=== PATIENT | female | born 1995 | race Caucasian/White ===

== ENCOUNTER → 2018-03-22 09:50 | Outpatient (CLI) | payer OTHER, SELFPAY ==
[2018-03-22 10:53] LABS: Add Manual Diff / Slide Review NO; Basophils Percent Auto 0.5 % (0-2); Eosinophils Percent Auto 0.6 % (2-4); Hematocrit 40.3 % (36-46); Hemoglobin 13.6 g/dL (12.0-16.0); Mean Corpuscular HGB Conc 33.8 % (30-36); Mean Corpuscular Hemoglobin 27.7 PG (26-34); Mean Corpuscular Volume 81.8 fL (80-100); Neutrophils Absolute Auto 8000 /uL (3000-5900); Neutrophils Percent Auto 76.9 % (50-75); Platelet Count 285 X10^3/uL (150-400); Red Blood Cell Count 4.93 X10^6/uL (4.0-5.2); Red Cell Distribution Width 12.6 % (11.6-14.8); White Blood Cell Count 10.4 X10^3/uL (4.5-11.0)
[2018-03-22 11:15] LABS: Appearance Urine UA CLEAR; Bilirubin Urine UA NEGATIVE (NEGATIVE); Color Urine UA YELLOW; Glucose Urine UA NEGATIVE (Normal); Ketones Urine UA TRACE (NEGATIVE); Leukocyte Esterase Urine UA TRACE (NEGATIVE); Nitrite Urine UA NEGATIVE (Negative); Occult Blood Urine UA NEGATIVE (Negative); Protein Urine UA TRACE (Negative); Urobilinogen Urine UA 0.2 E.U./dL (0.2); pH Urine UA 6.5 (4.5-8.0)
[2018-03-22 11:22] LABS: RBC Urine None Seen (0-5/HPF)
[2018-03-22 11:31] LABS: WBC Urine 1-5/HPF (0-5/HPF)
[2018-03-22 11:32] LABS: Bacteria Urine Moderate (10-30); Mucus Urine 2+ (Negative); Squamous Epithelial Cell Urine 5-10 /HPF
[2018-03-22 11:52] LABS: Hepatitis B Surface Antigen NEGATIVE s/c (NEGATIVE); Rubella Antibody IgG 15.4 IU/mL (>15)
[2018-03-22 12:09] LABS: HIV 1 and 2 Antibody NEGATIVE (NEGATIVE); Hep C Virus Ab w/Reflex Quant NEGATIVE s/c (NEGATIVE)
[2018-03-23 14:23] LABS: HSV 2 IGG AB < 0.90 index (< 0.90); HSV1IGG < 0.90 index (< 0.90)
[2018-03-23 15:51] LABS: RPR Screen Nonreactive (Nonreactive)
== END ==
PROVIDERS: PCP Specialist; Visit Provider Family Medicine
DX: Z34.01 Encounter for supervision of normal first pregnancy, first trimester (principal); Z3A.01 Less than 8 weeks gestation of pregnancy
CPT/HCPCS: 36415; 80055; 81003; 81015; 86695; 86696; 86703; 86787; 86803; 86850; 86900; 86901; 87086

== ENCOUNTER → 2018-05-26 13:55 | Outpatient (CLI) | payer OTHER, SELFPAY ==
[2018-06-02 10:40] LABS: AFP, Serum 52.3 ng/mL; Calc Gestational Age 16.4; Cigarette Smoker N; Donated Egg N; Donor Egg Age NOT GIVEN; Estriol, Free 2.03 ng/mL; Inhibin A, Dimeric 161 pg/mL; Maternal Ethnicity OTHER; Maternal Weight 127 lbs; Number of Fetuses 1; Previous Pregnancy Down Syndro N; hCG, MoM 0.61; hCG, Serum 22.8 IU/mL
== END ==
PROVIDERS: Visit Provider Family Medicine
DX: Z34.81 Encounter for supervision of other normal pregnancy, first trimester (principal); Z86.19 Personal history of other infectious and parasitic diseases
CPT/HCPCS: 36415; 82105; 82677; 84702; 86336; 87070

== ENCOUNTER → 2018-06-21 12:46 | Outpatient (CLI) | payer OTHER, SELFPAY ==
--- NOTE | 2018-06-21 12:48 | DI.US.S_ITS ---
PROCEDURE: US OB >= 14 WEEKS FETUS INDICATIONS: anatomy scan OUTSIDE/PRIOR DATING DATA: Last menstrual period (LMP): Unknown. LMP-based estimated date of delivery (CHAD): N./A.. First dating scan (date and location): 03/31/18. Estimated date of delivery (CHAD) from first dating scan: 11/05/18. TECHNIQUE: Real-time scanning was performed of the fetus, with image documentation and biometric measurements. Endovaginal scanning: No COMPARISON: [facility], , OB <= 14 WEEKS FETUS, 03/31/2018, 14:56. FINDINGS: General: A single living intrauterine gestation is present. Presentation: Vertex Placenta: Placental position is anterior, without previa. Amniotic fluid index: 17.5 cm, normal range is 5-24 cm. heart rate: 139 beats per minute. Maternal cervical canal: 3.9 cm long. Normal lower limit is 2.5 cm. biometrics: Biparietal diameter: 22 weeks Head circumference: 21 weeks 6 days Abdominal circumference: 21 weeks Femur length: 20 weeks 5 days Estimated gestational age from initial scan: 20 weeks 3 days Composite gestational age from present scan: 21 weeks 3 days Estimated weight and percentile: 393 g; 77 percentile Measurement variability for biometric dating: +/- 7 days from 14 weeks to 15 weeks 6 days gestation, +/- 10 days from 16 weeks to 21 weeks 6 days gestation, +/- 2 weeks from 22 weeks to 27 weeks 6 days gestation, +/- 3 weeks for 28 weeks gestation or later. weight reference: 4500 g or EFW >90/95% is considered macrosomia or large for gestational age. EFW <10% is small for gestational age. EFW 5% or less is considered intra-uterine growth restriction. Anatomic survey: Neuro: Ventricles are non-dilated at less than 10 mm. Cisterna magna is normal at 3-11 mm. Cerebellum is normal in size and morphology. Nuchal skin fold: Normal at less than 6 mm between 14-21 weeks gestational age. Face: Nose and lips, facial profile are normal. Spine: No evidence for spina bifida. Heart: 4-chambered heart is present, with normal ventricular outflow tracts. Diaphragm: Diaphragm is intact. Stomach: Left-sided stomach is present. Kidneys: No hydronephrosis. Normal is less than 5 mm in 2nd trimester, less than 7 mm in 3rd trimester. Cord: 3-vessel cord has orthotopic insertion. Bladder: Normal in size. Extremities: All 4 extremities identified. IMPRESSION: 1. Single living IUP redemonstrated and interval growth is normal. 2. Normal anatomic survey. Dictated by: Ismael Cameron [facility] Interpreted: Roxana Santoro MD on 06/21/2018 at 14:54 Approved by: Roxana Santoro M.D. on 06/21/2018 at 16:59
== END ==
PROVIDERS: PCP Specialist; Visit Provider Family Medicine
DX: Z34.92 Encounter for supervision of normal pregnancy, unspecified, second trimester (principal); Z3A.21 21 weeks gestation of pregnancy
CPT/HCPCS: 76811

== ENCOUNTER → 2018-08-30 12:13 | Outpatient (CLI) | payer OTHER, SELFPAY ==
[2018-08-30 14:15] LABS: Add Manual Diff / Slide Review NO; Basophils Absolute Auto 100 /uL (0-100); Basophils Percent Auto 0.4 % (0-2); Eosinophils Absolute Auto 200 /uL (0-450); Eosinophils Percent Auto 1.2 % (2-4); Hemoglobin 11.4 g/dL (12.0-16.0); Lymphocytes Absolute Auto 1800 /uL (1100-4500); Lymphocytes Percent Auto 12.2 % (25-40); Mean Corpuscular HGB Conc 33.6 % (30-36); Mean Corpuscular Hemoglobin 27.3 PG (26-34); Mean Corpuscular Volume 81.2 fL (80-100); Monocytes Absolute Auto 500 /uL (0-900); Monocytes Percent Auto 3.2 % (3-14); Neutrophils Absolute Auto 12100 /uL (1500-7000); Platelet Count 287 X10^3/uL (150-400); Red Blood Cell Count 4.19 X10^6/uL (4.0-5.2); Red Cell Distribution Width 12.9 % (11.6-14.8); White Blood Cell Count 14.5 X10^3/uL (4.5-11.0)
[2018-08-30 15:40] LABS: GTT (PREG) 1 Hour PP 50gm Dose 144 mg/dL (76-139)
== END ==
PROVIDERS: PCP Family Medicine; Visit Provider Family Medicine
DX: Z34.92 Encounter for supervision of normal pregnancy, unspecified, second trimester (principal); Z3A.24 24 weeks gestation of pregnancy
CPT/HCPCS: 36415; 82105; 82677; 82950; 84702; 85025; 86336

== ENCOUNTER → 2018-09-13 12:21 | Outpatient (CLI) | payer OTHER, SELFPAY ==
[2018-09-13 14:29] LABS: Glucose Fasting Gestational 75 mg/dL (76-95)
[2018-09-13 15:37] LABS: Glucose 1 Hour Gest 162 mg/dL (76-180)
[2018-09-13 15:38] LABS: Glucose 2 Hour Gest 121 mg/dL (76-155)
[2018-09-13 15:52] LABS: Glucose Tol Interp,Gestational INTERPRETATION
[2018-09-13 18:12] LABS: Glucose 3 Hour Gest 109 mg/dL (76-140)
== END ==
PROVIDERS: PCP Family Medicine; Visit Provider Family Medicine
DX: R73.09 Other abnormal glucose (principal)
CPT/HCPCS: 36415; 82951; 82952

== ENCOUNTER → 2018-10-11 08:34 | Outpatient (CLI) | payer OTHER, SELFPAY ==
[2018-10-13 12:48] LABS: Strep Grp B PCR NEG for Grp B Strep
== END ==
PROVIDERS: PCP Family Medicine; Visit Provider Family Medicine
DX: Z34.03 Encounter for supervision of normal first pregnancy, third trimester (principal); Z3A.36 36 weeks gestation of pregnancy
CPT/HCPCS: 87653

== ENCOUNTER 2018-10-12 20:58 | Observation (INO) | payer OTHER, SELFPAY | END 2018-10-12 23:15 | disposition home or self-care (01) | LOC: LABOR 21:02 | PROVIDERS: Admitting Provider Family Medicine; PCP Family Medicine; Visit Provider Family Medicine | DX: O26.893 Other specified pregnancy related conditions, third trimester (principal); M25.551 Pain in right hip; M25.521 Pain in right elbow; W19.XXXA Unspecified fall, initial encounter; Z3A.36 36 weeks gestation of pregnancy | CPT/HCPCS: 59025; 59050; G0378; G0379 ==

== ENCOUNTER 2018-11-03 11:52 | Observation (INO) | payer OTHER, SELFPAY ==
--- NOTE | 2018-11-03 12:51 | PM.OBTRLD ---
Visit Information Visit Information Date of evaluation: 11/03/18 Primary OB Provider: Evie Collazo Reason for Evaluation: Yes other Comments/Additional reasons for admission: Pt with 2x brief potential decels to the 80s heard on doppler in the clinic. PFSH Social History Smoking Status: Never smoker Social History Smoking Status: Never smoker Evaluation Evaluation Baseline heart rate: 120 Variability: Moderate (11-25) monitor accelerations: Present monitor decelerations: Absent Category of Tracing: I Diagnosis, Plan/Disposition Final Diagnosis (1) Non-reassuring heart tones complicating , antepartum: Current Visit: Yes Status: Acute Plan/Disposition Plan: Pt with reactive NST without decelerations on prolonged monitoring. Safe for discharge home. Discussed monitoring for ongoing movement. F/U appt next week scheduled. OB Disposition: home
== END 2018-11-03 13:30 | disposition home or self-care (01) ==
PROVIDERS: Admitting Provider Family Medicine; PCP Family Medicine; Visit Provider Family Medicine
DX: O36.8390 Maternal care for abnormalities of the fetal heart rate or rhythm, unspecified trimester, not applicable or unspecified (principal)
CPT/HCPCS: 59025; G0378; G0379

== ENCOUNTER 2018-11-03 21:49 | Inpatient (IN) | payer OTHER, SELFPAY ==
[2018-11-03 22:57] VITALS: BP 130/80
--- NOTE | 2018-11-04 | PATH_ITS ---
[facility] Accession Number: [id number] . 01 Material submitted: . placenta - PLACENTA . 01 Clinical history: . CULTURE FOR MATERNAL FEVER . 02 Diagnosis: Placenta, Delivery: Placenta parenchyma. Weight 512 grams. Chorionic villous maturation is consistent with a mature placenta. Moderate inter- and intravillous fibrin is present. No definite villitis identified. . . Membranes: Ruptured 5.5 cm from the placental disc margin. Very rare, small foci of chorioamnionitis present. Meconium staining present. . Umbilical Cord: Length 30.5 cm. Inserted 5.7 cm from the placental disc margin. Three vessels present. Focal, mild funisitis present. 11/08/2018 . 02 Electronically signed: . Amie Clark MD, Pathologist NPI- [id number] . 01 Gross description: . Received unfixed is an intact placenta which includes the placental disc (512 grams, 19.8 x 17.3 x 2.7 cm), membranes and umbilical cord (length-30.5 cm, diameter-up to 1.5 and 1.0 cm). The membranes are ruptured 5.5 cm from the edge of the placenta and are shiny and semi-translucent. The umbilical cord is attached 5.7 cm from the edge of the placenta and contains three vessels. The surface is smooth and shiny with no evidence of meconium identified. The maternal surface is dark maroon with normal cotyledon formation. The placental body is spongy with no nodules, masses or lesions identified. Section code: (A1) edge of placenta with membranes; (A2) umbilical cord, billing representative serial sections; (A3, A4, A5-A6) placenta, three full-thickness sections. Note: This is a split sample with a sample sent to microbiology for analysis. ([id number]) /MRV . 02 Pathologist provided ICD-10: O41.1031 . 02 CPT . 535615 Performed at: 01 [facility] [address] [id number] MD Ignacio Herrera MD Phone: [phone] Performed at: [id number] [place], [place] [id number] MD Charlene Ruby MD Phone: [phone]
[2018-11-04] MEDS: MORPHINE 10 MG/ML INJ 5 MG IM (04:46)
[2018-11-04] MEDS: hydrOXYzine 50 MG/ML INJ 25 MG IM (04:47)
[2018-11-04] MEDS: LACTATED RINGERS 1,000 ML 100 ML IV ×4 (06:30→15:00)
[2018-11-04 06:45] LABS: Add Manual Diff / Slide Review NO; Basophils Absolute Auto 100 /uL (0-100); Basophils Percent Auto 0.4 % (0-2); Eosinophils Absolute Auto 200 /uL (0-450); Hematocrit 31.5 % (36-46); Hemoglobin 10.1 g/dL (12.0-16.0); Lymphocytes Absolute Auto 2500 /uL (1100-4500); Lymphocytes Percent Auto 14.8 % (25-40); Mean Corpuscular HGB Conc 32.1 % (30-36); Mean Corpuscular Hemoglobin 24.3 PG (26-34); Mean Corpuscular Volume 75.8 fL (80-100); Monocytes Absolute Auto 900 /uL (0-900); Monocytes Percent Auto 5.5 % (3-14); Neutrophils Absolute Auto 13100 /uL (1500-7000); Neutrophils Percent Auto 78.3 % (50-75); Platelet Count 239 X10^3/uL (150-400); Red Blood Cell Count 4.16 X10^6/uL (4.0-5.2); Red Cell Distribution Width 13.6 % (11.6-14.8); White Blood Cell Count 16.7 X10^3/uL (4.5-11.0)
--- NOTE | 2018-11-04 08:01 | PM.OBHP.1 ---
OB HPI Date/Time Date of admission: 11/03/18 Date Patient Seen: 11/04/18 Time Patient Seen: 08:00 History of Present Condition Chief complaint: REJI LATHAM : 1 Para: 0 Estimated Date of Delivery: 11/07/18 Estimated Gestational Age (weeks): 39w4d Narrative: Kyleigh Medina is a 23 year old at 39w4d who presented with PROM. The pt reports that at approximately 9:15pm last night she felt a small gush of fluid, and then continued to leak after that time. She denies any vaginal bleeding. She was not feeling contractions or cramping at the time of rupture. Her contractions started early this morning. History of Present care: good care and initiated at week # (8) Dating criteria: LMP confirmed by 1st trimester US Ultrasounds: normal mid trimester US Obstetrical complications: none Medical complications: other (hx of asthma) Preadmission Labs Blood type: AB (+) positive -: Antibody screen: negative, GBS status: negative, HBsAG: negative, HIV: negative, HSV 1: negative, HSV 2: negative and RPR/VDLR: negative -: Rubella: immune and Varicella: immune HCT: 34.0 HCAB: negative 1 hr GTT: 144 3 hr GTT: 1 hr (162), 2 hr (121) and 3 hr (109) Fasting blood glucose: 75 Evaluation Evaluation Baseline heart rate: 120 Variability: Moderate (11-25) monitor accelerations: Present monitor decelerations: Absent Contraction Frequency (minutes): 3 Uterine Contraction Intensity: Strong/Firm Category of Tracing: I Cervical dilation (cm): 9 Cervical effacement (%): 100 station: 0 Laboratory results: Laboratory Tests 11/04/18 11/04/18 06:25 06:25 WBC 16.7 H RBC 4.16 Hgb 10.1 L Hct 31.5 L MCV 75.8 L MCH 24.3 L MCHC 32.1 RDW 13.6 Plt Count 239 Neut % (Auto) 78.3 H Lymph % (Auto) 14.8 L Saunders % (Auto) 5.5 Eos % (Auto) 1.0 L Baso % (Auto) 0.4 Neut # (Auto) 21913 H Lymph # (Auto) 2500 Saunders # (Auto) 900 Eos # (Auto) 200 Baso # (Auto) 100 Blood Type AB Positive Antibody Screen Negative [facility] Social History Smoking Status: Never smoker Social History Smoking Status: Never smoker Meds Home Medications Medication Instructions Recorded Confirmed Type fluticasone propionate 50 1 spray NASAL DAILY PRN 03/22/18 03/22/18 History mcg/actuation nasal spray,suspension 1 tab PO DAILY 03/22/18 03/22/18 History vitamin,calcium,zrbtdtcn-mame-nepvp acid tablet Allergies Allergy/AdvReac Type Severity Reaction Status Date / Time No Known Allergies Allergy Uncoded 03/22/18 09:49 Exam Narrative Exam Narrative: Gen: NAD, laying comfortably in bed, appears well CV: RRR, no murmurs Resp: clear to auscultation bilaterally Abd: soft, nondistended, gravid Ext: no edema Objective Labs Result Diagrams: 11/04/18 06:25 Labs: Laboratory Results - last 24 hr 11/04/18 11/04/18 06:25 06:25 WBC 16.7 H RBC 4.16 Hgb 10.1 L Hct 31.5 L MCV 75.8 L MCH 24.3 L MCHC 32.1 RDW 13.6 Plt Count 239 Neut % (Auto) 78.3 H Lymph % (Auto) 14.8 L Saunders % (Auto) 5.5 Eos % (Auto) 1.0 L Baso % (Auto) 0.4 Neut # (Auto) 38967 H Lymph # (Auto) 2500 Saunders # (Auto) 900 Eos # (Auto) 200 Baso # (Auto) 100 Blood Type AB Positive Antibody Screen Negative Assessment and Plan Assessment and Plan Assessment and Plan narrative: 23yo at 39w4d who presented with PROM. Now in active labor. GBS negative, Rh positive. - Expectant management, anticipate - GBS negative, no prophylaxis indicated - FHT reassuring - Epidural in place for pain control
--- NOTE | 2018-11-04 08:05 | P.HPOB_ITS ---
OB HPI Date/Time Date of admission: 11/03/18 Date Patient Seen: 11/04/18 Time Patient Seen: 08:00 History of Present Condition Chief complaint: REJI LATHAM : 1 Para: 0 Estimated Date of Delivery: 11/07/18 Estimated Gestational Age (weeks): 39w4d Narrative: Kyleigh Medina is a 23 year old at 39w4d who presented with PROM. The pt reports that at approximately 9:15pm last night she felt a small gush of fluid, and then continued to leak after that time. She denies any vaginal bleeding. She was not feeling contractions or cramping at the time of rupture. Her contractions started early this morning. History of Present care: good care and initiated at week # (8) Dating criteria: LMP confirmed by 1st trimester US Ultrasounds: normal mid trimester US Obstetrical complications: none Medical complications: other (hx of asthma) Preadmission Labs Blood type: AB (+) positive -: Antibody screen: negative, GBS status: negative, HBsAG: negative, HIV: negative, HSV 1: negative, HSV 2: negative and RPR/VDLR: negative -: Rubella: immune and Varicella: immune HCT: 34.0 HCAB: negative 1 hr GTT: 144 3 hr GTT: 1 hr (162), 2 hr (121) and 3 hr (109) Fasting blood glucose: 75 Evaluation Evaluation Baseline heart rate: 120 Variability: Moderate (11-25) monitor accelerations: Present monitor decelerations: Absent Contraction Frequency (minutes): 3 Uterine Contraction Intensity: Strong/Firm Category of Tracing: I Cervical dilation (cm): 9 Cervical effacement (%): 100 station: 0 Laboratory results: Laboratory Tests 11/04/18 11/04/18 06:25 06:25 WBC 16.7 H RBC 4.16 Hgb 10.1 L Hct 31.5 L MCV 75.8 L MCH 24.3 L MCHC 32.1 RDW 13.6 Plt Count 239 Neut % (Auto) 78.3 H Lymph % (Auto) 14.8 L Hand % (Auto) 5.5 Eos % (Auto) 1.0 L Baso % (Auto) 0.4 Neut # (Auto) 18920 H Lymph # (Auto) 2500 Hand # (Auto) 900 Eos # (Auto) 200 Baso # (Auto) 100 Blood Type AB Positive Antibody Screen Negative [facility] Social History Smoking Status: Never smoker Social History Smoking Status: Never smoker Meds Home Medications Medication Instructions Recorded Confirmed Type fluticasone propionate 50 1 spray NASAL DAILY PRN 03/22/18 03/22/18 History mcg/actuation nasal spray,suspension 1 tab PO DAILY 03/22/18 03/22/18 History vitamin,calcium,vmzypvfk-fnvf-spkdk acid tablet Allergies Allergy/AdvReac Type Severity Reaction Status Date / Time No Known Allergies Allergy Uncoded 03/22/18 09:49 Exam Narrative Exam Narrative: Gen: NAD, laying comfortably in bed, appears well CV: RRR, no murmurs Resp: clear to auscultation bilaterally Abd: soft, nondistended, gravid Ext: no edema Objective Labs Result Diagrams: 11/04/18 06:25 Labs: Laboratory Results - last 24 hr 11/04/18 11/04/18 06:25 06:25 WBC 16.7 H RBC 4.16 Hgb 10.1 L Hct 31.5 L MCV 75.8 L MCH 24.3 L MCHC 32.1 RDW 13.6 Plt Count 239 Neut % (Auto) 78.3 H Lymph % (Auto) 14.8 L Hand % (Auto) 5.5 Eos % (Auto) 1.0 L Baso % (Auto) 0.4 Neut # (Auto) 85172 H Lymph # (Auto) 2500 Hand # (Auto) 900 Eos # (Auto) 200 Baso # (Auto) 100 Blood Type AB Positive Antibody Screen Negative Assessment and Plan Assessment and Plan Assessment and Plan narrative: 23yo at 39w4d who presented with PROM. Now in active labor. GBS negative, Rh positive. - Expectant management, anticipate - GBS negative, no prophylaxis indicated - FHT reassuring - Epidural in place for pain control
--- NOTE | 2018-11-04 11:42 | PM.OBPNLAB ---
Date/Time Date Patient Seen: 11/04/18 Time Patient Seen: 11:30 Pain Control Pain control: epidural Pelvic Exam Dilation (cm): 10 Effacement (%): 100 station: +1 Amniotic membrane status: Ruptured Contractions Contraction frequency (min): 4 Contraction duration (min): 1 Contraction pattern: Regular Contraction intensity: Strong/Firm Status status: Category l Heart Rate Baseline: 130 Monitor Accelerations: Present Monitor Decelerations: Absent Monitor Variability: Moderate Assessment and Plan Comments: 23yo at 39w4d who presented with PROM. Transitioned to active labor without inductive agents. Now pushing for 2 hours with minimal descent. Pts pelvis is narrow at the outlet. Maternal exhaustion is setting in, with pushing becoming weaker. Will have Dr Tan come evaluate for possible forceps-assisted delivery. GBS negative, Rh positive. - GBS negative, no prophylaxis indicated - FHT reassuring - Epidural in place for pain control, working well - Will have Dr Tan evaluate for possible forceps delivery
--- NOTE | 2018-11-04 11:45 | P.PNOB_ITS ---
Date/Time Date Patient Seen: 11/04/18 Time Patient Seen: 11:30 Pain Control Pain control: epidural Pelvic Exam Dilation (cm): 10 Effacement (%): 100 station: +1 Amniotic membrane status: Ruptured Contractions Contraction frequency (min): 4 Contraction duration (min): 1 Contraction pattern: Regular Contraction intensity: Strong/Firm Status status: Category l Heart Rate Baseline: 130 Monitor Accelerations: Present Monitor Decelerations: Absent Monitor Variability: Moderate Assessment and Plan Comments: 23yo at 39w4d who presented with PROM. Transitioned to active labor without inductive agents. Now pushing for 2 hours with minimal descent. Pts pelvis is narrow at the outlet. Maternal exhaustion is setting in, with pushing becoming weaker. Will have Dr Tan come evaluate for possible forceps- assisted delivery. GBS negative, Rh positive. - GBS negative, no prophylaxis indicated - FHT reassuring - Epidural in place for pain control, working well - Will have Dr Tan evaluate for possible forceps delivery
--- NOTE | 2018-11-04 12:18 | PM.PREOP ---
Pre-operative Note Interval Note History & Physical reviewed/Exam performed by Physician: Yes Changes to H&P: No
--- NOTE | 2018-11-04 12:18 | PM.OBPNLAB ---
Date/Time Date Patient Seen: 11/04/18 Time Patient Seen: 12:00 Pain Control Pain control: epidural Pelvic Exam Dilation (cm): 10 Effacement (%): 100 station: +1 Amniotic membrane status: Ruptured Contractions Contraction frequency (min): 4 Contraction pattern: Regular Contraction intensity: Strong/Firm Status status: Category l Heart Rate Baseline: 140 Monitor Accelerations: Present Monitor Decelerations: Absent Monitor Variability: Moderate Assessment and Plan Comments: 23yo at 39w4d who presented with PROM, transitioned to active labor without induction agents. Pt with minimal descent after 2 hours and significant maternal exhaustion. Dr Tan consulted for forceps delivery. Laufe forceps were applied, and with traction applied for a total of 2 contractions and 4 pushes. Due to no descent, the forceps were terminated. The decision was made to proceed with primary due to failure to descend. The pt and her were consented for surgery. Discussed risks of infection, bleeding/hemorrhage, injury to other organs such as the bowel and bladder, injury to the fetus. The pt is agreeable to blood transfusion if medically necessary. The pts signed consent, and the form was placed in her chart. Pt to receive 2g Ancef prior to surgery.
--- NOTE | 2018-11-04 12:21 | P.PNOB_ITS ---
Date/Time Date Patient Seen: 11/04/18 Time Patient Seen: 12:00 Pain Control Pain control: epidural Pelvic Exam Dilation (cm): 10 Effacement (%): 100 station: +1 Amniotic membrane status: Ruptured Contractions Contraction frequency (min): 4 Contraction pattern: Regular Contraction intensity: Strong/Firm Status status: Category l Heart Rate Baseline: 140 Monitor Accelerations: Present Monitor Decelerations: Absent Monitor Variability: Moderate Assessment and Plan Comments: 23yo at 39w4d who presented with PROM, transitioned to active labor without induction agents. Pt with minimal descent after 2 hours and significant maternal exhaustion. Dr Tan consulted for forceps delivery. Laufe forceps were applied, and with traction applied for a total of 2 contractions and 4 pushes. Due to no descent, the forceps were terminated. The decision was made to proceed with primary due to failure to descend. The pt and her were consented for surgery. Discussed risks of infection , bleeding/hemorrhage, injury to other organs such as the bowel and bladder, injury to the fetus. The pt is agreeable to blood transfusion if medically necessary. The pts signed consent, and the form was placed in her chart. Pt to receive 2g Ancef prior to surgery.
[2018-11-04] MEDS: CEFAZOLIN 2 GM/100 ML FROZ.PIGGY IV (12:45)
--- NOTE | 2018-11-04 13:15 | SUR.OPER ---
Viable male born at 13:05. Cord blood x2 and placenta sent with L&D RN.
[2018-11-04] MEDS: miSOPROStol 200 MCG TABLET 400 MCG VAG (13:42)
[2018-11-04 13:48] VITALS: BP 112/44; PULSE 99; RESP 16; TEMP 36.6; O2SAT 98
[2018-11-04 13:53] VITALS: BP 117/50; PULSE 90; RESP 16; O2SAT 100
[2018-11-04] MEDS: MEPERIDINE 50 MG/ML INJ 25 MG IV (13:55)
[2018-11-04 13:58] VITALS: BP 111/59; PULSE 91; RESP 18; O2SAT 100
--- NOTE | 2018-11-04 13:59 | PM.OP.1 ---
Operative Date/Time/Diagnoses Date of procedure: 11/04/18 Time of procedure: 12:30 Pre-op diagnosis: 39w4d gestation GBS negative Rh positive Failure to descend Post-op diagnosis: same Procedure & Clinicians Procedure: Primary Same procedure as scheduled: Yes Indications: Failure to descend Surgeon: Evie Collazo Machine Bobbin Winder: Fernando Tan Click Yes if Unassisted: No Anesthesia Type: Epidural Operative Notes Findings: Normal uterus, ovaries, and tubes Closure Type: primary Specimen(s): none sent Applied: catheter Estimated Blood Loss (mL): 700 Blood products transfused: none Procedure in detail: OPERATIVE COURSE: The patient was taken to the operating room where epidural anesthesia was found to be adequate. She was then prepared and draped in the normal sterile fashion in the dorsal supine position with a leftward tilt. Anesthesia was tested and found to be adequate. A Pfannensteil skin incision was then made with the scalpel and carried through to the underlying layer of fascia with the scalpel. The fascia was incised in the midline and the incision extended laterally with the Montero scissors. The superior aspect of the fascial incision was then grasped with Vineet clamps, elevated, and the underlying rectus muscles dissected off bluntly and sharply where needed. Attention was then turned to the inferior aspect of the incision which, in a similar fashion, was grasped, tented up with Vineet clamps, and the rectus muscle dissected off bluntly and sharply with Montero scissors. The rectus muscles were then in the midline, and the peritoneum was identified and entered bluntly. The peritoneal incision was then extended with good visualization of the bladder. The bladder blade was then inserted and the vesicouterine peritoneum identified, grasped with pick-ups and entered sharply with the Metzenbaum scissors. The incision was then extended laterally and the bladder flap created digitally. The bladder blade was then reinserted and the lower uterine segment incised in a transverse fashion with the scalpel. The uterine incision was then extended superolaterally by pulling superolaterally on both sides. The bladder blade was removed the infant's head was flexed out of OP position and delivered atraumatically. The nose and mouth were suctioned with bulb suction and the cord was clamped and cut. The infant was handed off to the waiting nursing staff, crying. Cord blood was collected for Rh status. The placenta was then delivered with gentle cord traction. The uterus was then exteriorized and cleared of all clots and debris. The uterine incision was repaired with O-Vicryl in a running, locked fashion. A second layer of the same suture was used for imbrication. Bleeding was noted at the left side of the hysterotomy, which was controlled with a figure of eight and short running locked suture with O-Vicryl for excellent hemostasis. The gutters were cleared of all clots. Hysterotomy was investigated and found to be hemostatic. The bladder flap was reapproximated with 2-O Vicryl. The peritoneum was closed with 3-O Vicryl. The fascia was reapproximated with O-Vicryl in a running fashion. The subcutaneous tissue was reapproximated with 3-O Vicryl. The skin was closed with 4-O Vicryl. After surgery, with fundal massage the pt was noted to have a constant small flow of blood. She received 1000mcg rectal cytotec in addition to an additional 20 units of pitocin, and her bleeding stopped. ROM APPEARANCE: Clear BABY A DELIVERY TIME: 13:05 BABY A OUTCOME: Viable BABY A SEX: Male BABY A WEIGHT: 8lb1.4oz BABY A NUCHAL CORD: None BABY A # CORD VESSELS: 3 BABY A 1 MINUTE: 8 BABY A 5 MINUTES: 9 PLACENTA DELIVERY TIME: 13:07 PLACENTAL DELIVERY TYPE: Spontaneous PLACENTA APPEARANCE: Intact SPONGE AND NEEDLE COUNTS: Correct x3. DRESSING: Aquacel ANTICOAGULATION: SCDs applied prior to Surgery: Yes Preop antibiotics given (see MAR). The patient was taken to recovery room having tolerated procedure well. cytotec, 40 u pitocin Complications: none Condition: stable Plan for aftercare: Normal post care
[2018-11-04 14:03] VITALS: BP 115/69; PULSE 87; RESP 15; O2SAT 98
[2018-11-04 14:14] VITALS: BP 114/48; PULSE 103; RESP 19; TEMP 36.8; O2SAT 99
--- NOTE | 2018-11-04 17:54 | SUR.PHASEI ---
Late entry: stable pacu stay. Demerol given for shakes not resolved with bare hugger, resolved with med given, reported off to [facility], pt brought to [facility] by transporters and left in stable condition.
[2018-11-04 20:03] VITALS: TEMP 38.2
[2018-11-04] MEDS: ACETAMINOPHEN 325 MG TABLET 650 MG PO (20:03)
[2018-11-04] MEDS: KETOROLAC 30 MG/ML VIAL IV (20:04)
[2018-11-04] MEDS: GENTAMICIN 350 MG in SODIUM CHLORIDE 0.9% 100 ML 108.75 ML IV (20:05)
[2018-11-04] MEDS: CLINDAMYCIN 900 MG/50 ML PIGGYBACK 50 MG IV (21:10)
[2018-11-05] VITALS (15 sets, daily range): BP systolic 98–124; BP diastolic 59–79; PULSE 81–96; RESP 14–18; TEMP 36.6–36.8; O2SAT 95–98
[2018-11-05] MEDS: LACTATED RINGERS 1,000 ML 100 ML IV ×2 (02:40→12:14)
[2018-11-05] MEDS: CLINDAMYCIN 900 MG/50 ML PIGGYBACK 50 MG IV ×3 (04:39→20:37)
[2018-11-05] MEDS: KETOROLAC 30 MG/ML VIAL IV ×2 (04:40→12:05)
[2018-11-05 06:59] LABS: Hematocrit 21.4 % (36-46); Hemoglobin 6.9 g/dL (12.0-16.0)
[2018-11-05 07:26] LABS: Add Manual Diff / Slide Review NO; Basophils Absolute Auto 100 /uL (0-100); Basophils Percent Auto 0.5 % (0-2); Eosinophils Absolute Auto 100 /uL (0-450); Lymphocytes Absolute Auto 1900 /uL (1100-4500); Lymphocytes Percent Auto 14.2 % (25-40); Mean Corpuscular HGB Conc 32.5 % (30-36); Mean Corpuscular Hemoglobin 24.5 PG (26-34); Mean Corpuscular Volume 75.4 fL (80-100); Monocytes Absolute Auto 1000 /uL (0-900); Monocytes Percent Auto 7.5 % (3-14); Neutrophils Absolute Auto 10200 /uL (1500-7000); Neutrophils Percent Auto 76.8 % (50-75); Platelet Count 171 X10^3/uL (150-400); Red Blood Cell Count 2.78 X10^6/uL (4.0-5.2); Red Cell Distribution Width 13.3 % (11.6-14.8); White Blood Cell Count 13.3 X10^3/uL (4.5-11.0)
[2018-11-05 07:27] LABS: Hematocrit 20.9 % (36-46); Hemoglobin 6.8 g/dL (12.0-16.0)
[2018-11-05] MEDS: LANOLIN OINT 7 GM 1 APPLIC TOP (08:18)
[2018-11-05] MEDS: FERROUS GLUCONATE 324 MG TABLET PO (08:18)
[2018-11-05] MEDS: DOCUSATE 250 MG CAPSULE PO (08:18)
[2018-11-05] MEDS: PRENATAL VIT,CALC/IRON/FOLIC 1 TABLET 1 TAB PO (08:18)
[2018-11-05] MEDS: OXYCODONE/ACETAMINOPHEN 5/325 TABLET 2 TAB PO ×3 (11:44→20:37)
--- NOTE | 2018-11-05 12:44 | P.PNOB_ITS ---
Subjective - OB Narrative: The pt has no specific concerns this morning. Her feliciano remains in place and she has not yet ambulated. Her pain has been adequately controlled and minimal. Her lochia is appropriate. She has passed flatus. She denies feeling lightheaded or having palpitations, but has not moved in bed very much. Date Patient Seen: 11/05/18 Time Patient Seen: 08:00 Exam Vital Signs (past 8 hours): - 11/05/18 09:39 11/05/18 09:46 11/05/18 10:03 Temperature 98.1 F 98.1 F 97.9 F Pulse Rate 87 96 H 93 H Respiratory Rate 16 16 16 Blood Pressure 100/59 L 105/68 98/63 Pulse Oximetry 96 11/05/18 10:30 11/05/18 11:10 11/05/18 11:40 Temperature 98.2 F 98.0 F 98.1 F Pulse Rate 87 81 85 Respiratory Rate 16 18 16 Blood Pressure 105/67 108/65 112/68 Pulse Oximetry 96 98 97 11/05/18 11:44 11/05/18 12:05 Temperature 98.1 F 98.1 F Pulse Rate Respiratory Rate Blood Pressure Pulse Oximetry Oxygen Delivery Method Room Air Narrative Exam Narrative: Gen: NAD, sitting comfortably in bed, speaking easily, appears pale CV: RRR, no murmurs Resp: clear to auscultation bilaterally Abd: soft, tender to palpation over fundus without rebound/guarding/rigidity, nondistended, normoactive bowel sounds, dressing c/d/i Ext: no edema Objective Labs Result Diagrams: 11/05/18 06:30 Labs: Laboratory Results - last 24 hr 11/04/18 11/05/18 11/05/18 06:25 06:30 06:30 WBC 13.3 H RBC 2.78 L Hgb 6.9 L* 6.8 L* Hct 21.4 L 20.9 L* MCV 75.4 L MCH 24.5 L MCHC 32.5 RDW 13.3 Plt Count 171 Neut % (Auto) 76.8 H Lymph % (Auto) 14.2 L [place] % (Auto) 7.5 Eos % (Auto) 1.0 L Baso % (Auto) 0.5 Neut # (Auto) 78143 H Lymph # (Auto) 1900 [place] # (Auto) 1000 H Eos # (Auto) 100 Baso # (Auto) 100 Blood Type AB Positive Antibody Screen Negative Crossmatch See Detail Assessment & Plan (1) S/P : Status: Resolved Current Visit: Yes (2) Failure of descent in labor, delivered, current hospitalization: Status: Acute Current Visit: Yes (3) Failed forceps: Status: Acute Current Visit: Yes (4) fever: Status: Acute Current Visit: Yes (5) Acute blood loss anemia: Status: Acute Current Visit: Yes Plan Comments: 23yo POD #1 s/p primary for failure to descend and failed forceps. Pt developed a fever at approximately 6hrs , with Tmax 101.9F, with associated tachycardia. She was started on Gentamicin and Clindamycin, and has been afebrile since 8:45pm last night. Pt does have some fundal tenderness today, no evidence of significant atelectasis or DVT on exam today. The pt also has significant anemia from acute blood loss during surgery. - Will continue to treat for endometritis; continue Gentamicin and Clindamycin until afebrile for 24hrs - Tylenol PRN for fever - F/U blood cultures - Transfuse 2 units PRBCs today - Repeat CBC 1hr after transfusion completed - Remove feliciano to have ambulate after transfusions complete - Normal /postoperative care - support Time Spent With Patient Total time spent is greater than 50% in coordination of care (as documented) at patient's floor/unit and/or counseling patient: 15-24 minutes
[2018-11-05 17:30] LABS: Add Manual Diff / Slide Review NO; Basophils Absolute Auto 100 /uL (0-100); Basophils Percent Auto 0.3 % (0-2); Eosinophils Absolute Auto 100 /uL (0-450); Eosinophils Percent Auto 0.8 % (2-4); Hematocrit 29.4 % (36-46); Hemoglobin 10.1 g/dL (12.0-16.0); Lymphocytes Absolute Auto 1100 /uL (1100-4500); Lymphocytes Percent Auto 6.1 % (25-40); Mean Corpuscular HGB Conc 34.2 % (30-36); Mean Corpuscular Hemoglobin 25.8 PG (26-34); Mean Corpuscular Volume 75.4 fL (80-100); Monocytes Absolute Auto 1200 /uL (0-900); Monocytes Percent Auto 6.9 % (3-14); Neutrophils Absolute Auto 15500 /uL (1500-7000); Neutrophils Percent Auto 85.9 % (50-75); Platelet Count 193 X10^3/uL (150-400); Red Cell Distribution Width 14.1 % (11.6-14.8)
[2018-11-05] MEDS: IBUPROFEN 600 MG TABLET PO (18:34)
[2018-11-05] MEDS: GENTAMICIN 120 MG in SODIUM CHLORIDE 0.9% 100 ML 103 ML IV (22:39)
[2018-11-06] MEDS: OXYCODONE/ACETAMINOPHEN 5/325 TABLET 2 TAB PO ×5 (00:38→23:37)
[2018-11-06] MEDS: IBUPROFEN 600 MG TABLET PO ×4 (00:39→19:34)
[2018-11-06 05:18] LABS: Add Manual Diff / Slide Review NO; Basophils Absolute Auto 100 /uL (0-100); Basophils Percent Auto 0.3 % (0-2); Eosinophils Absolute Auto 300 /uL (0-450); Eosinophils Percent Auto 1.8 % (2-4); Hemoglobin 9.4 g/dL (12.0-16.0); Lymphocytes Absolute Auto 1900 /uL (1100-4500); Lymphocytes Percent Auto 10.1 % (25-40); Mean Corpuscular HGB Conc 33.4 % (30-36); Mean Corpuscular Hemoglobin 25.5 PG (26-34); Mean Corpuscular Volume 76.5 fL (80-100); Monocytes Absolute Auto 1200 /uL (0-900); Monocytes Percent Auto 6.7 % (3-14); Neutrophils Absolute Auto 15100 /uL (1500-7000); Neutrophils Percent Auto 81.1 % (50-75); Platelet Count 210 X10^3/uL (150-400); Red Blood Cell Count 3.67 X10^6/uL (4.0-5.2); White Blood Cell Count 18.6 X10^3/uL (4.5-11.0)
[2018-11-06 05:22] LABS: Estimated Glomerular Filt Rate > 60.0 mL/min (>60)
[2018-11-06] MEDS: PRENATAL VIT,CALC/IRON/FOLIC 1 TABLET 1 TAB PO (08:07)
[2018-11-06] MEDS: DOCUSATE 250 MG CAPSULE PO (08:07)
[2018-11-06] MEDS: FERROUS GLUCONATE 324 MG TABLET PO (08:07)
--- NOTE | 2018-11-06 10:26 | P.DS_ITS ---
Discharge Providers Date of admission: 11/03/18 21:49 Discharge Date: 11/07/18 Primary care physician: Evie Collazo MD Consults: 11/04/18 14:41 Consult to Ro[facility] [place] Routine Comment: Discharge provider: Evie Collazo MD Summary Date Patient Seen: 11/07/18 Time Patient Seen: 09:00 Procedures: Primary Hospital Course: The patient presented with PROM. She transition into active labor without inductive agents. She received an epidural for pain control. She progressed to complete. Due to maternal exhaustion and slow descent, forceps were attempted by Dr Tan. There was no descent with the forceps, and the decision was made to proceed with primary for failure to descend. The surgery was without complications, and she delivered a viable baby boy with APGARs 8/9, weight 8lb1.4oz. , the pt developed a fever up to 101.9F. She was started on Gentamicin and Clindamycin for endometritis, with resolution of the fever after 24hrs on antibiotics. The antibiotics were then discontinued. The pt also had significant anemia. She received 2 units of PRBCs with appropriate response in her H/H. At the time of discharge, the pt was feeling well and ready to go home. Her lochia was decreasing appropriately. She was voiding, ambulating, and passing flatus without difficulty. Her pain was adequately controlled. She was with good latch. She will f/u in clinic on 11/10 for incision check. She is undecided regarding contraception, and will likely use the rhythm method. Peripartum Data Infant Delivery Method: Section Procedures: Primary 1: Gender: Male Disposition of : home Discharge Diagnosis (1) S/P : Status: Resolved (2) Failure of descent in labor, delivered, current hospitalization: Status: Acute (3) Failed forceps: Status: Acute (4) fever: Status: Acute (5) Acute blood loss anemia: Status: Acute Status at Discharge Cognitive/behavioral status at discharge: oriented Functional status at discharge: independent ambulation Overall status at discharge: patient is progressing back to baseline Time Spent with Patient Total time spent providing and/or coordinating discharge services: Greater than 30 minutes Objective Labs Result Diagrams: 11/06/18 04:42 11/06/18 04:42 Labs: Laboratory Results - last 24 hr 11/04/18 11/05/18 11/06/18 06:25 16:30 04:42 WBC 18.0 H RBC 3.90 L Hgb 10.1 L Hct 29.4 L MCV 75.4 L MCH 25.8 L MCHC 34.2 RDW 14.1 Plt Count 193 Neut % (Auto) 85.9 H Lymph % (Auto) 6.1 L [place] % (Auto) 6.9 Eos % (Auto) 0.8 L Baso % (Auto) 0.3 Neut # (Auto) 24329 H Lymph # (Auto) 1100 [place] # (Auto) 1200 H Eos # (Auto) 100 Baso # (Auto) 100 Creatinine 0.60 Estimated GFR > 60.0 Blood Type AB Positive Antibody Screen Negative Crossmatch See Detail 11/06/18 04:42 WBC 18.6 H RBC 3.67 L Hgb 9.4 L Hct 28.0 L MCV 76.5 L MCH 25.5 L MCHC 33.4 RDW 14.0 Plt Count 210 Neut % (Auto) 81.1 H Lymph % (Auto) 10.1 L [place] % (Auto) 6.7 Eos % (Auto) 1.8 L Baso % (Auto) 0.3 Neut # (Auto) 52674 H Lymph # (Auto) 1900 [place] # (Auto) 1200 H Eos # (Auto) 300 Baso # (Auto) 100 Creatinine Estimated GFR Blood Type Antibody Screen Crossmatch Exam Vital Signs (past 8 hours): Oxygen Delivery Method Room Air Narrative Exam Narrative: Gen: NAD, sitting comfortably in chair, appears well CV: RRR, no murmurs Resp: clear to auscultation bilaterally Abd: soft, nondistended, appropriately tender, normoactive bowel sounds, dressing c/d/i Ext: trace edema Discharge Plan Discharge Plan Patient Disposition: Home Discharge Med Rec/Prescriptions Prescriptions: New acetaminophen 325 mg Tablet 650 mg PO Q6HR PRN (Reason: As Needed For Fever/Mild Pain) Qty: 30 RF: 0 oxycodone-acetaminophen 5-325 mg Tablet 2 tab PO Q4HR PRN (Reason: Pain, Severe (7-10)) Qty: 40 RF: 0 ibuprofen 600 mg Tablet 600 mg PO Q6HR PRN (Reason: As Needed For Fever/Mild Pain) Qty: 30 RF: 0 docusate sodium 250 mg Capsule 250 mg PO DAILY Qty: 30 RF: 0 Zaf-C-Wpvjup Cream 1 applic topical PRN PRN (Reason: Tenderness) Qty: 15 RF: 0 ferrous gluconate 324 mg (38 mg iron) Tablet 324 mg PO DAILY Qty: 30 RF: 0 Continued prenat.vits,zack,bhh-okhr-rxtny [ Vitamin] tablet 1 tab PO DAILY RF: 0 fluticasone propionate 50 mcg/actuation spray,suspension 1 spray NASAL DAILY PRN (Reason: allergy symptoms) RF: 0 No Action ondansetron 4 mg tablet,disintegrating 4 mg PO TID-QID PRN (Reason: nausea and vomiting) Qty: 10 RF: 0 Follow up/Referrals: Evie Collazo MD [Primary Care Provider] - 11/10/18 2:00 pm (Thursday,November at 2:00pm with for dressing removal) Provider Discharge Instructions Diet: Diet as Tolerated and Regular Skin/Wound/Dressing Care Report to your healthcare provider any signs of infection, such as:: chills, fever, increased pain, unusual drainage and unusual redness Visit Report/Discharge Packet Instructions: DI for Discharge Data Primary Care Provider: Evie Collazo Attending Provider: Evie Collazo Admit Date/Time: 11/03/18 21:49 Discharges patient from system. Discharge Date/Time: 11/07/18 13:20
[2018-11-06 15:00] VITALS: BP 103/65; PULSE 98; RESP 16; TEMP 36.7
--- NOTE | 2018-11-06 21:51 | P.PNOB_ITS ---
Subjective - OB Date Patient Seen: 11/06/18 Time Patient Seen: 09:30 Interval history: The pt reports that she is overall feeling well. She has been up multiple times, and feels good with ambulation. Her pain is adequately controlled. Her lochia is decreasing appropriately. She continues to pass flatus. She had some gas pain yesterday, but states this is resolved. She continues to nurse with good latch. Exam Vital Signs (past 8 hours): Oxygen Delivery Method Room Air Narrative Exam Narrative: Gen: NAD, sitting comfortably in chair, appears well CV: RRR, no murmurs Resp: clear to auscultation bilaterally Abd: soft, appropriately tender, nondistended, normoactive bowel sounds Ext: trace edema Objective Labs Result Diagrams: 11/06/18 04:42 11/06/18 04:42 Labs: Laboratory Results - last 24 hr 11/06/18 11/06/18 04:42 04:42 WBC 18.6 H RBC 3.67 L Hgb 9.4 L Hct 28.0 L MCV 76.5 L MCH 25.5 L MCHC 33.4 RDW 14.0 Plt Count 210 Neut % (Auto) 81.1 H Lymph % (Auto) 10.1 L [place] % (Auto) 6.7 Eos % (Auto) 1.8 L Baso % (Auto) 0.3 Neut # (Auto) 42718 H Lymph # (Auto) 1900 [place] # (Auto) 1200 H Eos # (Auto) 300 Baso # (Auto) 100 Creatinine 0.60 Estimated GFR > 60.0 Assessment & Plan (1) S/P : Status: Resolved Current Visit: Yes (2) Failure of descent in labor, delivered, current hospitalization: Status: Acute Current Visit: Yes (3) Failed forceps: Status: Acute Current Visit: Yes (4) fever: Status: Acute Current Visit: Yes (5) Acute blood loss anemia: Status: Acute Current Visit: Yes Plan Comments: 23yo POD #1 s/p primary for failure to descend and failed forceps. Pt developed a fever at approximately 6hrs , with Tmax 101.9F, with associated tachycardia. She was started on Gentamicin and Clindamycin, and has now been afebrile for > 24hrs. Most likely due to endometritis. The pt also has significant anemia from acute blood loss during surgery, s/p transfusion 2 units PRBCs with good response in H/H. - Monitor closely for fever - Normal /postoperative care - support Time Spent With Patient Total time spent is greater than 50% in coordination of care (as documented) at patient's floor/unit and/or counseling patient: 15-24 minutes
[2018-11-07] MEDS: OXYCODONE/ACETAMINOPHEN 5/325 TABLET 2 TAB PO ×3 (03:50→12:06)
[2018-11-07] MEDS: IBUPROFEN 600 MG TABLET PO ×2 (03:51→12:06)
[2018-11-07] MEDS: PRENATAL VIT,CALC/IRON/FOLIC 1 TABLET 1 TAB PO (07:57)
[2018-11-07] MEDS: FERROUS GLUCONATE 324 MG TABLET PO (07:57)
[2018-11-07] MEDS: DOCUSATE 250 MG CAPSULE PO (07:58)
== END 2018-11-07 13:20 | disposition home or self-care (01) | DRG 786 ==
PROVIDERS: Admitting Provider Family Medicine; PCP Family Medicine; Visit Provider Family Medicine
PROC: 10D00Z1 Extraction of Products of Conception, Low, Open Approach (ICD-10-PCS; CPT 59514; principal; 2018-11-04 12:00)
DX: O64.8XX0 Obstructed labor due to other malposition and malpresentation, not applicable or unspecified (principal); O41.10 Infection of amniotic sac and membranes, unspecified; D62 Acute posthemorrhagic anemia; O86.4 Pyrexia of unknown origin following delivery; O66.5 Attempted application of vacuum extractor and forceps; Z3A.39 39 weeks gestation of pregnancy; Z37.0 Single live birth; O90.81 Anemia of the puerperium
CPT/HCPCS: 01967; 01968; 36415; 36430; 59025; 59050; 59510; 59514; 82565; 84112; 85014; 85018; 85025; 86850; 86900; 86901; 87040; G0378; P9016; G0379; J0690; J1885; J2175; J2270; J2274; J2405; J2590; J3010; J3410; S0191

== ENCOUNTER 2018-11-07 20:02 | Emergency (ER) | payer OTHER, SELFPAY ==
[2018-11-07 20:07] VITALS: BP 99/65; PULSE 92; RESP 14; TEMP 36.7; O2SAT 99; BMI 25.7
--- NOTE | 2018-11-07 20:28 | ED_ITS ---
HPI - Nausea/Vomiting/Diarrhea General Chief complaint: Nausea/Vomiting/Diarrhea Stated complaint: disoriented Time Seen by Provider: 11/07/18 20:05 Source: patient and family Mode of arrival: ambulatory Limitations: no limitations History of Present Illness HPI Narrative: 23F nonsmoker and otherwise healthy presents with a chief complaint nausea, weakness and extreme fatigue. She just delivered her 1st child by 3 days ago, all went well. She had a failure to progress and failure to use for sepsis and resultant . She has had persistent nausea but no vomiting. She denies any fever or chills. She is profoundly tired and nauseated. She historically gets motion sickness and states it has been much worse since her discharge from the hospital. She is here with her who is being evaluated for jaundice. She denies any significant lower abdominal pain and states there has been no drainage from the C section incision. She denies any significant vaginal bleeding or discharge. She denies dysuria, frequency or urgency MD complaint: nausea Onset (ago): day(s) Description of Diarrhea: none Associated Abdominal Pain: No Severity: mild Context: recent surgery/procedure Associated symptoms: fatigue Related Data Home Medications Medication Instructions Recorded Confirmed fluticasone propionate 50 1 spray NASAL DAILY PRN 03/22/18 03/22/18 mcg/actuation nasal spray,suspension 1 tab PO DAILY 03/22/18 03/22/18 vitamin,calcium,lyznavfa-ucvr-dkwxn acid tablet Previous Rx's Medication Instructions Recorded acetaminophen 650 mg PO Q6HR PRN #30 tab 11/06/18 docusate sodium 250 mg PO DAILY #30 cap 11/06/18 ferrous gluconate 324 mg PO DAILY #30 tab 11/06/18 ibuprofen 600 mg PO Q6HR PRN #30 tab 11/06/18 lanolin [Crw-O-Okixdz] 1 applic TOPICAL PRN PRN #15 g 11/06/18 oxycodone-acetaminophen 2 tab PO Q4HR PRN #40 tab 11/06/18 ondansetron 4 mg PO TID-QID PRN #10 tab 11/07/18 Allergies Allergy/AdvReac Type Severity Reaction Status Date / Time No Known Drug Allergies Allergy Verified 11/04/18 19:08 Review of Systems Constitutional Denies chills, Denies fever(s), Denies lethargy and Reports weakness Eyes Denies change in vision, Denies eye discharge, Denies irritation and Denies loss of vision ENT Ears, Nose, Mouth, and Throat: Denies change in voice, Denies neck pain and Denies sore throat Cardiovascular Denies chest pain, Denies irregular heart rhythm, Denies lightheadedness, Denies palpitations, Denies dyspnea, Denies dyspnea on exertion and Denies orthopnea Respiratory Denies cough, Denies dyspnea, Denies dyspnea on exertion and Denies wheezing Gastrointestinal Gastrointestinal: Denies abdominal pain, Denies change in bowel habits, Denies diarrhea, Reports nausea and Denies vomiting Genitourinary Denies hematuria, Denies flank pain, Denies urinary incontinence and Denies urinary urgency Musculoskeletal Denies neck pain Integumentary/Breasts Denies pruritus, Denies erythema, Denies rash and Denies wounds Neurologic Denies confusion, Denies loss of vision and Reports weakness Psychiatric Denies anxiety, Denies confusion, Denies depression, Denies homicidal ideation and Denies suicidal ideation Endocrine Denies palpitations Hematologic/Lymphatic Denies easy bruising Allergic/Immunologic Denies wheezing [facility] Surgical History S/P (Resolved) Social History Smoking Status: Never smoker Social History Smoking Status: Never smoker Exam Narrative Exam Narrative: GENERAL: 23F is clearly weak, and fatigued. HEAD: Atraumatic. Normocephalic. No temporal or scalp tenderness. EYES: Pupils equal round and reactive. Extraocular motions intact. No scleral icterus. No injection or drainage. ENT: Dry membranes. Nose without bleeding, purulent drainage or septal hematoma. Throat without erythema, tonsillar hypertrophy or exudate. Uvula midline. Airway patent. NECK: Trachea midline. No JVD or lymphadenopathy. Supple, nontender, no meningeal signs. CARDIOVASCULAR: Regular rate and rhythm without murmurs, gallops, or rubs. RESPIRATORY: Clear to auscultation. Breath sounds equal bilaterally. No wheezes, rales, or rhonchi. GASTROINTESTINAL: Abdomen soft, non-tender, mild distension. C section incision bandage is clean, dry and intact. No hepato-splenomegaly, or palpable masses. No guarding. EXTREMITIES: No clubbing, cyanosis, or edema. No joint tenderness, effusion, or edema noted. BACK: Nontender without deformity or crepitance. No flank tenderness. NEURO: AOx3. SKIN: No rash or erythema. Initial Vital Signs Initial Vital Signs: Vital Signs Temperature 98.1 F 11/07/18 20:07 Pulse Rate 92 H 11/07/18 20:07 Respiratory Rate 14 11/07/18 20:07 Blood Pressure 99/65 11/07/18 20:07 Pulse Oximetry 99 11/07/18 20:07 Course Orders Ordered: ED Orders 11/07/18 20:25 Basic Metabolic Panel Stat Complete Blood Count AUTO DIFF Stat Discontinued Medications Sodium Chloride (Normal Saline 0.9%) 1,000 mls @ 1,000 mls/hr IV BOLUS ONE Stop: 11/07/18 21:12 Last Admin: 11/07/18 20:32 Dose: 1,000 mls/hr Ondansetron HCl (Zofran) 4 mg IV Q4HR PRN PRN Reason: Nausea And Vomiting Last Admin: 11/07/18 20:32 Dose: 4 mg Ondansetron HCl (Zofran Odt Prepack) 1 bottle MISC SEEINSTR ONE Stop: 11/07/18 20:42 Last Admin: 11/07/18 21:33 Dose: 1 bottle Reevaluation(s) Reevaluation #1: patient feels much better after the above stated therapies Vital Signs - 8 hr 11/07/18 20:07 11/07/18 21:13 Temperature 98.1 F 97.3 F L Pulse Rate 92 H 84 Respiratory Rate 14 16 Blood Pressure 99/65 Blood Pressure [Left Arm] 107/73 Pulse Oximetry 99 96 MDM - Nausea/Vomiting/Diarrhea Lab Data Result diagrams: 11/07/18 20:25 11/07/18 20:25 Lab Results 11/07/18 11/07/18 Range/Units 20:25 20:25 WBC 21.9 H (4.5-11.0) X10^3/uL RBC 3.52 L (4.0-5.2) X10^6/uL Hgb 9.0 L (12.0-16.0) g/dL Hct 26.9 L (36-46) % MCV 76.5 L (80-100) fL MCH 25.5 L (26-34) PG MCHC 33.3 (30-36) % RDW 14.5 (11.6-14.8) % Plt Count 261 (150-400) X10^3/uL Neut % (Auto) 83.1 H (50-75) % Lymph % (Auto) 7.3 L (25-40) % [place] % (Auto) 6.8 (3-14) % Eos % (Auto) 2.5 (2-4) % Baso % (Auto) 0.3 (0-2) % Neut # (Auto) 96528 H (5471-6964) /uL Lymph # (Auto) 1600 (6953-8082) /uL [place] # (Auto) 1500 H (0-900) /uL Eos # (Auto) 600 H (0-450) /uL Baso # (Auto) 100 (0-100) /uL Sodium 135 L (137-145) mmol/L Potassium 4.0 (3.4-5.1) mmol/L Chloride 101 (98-107) mmol/L Carbon Dioxide 24 (22-32) mmol/L BUN 8 (7-17) mg/dL Creatinine 0.70 (0.52-1.04) mg/dL Estimated GFR > 60.0 (>60) mL/min BUN/Creatinine Ratio 11.4 (6-22) Glucose 95 (70-100) mg/dL Calcium 8.9 (8.4-10.2) mg/dL Discharge Plan Departure Patient Disposition: Home Clinical Impression: Acute dehydration, Nausea Discharge Date/Time: 11/07/18 21:34 Interventions: ED Discharge Assessment Last Done: 11/07/18 21:34 Instructions: DI for Dehydration -- Adult Activity Restrictions/Additional Instructions: 1. Drink plenty of fluids with frequent small sips. 2. For the next 24 hours a clear liquid diet is advised. After that please employ a brat diet which would include bananas, rice, apples, toast. 3. Please take medications as directed. A prescription for Zofran (antinausea) was electronically transmitted to [facility] in [place]. 4. Please follow-up with your doctor in the next 1-2 days. Call the office for an appointment. 5. Please return to the emergency Department for any worsening or persistent symptoms, such as increasing pain or fever. Prescriptions: New ondansetron 4 mg tablet,disintegrating 4 mg PO TID-QID PRN (Reason: nausea and vomiting) Qty: 10 RF: 0 No Action prenat.vits,zack,bsb-elev-vsbsz [ Vitamin] tablet 1 tab PO DAILY RF: 0 fluticasone propionate 50 mcg/actuation spray,suspension 1 spray NASAL DAILY PRN (Reason: allergy symptoms) RF: 0 acetaminophen 325 mg Tablet 650 mg PO Q6HR PRN (Reason: As Needed For Fever/Mild Pain) Qty: 30 RF: 0 oxycodone-acetaminophen 5-325 mg Tablet 2 tab PO Q4HR PRN (Reason: Pain, Severe (7-10)) Qty: 40 RF: 0 ibuprofen 600 mg Tablet 600 mg PO Q6HR PRN (Reason: As Needed For Fever/Mild Pain) Qty: 30 RF: 0 docusate sodium 250 mg Capsule 250 mg PO DAILY Qty: 30 RF: 0 Ysl-Y-Vjjcie Cream 1 applic topical PRN PRN (Reason: Tenderness) Qty: 15 RF: 0 ferrous gluconate 324 mg (38 mg iron) Tablet 324 mg PO DAILY Qty: 30 RF: 0 Referrals: Evie Collazo MD [Primary Care Provider] -
[2018-11-07] MEDS: SODIUM CHLORIDE 0.9% 1,000 ML 1000 ML IV (20:32)
[2018-11-07] MEDS: ONDANSETRON 4 MG/2 ML INJ IV (20:32)
[2018-11-07 20:41] LABS: Add Manual Diff / Slide Review NO; Basophils Absolute Auto 100 /uL (0-100); Basophils Percent Auto 0.3 % (0-2); Eosinophils Absolute Auto 600 /uL (0-450); Eosinophils Percent Auto 2.5 % (2-4); Hematocrit 26.9 % (36-46); Lymphocytes Absolute Auto 1600 /uL (1100-4500); Lymphocytes Percent Auto 7.3 % (25-40); Mean Corpuscular HGB Conc 33.3 % (30-36); Mean Corpuscular Hemoglobin 25.5 PG (26-34); Mean Corpuscular Volume 76.5 fL (80-100); Monocytes Absolute Auto 1500 /uL (0-900); Monocytes Percent Auto 6.8 % (3-14); Neutrophils Absolute Auto 18200 /uL (1500-7000); Neutrophils Percent Auto 83.1 % (50-75); Platelet Count 261 X10^3/uL (150-400); Red Blood Cell Count 3.52 X10^6/uL (4.0-5.2); Red Cell Distribution Width 14.5 % (11.6-14.8); White Blood Cell Count 21.9 X10^3/uL (4.5-11.0)
[2018-11-07 20:45] LABS: BUN Creatinine Ratio 11.4 (6-22); Blood Urea Nitrogen 8 mg/dL (7-17); Calcium 8.9 mg/dL (8.4-10.2); Carbon Dioxide 24 mmol/L (22-32); Chloride 101 mmol/L (98-107); Estimated Glomerular Filt Rate > 60.0 mL/min (>60); Glucose 95 mg/dL (70-100); HEMOLYSIS < 15 (0-50); Sodium 135 mmol/L (137-145)
[2018-11-07 21:13] VITALS: BP 107/73; PULSE 84; RESP 16; TEMP 36.3; O2SAT 96
[2018-11-07] MEDS: ONDANSETRON 4 MG ODT PREPACK 1 BOTTLE MISC (21:33)
== END 2018-11-07 21:34 | disposition home or self-care (01) ==
PROVIDERS: Emergency Provider Emergency Medicine; PCP Family Medicine
DX: E86.0 Dehydration (principal); R11.0 Nausea
CPT/HCPCS: 36591; 80048; 85025; 96361; 96374; 99282; 99283; 99284; J2405

== ENCOUNTER → 2018-11-09 16:38 | Outpatient (CLI) | payer OTHER, SELFPAY ==
[2018-11-09 17:41] LABS: Bilirubin Urine UA NEGATIVE (NEGATIVE); Color Urine UA RED; Glucose Urine UA NEGATIVE (Negative); Ketones Urine UA TRACE (NEGATIVE); Leukocyte Esterase Urine UA 2+ (NEGATIVE); Nitrite Urine UA NEGATIVE (Negative); Occult Blood Urine UA 3+ (Negative); Protein Urine UA 2+ (Negative)
[2018-11-09 17:51] LABS: Appearance Urine UA OTHER
[2018-11-09 17:58] LABS: Amorphous Sediment Urine 1+; Bacteria Urine Moderate (10-30); Culture Indicated Urine Specimen Cultured; Mucus Urine 1+ (Negative); RBC Urine >100/HPF (0-5/HPF); Renal Epithelial Cells Urine 1-5/HPF (0-1/HPF); Squamous Epithelial Cell Urine 0-1 /HPF (0-5/HPF); WBC Urine 30-100/HPF (0-5/HPF)
== END ==
PROVIDERS: PCP Family Medicine; Visit Provider Family Medicine
DX: R30.0 Dysuria (principal)
CPT/HCPCS: 81001; 87086

== ENCOUNTER 2019-10-24 19:45 | Emergency (ER) | payer OTHER, SELFPAY ==
[2019-10-24 19:57] VITALS: BP 116/73; PULSE 85; RESP 18; TEMP 37; O2SAT 98; BMI 21.2
[2019-10-24 20:20] LABS: UR Morphine/Opiate cutoff 300 Negative (Negative); Ur Creatinine Normal (Normal); Ur Specific Gravity Normal (Normal); Urine Amphetamines Negative (Negative); Urine Barbiturates Negative (Negative); Urine Benzodiazepines Negative (Negative); Urine Cocaine Negative (Negative); Urine MDMA Negative (Negative); Urine Methadone Negative (Negative); Urine Methamphetamines Negative (Negative); Urine Oxycodone Negative (Negative); Urine Phencyclidine Negative (Negative); Urine Tetrahydrocannabinol Negative (Negative); Urine Tricyclic Antidepressant Negative (Negative); Urine pH Normal (Normal)
[2019-10-24 20:34] VITALS: BP 106/61; PULSE 67; RESP 12; O2SAT 98
[2019-10-24 20:45] LABS: Add Manual Diff / Slide Review NO; Basophils Absolute Auto 100 /uL (0-100); Basophils Percent Auto 0.9 % (0-2); Eosinophils Absolute Auto 100 /uL (0-450); Eosinophils Percent Auto 1.4 % (2-4); Hematocrit 37.7 % (36-46); Hemoglobin 12.7 g/dL (12.0-16.0); Lymphocytes Absolute Auto 1700 /uL (1100-4500); Lymphocytes Percent Auto 17.3 % (25-40); Mean Corpuscular HGB Conc 33.6 % (30-36); Mean Corpuscular Hemoglobin 25.8 PG (26-34); Mean Corpuscular Volume 76.8 fL (80-100); Monocytes Absolute Auto 500 /uL (0-900); Monocytes Percent Auto 4.8 % (3-14); Neutrophils Absolute Auto 7400 /uL (1500-7000); Neutrophils Percent Auto 75.6 % (50-75); Platelet Count 282 X10^3/uL (150-400); Red Blood Cell Count 4.91 X10^6/uL (4.0-5.2); Red Cell Distribution Width 14.4 % (11.6-14.8); White Blood Cell Count 9.7 X10^3/uL (4.5-11.0)
[2019-10-24 20:49] LABS: Alanine Aminotransferase 18 IU/L (<35); Albumin 4.8 g/dL (3.5-5.0); Albumin Globulin Ratio 1.5 (1.0-2.8); Alkaline Phosphatase 60 U/L (38-126); Aspartate Aminotransferase 27 IU/L (14-36); BUN Creatinine Ratio 12.6 (6-22); Bilirubin Total 0.9 mg/dL (0.2-1.3); Blood Urea Nitrogen 11 mg/dL (7-17); Calcium 9.6 mg/dL (8.4-10.2); Carbon Dioxide 20 mmol/L (22-32); Chloride 106 mmol/L (98-107); Estimated Glomerular Filt Rate > 60.0 mL/min (>60); Globulin 3.1 g/dL (1.7-4.1); Glucose 101 mg/dL (70-100); HEMOLYSIS 15 (0-50); Sodium 137 mmol/L (137-145); Total Protein 7.9 g/dL (6.3-8.2)
[2019-10-24] MEDS: ONDANSETRON 4 MG/2 ML INJ IV (21:08)
[2019-10-24] MEDS: SODIUM CHLORIDE 0.9% 1,000 ML 1000 ML IV (21:08)
[2019-10-24 21:26] VITALS: BP 99/65; PULSE 62; RESP 12; O2SAT 99
[2019-10-24 22:12] VITALS: BP 99/63; PULSE 73; RESP 18; O2SAT 98
--- NOTE | 2019-10-24 22:30 | ED.DIZZY ---
HPI - Dizziness General Chief Complaint: Dizziness Stated Complaint: New med/ phys reff/ 11:30 throwing up/ dizzy Time Seen by Provider: 10/24/19 19:45 Source: patient Mode of arrival: Ambulatory Limitations: no limitations History of Present Illness HPI Narrative: 24-year-old female nonsmoker with noncontributory medical history presents with family and a chief complaint of sudden onset of nausea and vomiting when going home for lunch today. Her dizziness seems to be associated with the nausea and vomiting and came on at the same time. She becomes more dizzy upon standing and has improvement with rest. She denies any head injury. She denies any runny nose, sore throat or cough. She denies any ear pain. She denies any abdominal pain, or exposure to bad food. She denies exposure to ill persons. 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 She denies any pain in her mouth or throat, denies any rash or trouble breathing MD complaint: lightheadedness Onset (ago): hour(s) Timing: gradual onset Description: lightheadedness History of similar episodes: No History of trauma: No Severity: mild Relieving factors: rest Exacerbating factors: position Associated symptoms: nausea and vomiting Related Data Home Medications Medication Instructions Recorded Confirmed fluticasone propionate 50 1 spray NASAL DAILY PRN 03/22/18 11/10/18 mcg/actuation nasal spray,suspension prenat.vits,zack,uka-neyg-npclm 1 tab PO DAILY 03/22/18 11/10/18 Previous Rx's Medication Instructions Recorded acetaminophen 650 mg PO Q6HR PRN #30 tab 11/06/18 docusate sodium 250 mg PO DAILY #30 cap 11/06/18 ferrous gluconate 324 mg PO DAILY #30 tab 11/06/18 ibuprofen 600 mg PO Q6HR PRN #30 tab 11/06/18 lanolin [[id number]] 1 applic TOPICAL PRN PRN #15 g 11/06/18 ondansetron 4 mg disintegrating 4 mg PO TID-QID PRN #30 tab 11/08/18 tablet ondansetron 4 mg PO TID-QID PRN #10 tab 10/24/19 Allergies Allergy/AdvReac Type Severity Reaction Status Date / Time sulfamethoxazole AdvReac Intermediate nausea, Verified 10/24/19 15:14 [From Bactrim] vomiting, dizziness trimethoprim [From Bactrim] AdvReac Intermediate nausea, Verified 10/24/19 15:14 vomiting, dizziness Review of Systems Constitutional Constitutional: Denies chills, Denies fatigue, Denies fever(s), Denies frequent falls, Denies lethargy and Denies weakness Eyes Eyes: Denies change in vision, Denies eye discharge, Denies irritation and Denies loss of vision ENT Ears, Nose, Mouth, and Throat: Denies change in voice, Denies dizziness, Denies neck pain, Denies sore throat and Denies throat swelling Cardiovascular Cardiovascular: Denies chest pain, Denies irregular heart rhythm, Denies lightheadedness, Denies palpitations, Denies dyspnea, Denies dyspnea on exertion and Denies orthopnea Respiratory Respiratory: Denies cough, Denies dyspnea, Denies dyspnea on exertion and Denies wheezing Gastrointestinal Gastrointestinal: Denies abdominal pain, Denies change in bowel habits, Denies diarrhea, Reports nausea and Reports vomiting Genitourinary Genitourinary: Denies hematuria, Denies flank pain, Denies urinary incontinence and Denies urinary urgency Musculoskeletal Musculoskeletal: Denies back pain, Denies muscle weakness, Denies neck pain, Denies numbness and Denies tingling Integumentary/Breasts Skin/Breast: Denies pruritus, Denies erythema, Denies rash and Denies wounds Neurologic Neurologic: Denies behavioral changes, Denies confusion, Denies dizziness, Denies frequent falls, Denies loss of vision, Denies numbness, Denies tingling and Denies weakness Psychiatric Psychiatric: Denies anxiety, Denies behavioral changes, Denies confusion, Denies depression, Denies homicidal ideation and Denies suicidal ideation Endocrine Endocrine: Denies fatigue, Denies flushing and Denies palpitations Hematologic/Lymphatic Hematologic/Lymphatic: Denies easy bruising Allergic/Immunologic Allergic/Immunologic: Denies urticaria, Denies throat swelling and Denies wheezing Patient History Surgical History S/P (Resolved) Social History Smoking Status: Never smoker Smoking Status: Never smoker alcohol intake frequency: 0-2 drinks per day Substance Use Type: does not use Exam Narrative Exam Narrative: GENERAL: [] year old patient appears stated age. Well-nourished, well-developed patient, in mild distress. HEAD: Atraumatic. Normocephalic. EYES: Pupils equal round and reactive. Extraocular motions intact. No scleral icterus. No injection or drainage. ENT: Nose without bleeding, purulent drainage. Throat without erythema, tonsillar hypertrophy or exudate. Airway patent. NECK: Trachea midline. Non tender CARDIOVASCULAR: Regular rate and rhythm without murmurs, gallops, or rubs. RESPIRATORY: Clear to auscultation. Breath sounds equal bilaterally. No wheezes, rales, or rhonchi. GASTROINTESTINAL: Abdomen soft, non-tender, nondistended. EXTREMITIES: No edema or joint tenderness. BACK: Nontender without deformity or crepitance. No flank tenderness. NEURO: AOx3. SKIN: No rash or erythema of visible areas Initial Vital Signs Initial Vital Signs: Vital Signs Temperature 98.6 F 10/24/19 19:57 Pulse Rate 85 10/24/19 19:57 Respiratory Rate 18 10/24/19 19:57 Blood Pressure 116/73 10/24/19 19:57 Pulse Oximetry 98 10/24/19 19:57 Course Course Course Narrative: Patient feeling much better after above-stated therapies Multiple etiologies considered including the possibility of medication reaction to her antibiotics. Patient is a very reassuring exam, feels better after fluids and nausea meds. Return precautions given and questions answered to her apparent satisfaction Orders Ordered: Discontinued Medications Sodium Chloride (Normal Saline 0.9%) 1,000 mls @ 1,000 mls/hr IV BOLUS ONE Stop: 10/24/19 20:57 Last Infusion: 10/24/19 22:14 Dose: 0 mls/hr Documented by: Admin: 10/24/19 21:08 Dose: 1,000 mls/hr Documented by: THOMAS Ondansetron HCl (Zofran) 4 mg IV NOW ONE Stop: 10/24/19 19:59 Last Admin: 10/24/19 21:08 Dose: 4 mg Documented by: THOMAS Ondansetron HCl (Zofran Odt Prepack) 1 bottle MISC SEEINSTR ONE Stop: 10/24/19 22:34 Vital Signs Vital signs: Vital Signs - 8 hr 10/24/19 22:12 Pulse Rate 73 Respiratory Rate 18 Blood Pressure [Left Arm] 99/63 Pulse Oximetry 98 MDM - Dizziness Lab Data Result diagrams: 10/24/19 20:28 10/24/19 20:28 Labs: Lab Results 10/24/19 10/24/19 10/24/19 Range/Units 20:04 20:28 20:28 WBC 9.7 (4.5-11.0) X10^3/uL RBC 4.91 (4.0-5.2) X10^6/uL Hgb 12.7 (12.0-16.0) g/dL Hct 37.7 (36-46) % MCV 76.8 L (80-100) fL MCH 25.8 L (26-34) PG MCHC 33.6 (30-36) % RDW 14.4 (11.6-14.8) % Plt Count 282 (150-400) X10^3/uL Neut % (Auto) 75.6 H (50-75) % Lymph % (Auto) 17.3 L (25-40) % [place] % (Auto) 4.8 (3-14) % Eos % (Auto) 1.4 L (2-4) % Baso % (Auto) 0.9 (0-2) % Neut # (Auto) 7400 H (1502-4162) /uL Lymph # (Auto) 1700 (6368-3616) /uL [place] # (Auto) 500 (0-900) /uL Eos # (Auto) 100 (0-450) /uL Baso # (Auto) 100 (0-100) /uL Sodium 137 (137-145) mmol/L Potassium 4.0 (3.4-5.1) mmol/L Chloride 106 (98-107) mmol/L Carbon Dioxide 20 L (22-32) mmol/L BUN 11 (7-17) mg/dL Creatinine 0.87 (0.52-1.04) mg/dL Estimated GFR > 60.0 (>60) mL/min BUN/Creatinine Ratio 12.6 (6-22) Glucose 101 H (70-100) mg/dL Calcium 9.6 (8.4-10.2) mg/dL Total Bilirubin 0.9 (0.2-1.3) mg/dL AST 27 (14-36) IU/L ALT 18 (<35) IU/L Alkaline Phosphatase 60 (38-126) U/L Total Protein 7.9 (6.3-8.2) g/dL Albumin 4.8 (3.5-5.0) g/dL Globulin 3.1 (1.7-4.1) g/dL Albumin/Globulin Ratio 1.5 (1.0-2.8) U Opiates 300ng/mL cut Negative (Negative) Ur Oxycodone Screen Negative (Negative) Urine Methadone Screen Negative (Negative) Ur Barbiturates Screen Negative (Negative) U Tricyclic Antidepress Negative (Negative) Ur Phencyclidine Scrn Negative (Negative) Ur Amphetamines Screen Negative (Negative) U Methamphetamines Scrn Negative (Negative) Ur MDMA Scrn (Ecstasy) Negative (Negative) U Benzodiazepines Scrn Negative (Negative) Urine Cocaine Screen Negative (Negative) U Marijuana (THC) Screen Negative (Negative) Point of Care Testing Test Results Negative Urine Dip Bedside Urine Glucose Negative Bedside Urine Bilirubin - Negative Bedside Urine Ketone +/- 5 Urine Specific [place] 1.015 Bedside Urine Occult Blood - Negative Bedside Urine pH 6.5 Bedside Urine Protein - Negative Bedside Urine Urobilinogen - Negative Bedside Urine Nitrite - Negative Bedside Urine Leukocytes - Negative Esterase Discharge Plan Departure Patient Disposition: Home Clinical Impression: Dizziness Vomiting Qualifiers: Vomiting type: unspecified Vomiting Intractability: non-intractable Nausea presence: with nausea Qualified Code(s): R11.2 - Nausea with vomiting, unspecified Medication reaction Qualifiers: Encounter type: initial encounter Qualified Code(s): T50.905A - Adverse effect of unspecified drugs, medicaments and biological substances, initial encounter Discharge Date/Time: 10/24/19 22:00 Instructions: DI for Vomiting -- Adult, DI for Dizziness-Nonvertigo Activity Restrictions/Additional Instructions: 1. Drink plenty of fluids with frequent small sips. 2. For the next 24 hours a clear liquid diet is advised. After that please employ a brat diet which would include bananas, rice, apples, toast. 3. It seems reasonable to stop taking the new antibiotics given to by her dragline operator helper, otherwise please take other medications as directed. 4. Please follow-up with your doctor in the next 1-2 days. Call the office for an appointment. 5. Please return to the emergency Department for any worsening or persistent symptoms, such as increasing pain or fever. 6. Prescription sent to [facility] in [place] Prescriptions: New ondansetron 4 mg tablet,disintegrating 4 mg PO TID-QID PRN (Reason: nausea and vomiting) Qty: 10 RF: 0 No Action ondansetron 4 mg tablet,disintegrating 4 mg PO TID-QID PRN (Reason: nausea and vomiting) Qty: 30 RF: 0 prenat.vits,zack,wps-tqqi-uvjkv [ Vitamin] tablet 1 tab PO DAILY RF: 0 fluticasone propionate 50 mcg/actuation spray,suspension 1 spray NASAL DAILY PRN (Reason: allergy symptoms) RF: 0 acetaminophen 325 mg Tablet 650 mg PO Q6HR PRN (Reason: As Needed For Fever/Mild Pain) Qty: 30 RF: 0 ibuprofen 600 mg Tablet 600 mg PO Q6HR PRN (Reason: As Needed For Fever/Mild Pain) Qty: 30 RF: 0 docusate sodium 250 mg Capsule 250 mg PO DAILY Qty: 30 RF: 0 Pdm-S-Qtmsbc Cream 1 applic topical PRN PRN (Reason: Tenderness) Qty: 15 RF: 0 ferrous gluconate 324 mg (38 mg iron) Tablet 324 mg PO DAILY Qty: 30 RF: 0 Referrals: Evie Collazo MD [Primary Care Provider] -
== END 2019-10-24 22:00 | disposition home or self-care (01) ==
PROVIDERS: Emergency Provider Emergency Medicine; PCP Family Medicine
DX: R11.2 Nausea with vomiting, unspecified (principal); T36.95XA Adverse effect of unspecified systemic antibiotic, initial encounter; R42 Dizziness and giddiness
CPT/HCPCS: 36415; 80053; 80305; 81003; 81025; 85025; 93005; 96361; 96374; 99284; J2405

== ENCOUNTER → 2020-01-25 10:15 | Outpatient (CLI) | payer OTHER, SELFPAY ==
[2020-01-25 11:22] LABS: Hemoglobin A1C% w Est Avg Glu 5.6 % (4.0-6.0)
[2020-01-25 11:24] LABS: Add Manual Diff / Slide Review NO; Basophils Absolute Auto 100 /uL (0-100); Basophils Percent Auto 1.3 % (0-2); Eosinophils Absolute Auto 100 /uL (0-450); Eosinophils Percent Auto 2.4 % (2-4); Hematocrit 37.7 % (36-46); Hemoglobin 12.3 g/dL (12.0-16.0); Lymphocytes Absolute Auto 2200 /uL (1100-4500); Lymphocytes Percent Auto 37.1 % (25-40); Mean Corpuscular HGB Conc 32.7 % (30-36); Mean Corpuscular Hemoglobin 25.8 PG (26-34); Mean Corpuscular Volume 78.7 fL (80-100); Monocytes Absolute Auto 300 /uL (0-900); Monocytes Percent Auto 5.5 % (3-14); Neutrophils Absolute Auto 3200 /uL (1500-7000); Neutrophils Percent Auto 53.7 % (50-75); Platelet Count 232 X10^3/uL (150-400); Red Blood Cell Count 4.79 X10^6/uL (4.0-5.2); Red Cell Distribution Width 14.5 % (11.6-14.8); White Blood Cell Count 5.9 X10^3/uL (4.5-11.0)
[2020-01-25 12:10] LABS: Free T3, Triiodothyronine Free 3.61 pg/mL (2.77-5.27)
[2020-01-25 12:24] LABS: Thyroid Stimulating Hormone 1.28 uIU/mL (0.47-4.68)
[2020-01-25 12:49] LABS: Free T4, Direct Thyroxine 1.08 ng/dL (0.78-2.19)
== END ==
PROVIDERS: PCP Family Medicine; Referring Provider Family Medicine; Visit Provider Family Medicine
DX: R53.83 Other fatigue (principal); Z83.3 Family history of diabetes mellitus
CPT/HCPCS: 36415; 83036; 84439; 84443; 84481; 85025

== ENCOUNTER → 2020-02-17 10:17 | Outpatient (CLI) | payer OTHER, SELFPAY | PROVIDERS: PCP Family Medicine; Visit Provider Physician Assistant | DX: R30.0 Dysuria (principal) | CPT/HCPCS: 87077; 87086; 87186 ==

== ENCOUNTER → 2020-02-17 15:14 | Outpatient (CLI) | payer OTHER, SELFPAY ==
[2020-02-17 15:37] LABS: Add Manual Diff / Slide Review NO; Basophils Absolute Auto 100 /uL (0-100); Basophils Percent Auto 1.1 % (0-2); Eosinophils Absolute Auto 100 /uL (0-450); Eosinophils Percent Auto 1.1 % (2-4); Hematocrit 36.1 % (36-46); Hemoglobin 12.1 g/dL (12.0-16.0); Lymphocytes Absolute Auto 2400 /uL (1100-4500); Lymphocytes Percent Auto 26.6 % (25-40); Mean Corpuscular HGB Conc 33.5 % (30-36); Mean Corpuscular Hemoglobin 26.5 PG (26-34); Mean Corpuscular Volume 79.2 fL (80-100); Monocytes Absolute Auto 600 /uL (0-900); Monocytes Percent Auto 6.2 % (3-14); Neutrophils Absolute Auto 5800 /uL (1500-7000); Platelet Count 242 X10^3/uL (150-400); Red Blood Cell Count 4.56 X10^6/uL (4.0-5.2); Red Cell Distribution Width 14.2 % (11.6-14.8); White Blood Cell Count 8.9 X10^3/uL (4.5-11.0)
--- NOTE | 2020-02-17 15:43 | DI.US.S_ITS ---
PROCEDURE: US RENAL COMPLETE INDICATIONS: hematuria TECHNIQUE: Real-time scanning was performed of the kidneys and bladder, with image documentation. COMPARISON: None. FINDINGS: Kidneys: Kidneys are normal in size. Right kidney measures 10.6 cm long; left kidney measures 11.0 cm long. Right renal cortical thickness is 1.3 cm; left renal cortical thickness is 1.8 cm. Renal cortical echotexture is normal. No hydronephrosis or nephrolithiasis. No suspicious solid mass lesions. Bladder: Pre-void bladder volume is 313 mL. Post-void residual is seven mL. Pre-void images demonstrate no intraluminal masses or stones. There is a moderate amount of mobile debris within the urine. On pre-void images, bilateral ureteral jets are noted with color Doppler interrogation. (Of note, ureteral jets may not be detectable in up to 25% of cases due to insufficient differences in specific gravity between ureteral and bladder urine). Miscellaneous: No free pelvic fluid. IMPRESSION: 1. Normal kidneys. 2. Debris containing urine. No discrete bladder lesion. Consider cystitis.. Dictated by: Andressa Navarro M.D. on 02/17/2020 at 17:56 Approved by: Andressa Navarro M.D. on 02/17/2020 at 18:03
--- NOTE | 2020-02-17 15:43 | DI.US.S_ITS ---
PROCEDURE: US PELVIC COMPLETE INDICATIONS: Hematuria TECHNIQUE: Real-time scanning was performed of the pelvic organs, with image documentation. Additional endovaginal scanning was necessary due to incomplete visualization of the adnexal and endometrial structures by transabdominal scanning. COMPARISON: None. FINDINGS: Transabdominal scanning: Limited scanning through the kidneys shows no hydronephrosis. No pathologic free abdominal or pelvic fluid. Endovaginal scanning: Uterus: Uterus is anteverted and normal in size at 7.2 x 3.7 x 5.3 cm. scar is visible. The endometrium measures six mm in combined thickness. Ovaries: The right ovary measures 3.3 x 2.2 x 2.2 cm and demonstrates a normal follicular echotexture and vascularity. The left ovary measures 3.3 x 2.6 x 2.5 cm and also contains a normal echotexture and vascular flow. Trace amount of fluid in the cul-de-sac. IMPRESSION: 1. Normal pelvic ultrasound. Dictated by: Andressa Navarro M.D. on 02/17/2020 at 18:03 Approved by: Andressa Navarro M.D. on 02/17/2020 at 18:05
[2020-02-17 15:51] LABS: Alanine Aminotransferase 30 IU/L (<35); Albumin 4.6 g/dL (3.5-5.0); Albumin Globulin Ratio 1.4 (1.0-2.8); Alkaline Phosphatase 56 U/L (38-126); Aspartate Aminotransferase 29 IU/L (14-36); BUN Creatinine Ratio 12.8 (6-22); Bilirubin Total 0.5 mg/dL (0.2-1.3); Blood Urea Nitrogen 10 mg/dL (7-17); Calcium 9.4 mg/dL (8.4-10.2); Carbon Dioxide 28 mmol/L (22-32); Chloride 105 mmol/L (98-107); Estimated Glomerular Filt Rate > 60.0 mL/min (>60); Globulin 3.3 g/dL (1.7-4.1); Glucose 95 mg/dL (70-100); HEMOLYSIS < 15 (0-50); Potassium 4.3 mmol/L (3.4-5.1); Sodium 140 mmol/L (137-145); Total Protein 7.9 g/dL (6.3-8.2)
[2020-02-17 16:08] LABS: HCG Quantitative /Beta subunit < 2.4 mIU/mL
== END ==
PROVIDERS: PCP Family Medicine; Referring Provider Physician Assistant; Visit Provider Physician Assistant
DX: R31.9 Hematuria, unspecified (principal); R30.0 Dysuria
CPT/HCPCS: 36415; 76770; 76856; 80053; 84702; 85025; 87077; 87086; 87186

== ENCOUNTER → 2020-06-14 10:10 | Outpatient (CLI) | payer OTHER, SELFPAY ==
[2020-06-14 13:39] LABS: HCG Quantitative /Beta subunit < 2.4 mIU/mL
== END ==
PROVIDERS: PCP Family Medicine; Referring Provider Family Medicine; Visit Provider Family Medicine
DX: N91.2 Amenorrhea, unspecified (principal)
CPT/HCPCS: 36415; 84702

== ENCOUNTER → 2020-06-19 09:25 | Outpatient (CLI) | payer OTHER, SELFPAY ==
[2020-06-19 11:18] LABS: HCG Quantitative /Beta subunit 4.1 mIU/mL
== END ==
PROVIDERS: PCP Family Medicine; Referring Provider Family Medicine; Visit Provider Family Medicine
DX: N91.2 Amenorrhea, unspecified (principal)
CPT/HCPCS: 36415; 84702

== ENCOUNTER → 2020-06-26 09:02 | Outpatient (CLI) | payer OTHER, SELFPAY ==
[2020-06-26 11:07] LABS: HCG Quantitative /Beta subunit < 2.4 mIU/mL
== END ==
PROVIDERS: PCP Family Medicine; Referring Provider Family Medicine; Visit Provider Family Medicine
DX: N91.2 Amenorrhea, unspecified (principal)
CPT/HCPCS: 36415; 84702

== ENCOUNTER → 2020-08-14 17:52 | Outpatient (CLI) | payer OTHER, SELFPAY ==
[2020-08-14 19:56] LABS: HCG Quantitative /Beta subunit 6.5 mIU/mL
== END ==
PROVIDERS: PCP Family Medicine; Referring Provider Family Medicine; Visit Provider Family Medicine
DX: N91.2 Amenorrhea, unspecified (principal)
CPT/HCPCS: 36415; 84702

== ENCOUNTER → 2020-08-17 08:03 | Outpatient (CLI) | payer OTHER, SELFPAY ==
[2020-08-17 09:55] LABS: HCG Quantitative /Beta subunit < 2.4 mIU/mL
== END ==
PROVIDERS: PCP Family Medicine; Referring Provider Family Medicine; Visit Provider Family Medicine
DX: Z34.90 Encounter for supervision of normal pregnancy, unspecified, unspecified trimester (principal)
CPT/HCPCS: 36415; 84702

== ENCOUNTER → 2020-09-18 10:02 | Outpatient (CLI) | payer OTHER, SELFPAY ==
[2020-09-18 11:31] LABS: HCG Quantitative /Beta subunit 4528.4 mIU/mL
== END ==
PROVIDERS: PCP Family Medicine; Referring Provider Family Medicine; Visit Provider Family Medicine
DX: Z32.01 Encounter for pregnancy test, result positive (principal)
CPT/HCPCS: 36415; 84702

== ENCOUNTER → 2020-09-21 06:56 | Outpatient (CLI) | payer OTHER, SELFPAY ==
[2020-09-21 08:03] LABS: HCG Quantitative /Beta subunit 12019 mIU/mL
== END ==
PROVIDERS: PCP Family Medicine; Referring Provider Family Medicine; Visit Provider Family Medicine
DX: Z34.90 Encounter for supervision of normal pregnancy, unspecified, unspecified trimester (principal)
CPT/HCPCS: 36415; 84702

== ENCOUNTER → 2020-10-15 09:16 | Outpatient (CLI) | payer OTHER, SELFPAY ==
[2020-10-15 10:36] LABS: Add Manual Diff / Slide Review NO; Basophils Absolute Auto 100 /uL (0-100); Basophils Percent Auto 0.8 % (0-2); Eosinophils Absolute Auto 100 /uL (0-450); Eosinophils Percent Auto 0.7 % (2-4); Hematocrit 36.8 % (36-46); Hemoglobin 12.5 g/dL (12.0-16.0); Lymphocytes Absolute Auto 1800 /uL (1100-4500); Lymphocytes Percent Auto 16.4 % (25-40); Mean Corpuscular Hemoglobin 27.3 PG (26-34); Mean Corpuscular Volume 80.2 fL (80-100); Monocytes Absolute Auto 500 /uL (0-900); Monocytes Percent Auto 4.8 % (3-14); Neutrophils Absolute Auto 8300 /uL (1500-7000); Neutrophils Percent Auto 77.3 % (50-75); Platelet Count 257 X10^3/uL (150-400); Red Blood Cell Count 4.59 X10^6/uL (4.0-5.2); Red Cell Distribution Width 12.8 % (11.6-14.8); White Blood Cell Count 10.8 X10^3/uL (4.5-11.0)
[2020-10-15 16:22] LABS: HIV 1 & 2 Ab/Ag 4th Gen Combo NEGATIVE (NEGATIVE); Hep C Virus Ab w/Reflex Quant NEGATIVE s/c (NEGATIVE); Hepatitis B Surface Antigen NEGATIVE s/c (NEGATIVE); Rubella Antibody IgG 12.4 IU/mL (>15)
[2020-10-16 12:53] LABS: RPR Screen Non Reactive (Non Reactive); Varicella IgG Antibody 2371 index (Immune >165)
== END ==
PROVIDERS: PCP Family Medicine; Referring Provider Family Medicine; Visit Provider Family Medicine
DX: Z34.81 Encounter for supervision of other normal pregnancy, first trimester (principal)
CPT/HCPCS: 36415; 80055; 86787; 86803; 86850; 86900; 86901; 87389

== ENCOUNTER → 2020-10-25 09:36 | Outpatient (CLI) | payer OTHER, SELFPAY ==
[2020-10-25 11:51] LABS: Appearance Urine UA CLEAR; Bilirubin Urine UA NEGATIVE (NEGATIVE); Color Urine UA YELLOW; Glucose Urine UA NEGATIVE (Negative); Ketones Urine UA NEGATIVE (NEGATIVE); Leukocyte Esterase Urine UA NEGATIVE (NEGATIVE); Nitrite Urine UA NEGATIVE (Negative); Occult Blood Urine UA NEGATIVE (Negative); Protein Urine UA NEGATIVE (Negative); Urobilinogen Urine UA 0.2 E.U./dL (0.2)
[2020-10-25 11:52] LABS: pH Urine UA 7.5 (4.5-8.0)
== END ==
PROVIDERS: PCP Family Medicine; Referring Provider Family Medicine; Visit Provider Family Medicine
DX: Z34.81 Encounter for supervision of other normal pregnancy, first trimester (principal); Z3A.00 Weeks of gestation of pregnancy not specified
CPT/HCPCS: 36415; 81003; 81420; 87086

== ENCOUNTER → 2020-12-25 10:23 | Outpatient (CLI) | payer OTHER, SELFPAY ==
--- NOTE | 2020-12-25 10:23 | DI.US.S_ITS ---
PROCEDURE: US OB >= 14 WEEKS FETUS INDICATIONS: ANATOMY SCREENING OUTSIDE/PRIOR DATING DATA: Last menstrual period (LMP): 08/15/20. LMP-based estimated date of delivery (CHAD): 05/22/21 . First dating scan (date and location): 12/25/20 . Estimated date of delivery (CHAD) from first dating scan: 05/19/21 . TECHNIQUE: Real-time scanning was performed of the fetus, with image documentation and biometric measurements. Endovaginal scanning: Not needed COMPARISON: [facility], OB >= 14 WEEKS FETUS, 06/21/2018, 13:11. FINDINGS: General: A single living intrauterine gestation is present. Presentation: Vertex. Placenta: Placental position is posterior , without previa. Amniotic fluid index: 15.9 cm, normal range is 5-24 cm. heart rate: 132 beats per minute. Maternal cervical canal: 3.2 cm long. Normal lower limit is 2.5 cm. biometrics: Biparietal diameter: 4.5 cm, 19 weeks 4 days Head circumference: 16.2 cm, 19 weeks 0 days Abdominal circumference: 13.8 cm, 19 weeks 2 days Femur length: 3.0 cm, 19 weeks 2 days Estimated gestational age from initial scan: 18 weeks 6 days Composite gestational age from present scan: 19 weeks 2 days Estimated weight and percentile: 281 g, 68th percentile Measurement variability for biometric dating: +/- 7 days from 14 weeks to 15 weeks 6 days gestation, +/- 10 days from 16 weeks to 21 weeks 6 days gestation, +/- 2 weeks from 22 weeks to 27 weeks 6 days gestation, +/- 3 weeks for 28 weeks gestation or later. weight reference: 4500 g or EFW >90/95% is considered macrosomia or large for gestational age. EFW <10% is small for gestational age. EFW 5% or less is considered intra-uterine growth restriction. Anatomic survey: Neuro: Ventricles are non-dilated at less than 10 mm. Cisterna magna is normal at 3-11 mm. Cerebellum is normal in size and morphology. Nuchal skin fold: Normal at less than 6 mm between 14-21 weeks gestational age. Face: Nose and lips, facial profile are normal. Spine: No evidence for spina bifida. Heart: 4-chambered heart is present, with normal ventricular outflow tracts. Diaphragm: Diaphragm is intact. Stomach: Left-sided stomach is present. Kidneys: No hydronephrosis. Normal is less than 5 mm in 2nd trimester, less than 7 mm in 3rd trimester. Cord: 3-vessel cord has orthotopic insertion. Bladder: Normal in size. Extremities: All 4 extremities identified. IMPRESSION: Appropriate interval growth, no anomaly seen. The delivery date is projected to be centered on 05/19/21. Dictated by: Mu Joyner M.D. on 12/25/2020 at 12:51 Approved by: Mu Joyner M.D. on 12/25/2020 at 12:54
== END ==
PROVIDERS: PCP Family Medicine; Referring Provider Family Medicine; Visit Provider Family Medicine
DX: Z34.92 Encounter for supervision of normal pregnancy, unspecified, second trimester (principal); Z3A.19 19 weeks gestation of pregnancy
CPT/HCPCS: 76811

== ENCOUNTER → 2021-03-04 07:44 | Outpatient (CLI) | payer OTHER, SELFPAY ==
[2021-03-04 09:43] LABS: Add Manual Diff / Slide Review NO; Basophils Absolute Auto 100 /uL (0-100); Basophils Percent Auto 0.8 % (0-2); Eosinophils Absolute Auto 200 /uL (0-450); Eosinophils Percent Auto 1.5 % (2-4); Hematocrit 30.2 % (36-46); Hemoglobin 9.9 g/dL (12.0-16.0); Lymphocytes Absolute Auto 2000 /uL (1100-4500); Lymphocytes Percent Auto 16.8 % (25-40); Mean Corpuscular HGB Conc 32.9 % (30-36); Mean Corpuscular Hemoglobin 26.1 PG (26-34); Mean Corpuscular Volume 79.3 fL (80-100); Monocytes Absolute Auto 500 /uL (0-900); Monocytes Percent Auto 4.5 % (3-14); Neutrophils Absolute Auto 9000 /uL (1500-7000); Neutrophils Percent Auto 76.4 % (50-75); Platelet Count 219 X10^3/uL (150-400); Red Blood Cell Count 3.81 X10^6/uL (4.0-5.2); Red Cell Distribution Width 12.6 % (11.6-14.8); White Blood Cell Count 11.8 X10^3/uL (4.5-11.0)
[2021-03-04 10:27] LABS: GTT (PREG) 1 Hour PP 50gm Dose 111 mg/dL (76-139)
== END ==
PROVIDERS: PCP Family Medicine; Referring Provider Family Medicine; Visit Provider Family Medicine
DX: Z34.90 Encounter for supervision of normal pregnancy, unspecified, unspecified trimester (principal)
CPT/HCPCS: 36415; 82950; 85025

== ENCOUNTER → 2021-03-15 12:59 | Outpatient (CLI) | payer OTHER, SELFPAY ==
--- NOTE | 2021-03-15 12:59 | DI.US.S_ITS ---
PROCEDURE: US OB LIMITED INDICATIONS: LARGE FOR DATES OUTSIDE/PRIOR DATING DATA: Last menstrual period (LMP): August 15, 2020 LMP-based estimated date of delivery (CHAD): May 12, 2021 . First dating scan (date and location): [facility], December 25, 2020 . Estimated date of delivery (CHAD) from first dating scan: May 19, 2021 . TECHNIQUE: Real-time scanning was performed of the fetus, with image documentation and biometric measurements. COMPARISON: None. FINDINGS: General: A single living intrauterine gestation is present. Presentation: Cephalic. Placenta: Placental position is posterior , without previa. Amniotic fluid index: 15.9 cm. heart rate: 144 beats per minute. Maternal cervical canal: Not well visualized. biometrics: Biparietal diameter: 8.2 Head circumference: 29.5 Abdominal circumference: 28.5 Femur length: 5.6 Estimated gestational age from initial scan: not applicable. Composite gestational age from present scan: 31 weeks, 6 days Estimated weight and percentile: 1816 g +/-269 g . Other: Not applicable. IMPRESSION: Single live intrauterine gestation as detailed above. Dictated by: Karl Zurita M.D. on 03/15/2021 at 15:04 Approved by: Karl Zurita M.D. on 03/15/2021 at 15:10
== END ==
PROVIDERS: PCP Family Medicine; Referring Provider Family Medicine; Visit Provider Family Medicine
DX: Z36.88 Encounter for antenatal screening for fetal macrosomia (principal); Z3A.31 31 weeks gestation of pregnancy
CPT/HCPCS: 76815

== ENCOUNTER → 2021-04-02 12:06 | Outpatient (CLI) | payer OTHER, SELFPAY ==
--- NOTE | 2021-04-02 12:07 | DI.US.S_ITS ---
PROCEDURE: US ABDOMEN LIMITED INDICATIONS: RUQ PAIN TECHNIQUE: Real-time focused scanning was performed of the abdomen, with image documentation. COMPARISON: None. FINDINGS: The liver is normal in size and demonstrates no focal lesions. No findings of gallstones or sludge are seen. The gallbladder wall is not thickened, measuring 3 mm or less. No specific pericholecystic fluid is seen. The sonographic [place] sign is negative. There is no biliary dilatation, the common bile duct measures 4 mm. No significant pancreatic abnormality is seen on these images. IMPRESSION: The gallbladder demonstrates a normal sonographic appearance. No biliary dilatation is seen. Dictated by: Cuate Reagan M.D. on 04/02/2021 at 11:57 Approved by: Cuate Reagan M.D. on 04/02/2021 at 11:58
== END ==
PROVIDERS: PCP Family Medicine; Referring Provider Family Medicine; Visit Provider Family Medicine
DX: R10.11 Right upper quadrant pain (principal)
CPT/HCPCS: 76705

== ENCOUNTER → 2021-04-30 08:57 | Outpatient (CLI) | payer OTHER, SELFPAY ==
[2021-05-01 18:43] LABS: Strep Grp B PCR NEG for Grp B Strep
== END ==
PROVIDERS: PCP Family Medicine; Referring Provider Family Medicine; Visit Provider Family Medicine
DX: Z3A.36 36 weeks gestation of pregnancy (principal)
CPT/HCPCS: 87653

== ENCOUNTER 2021-05-17 05:49 | Inpatient (IN) | payer OTHER, SELFPAY ==
[2021-05-17] MEDS: LACTATED RINGERS 1,000 ML 100 ML IV ×5 (06:30→18:47)
[2021-05-17 07:09] LABS: Add Manual Diff / Slide Review NO; Basophils Absolute Auto 100 /uL (0-100); Basophils Percent Auto 0.8 % (0-2); Eosinophils Absolute Auto 100 /uL (0-450); Eosinophils Percent Auto 1.4 % (2-4); Hematocrit 31.3 % (36-46); Hemoglobin 10.3 g/dL (12.0-16.0); Lymphocytes Absolute Auto 2400 /uL (1100-4500); Lymphocytes Percent Auto 25.6 % (25-40); Mean Corpuscular HGB Conc 33.1 % (30-36); Mean Corpuscular Hemoglobin 23.8 PG (26-34); Mean Corpuscular Volume 71.9 fL (80-100); Monocytes Absolute Auto 500 /uL (0-900); Monocytes Percent Auto 5.4 % (3-14); Neutrophils Absolute Auto 6400 /uL (1500-7000); Neutrophils Percent Auto 66.8 % (50-75); Platelet Count 236 X10^3/uL (150-400); Red Blood Cell Count 4.35 X10^6/uL (4.0-5.2); White Blood Cell Count 9.5 X10^3/uL (4.5-11.0)
--- NOTE | 2021-05-17 07:25 | SUR.OPER ---
Supine on Padded OR bed, head on pillow, safety belt at thigh, arms secured on padded arm boards at <90 degrees abduction. Bump under right buttock. Legs uncrossed with pillow under knees, gel pad to heels, tape over blanket to lower legs.
[2021-05-17 07:38] LABS: COVID19 -Nasal RAPID Negative (Negative)
--- NOTE | 2021-05-17 07:38 | PM.PREOP ---
Pre-operative Note COVID-19 COVID-19 status: Negative Result date/Date tested (Pos, Neg/Pending): 05/17/21 Interval Note History & Physical reviewed/Exam performed by Physician: Yes Changes to H&P: No
--- NOTE | 2021-05-17 07:39 | P.HPOB_ITS ---
OB HPI Date/Time Date of admission: 05/17/21 Date Patient Seen: 05/17/21 Time Patient Seen: 07:39 History of Present Condition Chief complaint: Repeat CHAD Calculator Estimated Delivery Date Method Current WG Current Estimate 05/23/21 Manual 39w 1d Final CHAD - WILVER Other Estimates 05/22/21 LMP (Certain) 39w 2d 05/23/21 Ultrasound #1 39w 1d Estimated Gestational Age (weeks): 39w1d : 2 Para: 1 Narrative: 25yo at 39w1d here for scheduled repeat . She is feeling her baby move regularly. No LOF or vaginal bleeding. She is feeling intermittent cramping. The pts has been complicated by bipolar disorder and anxiety, stable on Lamotrigine. There have otherwise been no complications in her . care: good care, initiated at week # (8) and pounds weight gain (46) Dating criteria OB: LMP confirmed by 1st trimester US Ultrasounds: normal 1st trimester US and normal mid trimester US Obstetrical complications: none Medical complications OB: psychiatric (bipolar and anxiety on lamotrigine) Indications Operative indications ( section): previous uterine surgery Preadmission Labs Last OB Lab Results: Blood Type AB Positive 10/15/20 09:32 10/15/20 Antibody Screen Negative 10/15/20 09:32 10/15/20 Hematocrit 31.3 % (36-46) L 05/17/21 06:25 05/17/21 Hemoglobin 10.3 g/dL (12.0-16.0) L 05/17/21 06:25 05/17/21 Hepatitis B Surface Antigen Negative s/c (NEGATIVE) 10/15/20 09:32 10/15/20 Hepatitis C Antibody Negative s/c (NEGATIVE) 10/15/20 09:32 10/15/20 Rubella Antibody 12.4 IU/mL (>15) L 10/15/20 09:32 10/15/20 Varicella-Zoster IgG Antibody 2371 index (Immune >165) 10/15/20 09:32 10/15/20 Glucose 1 Hour 111 mg/dL (76-139) 03/04/21 08:02 03/04/21 Group B Streptococcus (PCR) Neg for grp b strep 04/30/21 08:57 04/30/21 -: Urine: negative Genetic Screens: Quad screen: Normal External Labs -: Urine: negative Prior (ies) Past Pregnancies Del. Date GA/Weeks Labor Lgth Wt Sex Route Outcome Anesthesia Place Delv Breastfeed Preg Comp Name 11/04/18 39.3 16 8 lb 1.8 oz Male live - full term epidural IH Dr Collazo 6 months : went back to work none Samir Delivery Date: 11/04/18 Last Updated by: Rhiannon Grimm, RReyes. *Primary C/S for FTD (after forceps applied by Dr Tan). *Post- issues : Counselling X 7 months then on Rx Lamotrigine. Evaluation Evaluation Baseline heart rate: 120 Variability: Moderate (11-25) monitor accelerations: Present Monitor Decelerations: Absent Category of Tracing: Reactive PFSH Medical History (Updated 10/08/20 @ 13:52 by Rhiannon Grimm RN) Asthma Bipolar disorder Dermatitis H/O transfusion of whole blood (~10/2018) Pneumonia (~2014) Right hip pain (~2018) Seasonal allergic rhinitis Surgical History (Updated 12/11/20 @ 08:47 by Evie Collazo MD) S/P (~11/04/18) [place] teeth extracted (~06/2019) Family History (Updated 10/08/20 @ 13:00 by Rhiannon Grimm, [place]) Mother Asthma Father Diabetes mellitus Type 1 diabetes Cardiac anomaly Neuropathy Grandmother No problems noted. Grandfather History of being hospitalized Grandmother Unknown whether patient has any health problems Grandfather Unknown whether patient has any health problems Family estrangement Family/Other Hypertension CVA (cerebral vascular accident) Family/Other CVA (cerebral vascular accident) Brother No problems noted. Sister Eczema Social History marital status: number of children: 1 household members: spouse and children lives independently: Yes pets and animals: Yes (X 2 dogs) education level: college (some College) occupational status: employed current occupational exposures/hazards: Yes (Follows close guidlines re Covid) Previous occupational history: Vocational Rehab special melissa needs: No Smoking Status: Never smoker second hand exposure: No alcohol intake: never substance use type: does not use Meds Home Medications and Allergies Home Medications Medication Instructions Recorded Confirmed Type fluticasone propionate 50 1 spray NASAL DAILY PRN 03/22/18 09/18/20 History mcg/actuation nasal spray,suspension prenat.vits,zack,eqy-twtj-hrohz 1 tab PO DAILY 10/08/20 10/08/20 History lamotrigine 100 mg tablet See Rx Instructions .ROUTE 05/13/21 Rx .COMPLEX #60 tab Allergies Allergy/AdvReac Type Severity Reaction Status Date / Time minocycline Allergy Intermediate Vomiting Verified 10/08/20 12:12 sulfamethoxazole AdvReac Intermediate nausea, Verified 10/08/20 12:12 [From Bactrim] vomiting, dizziness trimethoprim [From Bactrim] AdvReac Intermediate nausea, Verified 10/08/20 12:12 vomiting, dizziness OB Exam Narrative Exam Narrative: Gen: NAD, sitting comfortably in bed, appears well CV: RRR, no murmurs Resp: clear to auscultation bilaterally Abd: soft, nontender, gravid Ext: trace edema Objective Labs Result Diagrams: 05/17/21 06:25 Labs: Laboratory Results - last 24 hr 05/17/21 05/17/21 06:25 06:25 WBC 9.5 RBC 4.35 Hgb 10.3 L Hct 31.3 L MCV 71.9 L MCH 23.8 L MCHC 33.1 RDW 17.0 H Plt Count 236 Neut % (Auto) 66.8 Lymph % (Auto) 25.6 [place] % (Auto) 5.4 Eos % (Auto) 1.4 L Baso % (Auto) 0.8 Neut # (Auto) 6400 Lymph # (Auto) 2400 [place] # (Auto) 500 Eos # (Auto) 100 Baso # (Auto) 100 SARS-CoV-2 (PCR) Negative Assessment and Plan Assessment and Plan Assessment and Plan narrative: 25yo at 39w1d here for scheduled repeat . Rh positive, GBS negative. Pt consented for surgery. Discussed risks not limited to blee ding/hemorrhage, infection, injury to other organs such as the bowel/bladder, injury to fetus. The pt expressed understanding and consent was signed and placed in chart. She is agreeable with blood transfusion if medically necessary. 2g Ancef to be given prior to surgery. SCDs will be applied, and feliciano inserted.
[2021-05-17 07:40] VITALS: BP 117/80
[2021-05-17] MEDS: CEFAZOLIN 2 GM/20 ML SYRINGE IV (07:50)
--- NOTE | 2021-05-17 08:24 | SUR.OPER ---
Viable male delivered via section at 08:19. Cord blood vials x2 and placenta sent with L&D RN.
[2021-05-17 09:02] VITALS: BP 112/59; PULSE 77; RESP 14; TEMP 36.4; O2SAT 96
[2021-05-17] MEDS: ONDANSETRON 4 MG/2 ML INJ IV ×3 (09:06→18:47)
[2021-05-17 09:07] VITALS: BP 108/59; PULSE 72; RESP 16; O2SAT 95
[2021-05-17 09:12] VITALS: BP 105/61; PULSE 74; RESP 14; O2SAT 97
[2021-05-17 09:17] VITALS: BP 107/64; PULSE 82; RESP 15; TEMP 36.7; O2SAT 97
--- NOTE | 2021-05-17 09:18 | P.OP_ITS ---
Operative Date/Time/Diagnoses Date of procedure: 05/17/21 Time of procedure: 07:45 Pre-op diagnosis: 39w1d gestation Bipolar disorder Anxiety GBS negative Rh positive Hx of prior Post-op diagnosis: same Procedure & Clinicians Procedure: Repeat Same procedure as scheduled: Yes Indications: Hx of prior 39w1d gestation Surgeon: Evie Collazo Click Yes if Unassisted: No Manager Web: Eufemia Heath Anesthesia Type: Spinal Operative Notes Findings: Normal uterus, ovaries, and tubes Closure Type: primary Intraoperative meds administered: Duramorph and Pitocin Applied: Catheter Estimated Blood Loss (mL): 450 Blood products transfused: none Procedure in detail: OPERATIVE COURSE: The patient was taken to the operating room where spinal anesthesia was placed. She was then prepared and draped in the normal sterile fashion in the dorsal supine position with a leftward tilt. Anesthesia was tested and found to be adequate. A Pfannensteil skin incision was then made with the scalpel and carried through to the underlying layer of fascia with the scalpel. The fascia was incised in the midline and the incision extended laterally with the Montero scissors. The superior aspect of the fascial incision was then grasped with Vineet clamps, elevated with the help of the surgical services assistant, and the underlying rectus muscles dissected off bluntly and sharply where needed. Attention was then turned to the inferior aspect of the incision which, in a similar fashion, was grasped, tented up with Vineet clamps, and the rectus muscle dissected off bluntly and sharply with Montero scissors. The rectus muscles were then in the midline, and the peritoneum was identified and entered bluntly. The peritoneal incision was then extended with good visualization of the bladder. Retraction was provided by the surgical services assistant. The bladder blade was then inserted and the vesicouterine peritoneum identified, grasped with pick-ups and entered sharply with the Metzenbaum scissors. The incision was then extended laterally and the bladder flap created digitally. The bladder blade was then reinserted and the lower uterine segment incised in a transverse fashion with the scalpel, with the surgical services assistant providing suction. The uterine incision was then extended superolaterally by pulling superolaterally on both sides. Membranes were ruptured and fluid was clear. The bladder blade was removed the infant's head was flexed out of OA position and delivered atraumatically, with fundal pressure by the surgical services assistant. The nose and mouth were suctioned with bulb suction and the cord was clamped and cut. The was handed off to the waiting nursing staff. Cord blood was collected for Rh status. The placenta was then delivered with gentle cord traction. The uterus was then cleared of all clots and debris. The uterine incision was repaired with O Vicryl in a running, locked fashion. A second layer of the same suture was used to obtain excellent hemostasis. The gutters were cleared of all clots. Hysterotomy was investigated and found to be hemostatic. The peritoneum was closed with 3-O Vicryl. The fascia was reapproximated with O-Vicryl in a running fashion. The subcutaneous tissue was reapproximated with 3-O Vicryl. The skin was closed with 4-O Vicryl. The surgical services assistant helped with retraction during closures. ROM APPEARANCE: Clear BABY A DELIVERY TIME: 8:19 SPONGE AND NEEDLE COUNTS: Correct x3. DRESSING: Aquacel ANTICOAGULATION: SCDs applied prior to Surgery Preop antibiotics given (see MAR). The patient was taken to recovery room having tolerated procedure well. Complications: none Baby 1: Infant Gender: Male Presentation: vertex Position: Left Occiput Anterior Placental Delivery Description: Spontaneous Cord Vessel Description: 3 Vessels score (1 min): 9 score (5 min): 9 weight: 9 lb 8.525 oz Post-operative Condition: stable Disposition: PACU Aftercare: routine postop
--- NOTE | 2021-05-17 09:26 | SUR.PHASEI ---
Pt to PACU at 0902 after duramorph spinal alert and oriented. Medicated with zofran after fundal massage which made her feel slightly queasy. No nausea, no omitting, denied pain. Transferred to Center in bed by this Rn. SBAR report to Swathi MCCORMACK with fundal eval and dressing check at bedside. and baby at bedside.
[2021-05-17] MEDS: KETOROLAC 30 MG/ML VIAL IV ×3 (09:59→23:13)
[2021-05-17] MEDS: OXYCODONE IR 5 MG TABLET PO ×2 (11:57→15:58)
[2021-05-17] MEDS: ACETAMINOPHEN 325 MG TABLET 650 MG PO ×2 (12:29→21:31)
[2021-05-17] MEDS: METOCLOPRAMIDE 10 MG/2 ML INJ IV (17:19)
[2021-05-17] MEDS: lamoTRIgine 100 MG TABLET 200 MG PO (21:30)
[2021-05-18] MEDS: ACETAMINOPHEN 325 MG TABLET 650 MG PO ×2 (05:50→12:41)
[2021-05-18] MEDS: ONDANSETRON 4 MG/2 ML INJ IV (05:50)
[2021-05-18] MEDS: OXYCODONE IR 5 MG TABLET PO ×2 (05:50→10:33)
[2021-05-18 06:24] LABS: Add Manual Diff / Slide Review NO; Basophils Absolute Auto 100 /uL (0-100); Basophils Percent Auto 0.6 % (0-2); Eosinophils Absolute Auto 100 /uL (0-450); Eosinophils Percent Auto 1.3 % (2-4); Hematocrit 24.4 % (36-46); Hemoglobin 8.2 g/dL (12.0-16.0); Lymphocytes Absolute Auto 2000 /uL (1100-4500); Mean Corpuscular HGB Conc 33.5 % (30-36); Mean Corpuscular Hemoglobin 24.2 PG (26-34); Mean Corpuscular Volume 72.3 fL (80-100); Monocytes Absolute Auto 600 /uL (0-900); Neutrophils Absolute Auto 7200 /uL (1500-7000); Neutrophils Percent Auto 72.1 % (50-75); Platelet Count 178 X10^3/uL (150-400); Red Blood Cell Count 3.38 X10^6/uL (4.0-5.2); Red Cell Distribution Width 17.3 % (11.6-14.8)
[2021-05-18] MEDS: DOCUSATE 100 MG CAPSULE 200 MG PO (08:25)
[2021-05-18] MEDS: IBUPROFEN 600 MG TABLET PO ×2 (08:25→14:11)
[2021-05-18 11:12] VITALS: BP 107/64; PULSE 82; RESP 15; TEMP 36.7
[2021-05-18] MEDS: MEASLES,MUMPS,RUBELLA VACC/PF 0.5 ML VIAL SUBCUT (16:58)
--- NOTE | 2021-05-18 16:58 | P.DS_ITS ---
Discharge Providers Provider Date of admission: 05/17/21 05:49 Discharge Date: 05/20/21 Primary care physician: Evie Collazo MD Consults: 05/17/21 09:48 Consult to [employer]ue And [employer] Stitcher Routine Comment: Discharge provider: Evie Collazo MD Summary Hospital Course Date Patient Seen: 05/18/21 Diagnoses: 39w1d gestation Bipolar disorder Anxiety GBS negative Rh positive Repeat Hospital Course: The pt presented for scheduled repeat . This surgery was without complications. She delivered a viable baby boy with Apgars 9/9. , there were no complications. At the time of discharge she was voiding, ambulating, and passing flatus without difficulty. Her lochia was decreasing appropriately. Her pain was adequately controlled. She was breast-feeding with good latch. She will follow-up in 1 week for incision check. She is undecided regarding contraception. Peripartum Data Delivery Method: Section Procedures: Repeat complications: none 1: Gender: Male Disposition of : home Discharge Diagnosis (1) S/P : Status: Acute Problem Details: Primary C/S for FTD (2) Bipolar disorder: Status: Acute (3) Anxiety: Status: Acute Status at Discharge Cognitive/behavioral status at discharge: oriented Functional status at discharge: independent ambulation Overall status at discharge: patient is progressing back to baseline Time Spent with Patient Time attestation: Total time spent providing and/or coordinating discharge services: Objective Labs Result Diagrams: 05/18/21 06:05 Labs: Laboratory Results - last 24 hr 05/18/21 06:05 WBC 10.0 RBC 3.38 L Hgb 8.2 L Hct 24.4 L MCV 72.3 L MCH 24.2 L MCHC 33.5 RDW 17.3 H Plt Count 178 Neut % (Auto) 72.1 Lymph % (Auto) 20.0 L [place] % (Auto) 6.0 Eos % (Auto) 1.3 L Baso % (Auto) 0.6 Neut # (Auto) 7200 H Lymph # (Auto) 2000 [place] # (Auto) 600 Eos # (Auto) 100 Baso # (Auto) 100 Exam Vital Signs (past 8 hours): - 05/18/21 11:12 Temperature 98.0 F Pulse Rate 82 Respiratory Rate 15 Blood Pressure 107/64 Oxygen Delivery Method Room Air Narrative Exam Narrative: Gen: NAD, sitting comfortably in bed, appears well CV: RRR, no murmurs Resp: clear to auscultation bilaterally Abd: soft, appropriately tender, fundus firm and below the umbilicus, nondistended, dressing c/d/i Ext: no edema Discharge Plan Discharge Plan Patient Disposition: Home Discharge orders & Medications Prescriptions: New acetaminophen 325 mg Tablet 650 mg PO Q6H PRN (Reason: Fever/Mild Pain (1-3)) Qty: 30 0RF docusate sodium 100 mg Capsule 200 mg PO DAILY Qty: 30 0RF ibuprofen 600 mg Tablet 600 mg PO Q6H PRN (Reason: Fever/Mild Pain (1-3)) Qty: 30 0RF ondansetron 4 mg Tablet,Disintegrating 4 mg PO Q4HR PRN (Reason: Nausea And Vomiting) Qty: 30 0RF oxycodone 5 mg Tablet 5 mg PO Q4H PRN (Reason: Pain, Moderate (4-6)) Qty: 30 0RF Continued lamotrigine 100 mg tablet See Rx Instructions .ROUTE .COMPLEX Qty: 60 1RF Dose Instruction: TAKE 1 TABLET(100 MG) BY MOUTH EVERY NIGHT FOR 1 WEEK THEN TAKE 2 TABLETS BY MOUTH EVERY NIGHT Rx Instructions: TAKE 1 TABLET(100 MG) BY MOUTH EVERY NIGHT FOR 1 WEEK THEN TAKE 2 TABLETS BY MOUTH EVERY NIGHT prenat.vits,zack,adm-[id number] Tablet 1 tab PO DAILY 0RF fluticasone propionate 50 mcg/actuation spray,suspension 1 spray NASAL DAILY PRN (Reason: allergy symptoms) 0RF Follow up/Referrals: Evie Collazo MD [Primary Care Provider] - 05/24/21 Diet/Activity/Treatments Diet: Diet as Tolerated and Regular Skin/Wound/Dressing Care Report to your healthcare provider any signs of infection, such as:: chills, fever, increased pain and unusual drainage Visit Report/Discharge Packet Instructions: DI for Stand Alone Forms: Discharge: Care Visit Report Forms: Patient Portal/API, Stroke Signs & Symptoms Discharge Data Primary Care Provider: Evie Collazo Discharges patient from system. Discharge Date/Time: 05/18/21 17:24
== END 2021-05-18 17:24 | disposition home or self-care (01) | DRG 788 ==
PROVIDERS: Admitting Provider Family Medicine; PCP Family Medicine; Referring Provider Family Medicine; Visit Provider Family Medicine
PROC: 10D00Z1 Extraction of Products of Conception, Low, Open Approach (ICD-10-PCS; CPT 59514; principal; 2021-05-17 07:45)
DX: O34.211 Maternal care for low transverse scar from previous cesarean delivery (principal); Z3A.39 39 weeks gestation of pregnancy; Z37.0 Single live birth; Z20.822 Contact with and (suspected) exposure to COVID-19; O99.344 Other mental disorders complicating childbirth; F41.9 Anxiety disorder, unspecified; F31.9 Bipolar disorder, unspecified
CPT/HCPCS: 36415; 59050; 59510; 59514; 85025; 86850; 86900; 86901; 87635; C9803; J0690; J1885; J2274; J2405; J2590; J2765

== ENCOUNTER → 2021-05-23 12:30 | Outpatient (CLI) | payer OTHER, SELFPAY ==
[2021-05-23 13:16] LABS: Bilirubin Urine UA NEGATIVE (NEGATIVE); Color Urine UA YELLOW; Glucose Urine UA NEGATIVE (Negative); Ketones Urine UA NEGATIVE (NEGATIVE); Leukocyte Esterase Urine UA 2+ (NEGATIVE); Nitrite Urine UA NEGATIVE (Negative); Occult Blood Urine UA 3+ (Negative); Protein Urine UA NEGATIVE (Negative); Urobilinogen Urine UA 0.2 E.U./dL (0.2)
[2021-05-23 13:18] LABS: Appearance Urine UA Slightly Cloudy; pH Urine UA 6.5 (4.5-8.0)
[2021-05-23 13:29] LABS: Amorphous Sediment Urine 1+; RBC Urine 10-30/HPF (0-5/HPF); Renal Epithelial Cells Urine 0-1/HPF (0-1/HPF); Squamous Epithelial Cell Urine 1-5 /HPF (0-5/HPF); WBC Urine 5-10/HPF (0-5/HPF)
[2021-05-23 13:30] LABS: Bacteria Urine Occasional (0-1); Culture Indicated Urine Specimen Cultured
== END ==
PROVIDERS: PCP Family Medicine; Referring Provider Family Medicine; Visit Provider Family Medicine
DX: R30.0 Dysuria (principal)
CPT/HCPCS: 81001; 87086

== ENCOUNTER → 2021-07-19 11:10 | Outpatient (CLI) | payer OTHER, SELFPAY | PROVIDERS: PCP Family Medicine; Visit Provider Family Medicine | DX: R30.0 Dysuria (principal) | CPT/HCPCS: 87086 ==

== ENCOUNTER → 2021-07-30 12:07 | Outpatient (CLI) | payer OTHER, SELFPAY | PROVIDERS: PCP Family Medicine; Visit Provider Family Medicine | DX: N39.0 Urinary tract infection, site not specified (principal) | CPT/HCPCS: 87086 ==

== ENCOUNTER 2022-07-08 15:12 | Emergency (ER) | payer OTHER, SELFPAY ==
[2022-07-08 15:48] VITALS: BP 106/61; PULSE 80; RESP 18; TEMP 36.8; O2SAT 98; BMI 22.4
[2022-07-08 17:10] LABS: Influenza A - CEPHEID Flu A NEGATIVE (NEGATIVE); Influenza B - CEPHEID Flu B NEGATIVE (NEGATIVE); Respiratory Syncytial Virus Negative (Negative)
[2022-07-08 17:13] LABS: COVID-19 CEPHEID 4-PLEX PCR POSITIVE (Negative)
--- NOTE | 2022-07-08 18:59 | ED_ITS ---
HPI - Nausea/Vomiting/Diarrhea <Gosia Cuellar PA-C - Last Filed: 07/08/22 20:28> General Chief complaint: Nausea/Vomiting/Diarrhea Stated complaint: headache, nausea, ear pain Time Seen by Provider: 07/08/22 18:44 Source: patient Mode of arrival: Ambulatory History of Present Illness HPI Narrative: 26-year-old female with past medical history bipolar disorder, anxiety presents to the ED with 4 days of headache, nausea, ear pressure. Patient denies fever, chills, chest pain, shortness of breath, vomiting, abdominal pain, dysuria, lightheadedness, syncope. Patient states that her headaches have been resistant to ibuprofen and Tylenol. Patient denies any vision changes. Related Data Home Medications Medication Instructions Recorded Confirmed fluticasone propionate 50 1 spray intranasal DAILY PRN 03/22/18 07/08/21 mcg/actuation nasal allergy symptoms spray,suspension prenat.vits,zack,[id number]-[id number]-wtiuw 1 tab PO DAILY 10/08/20 07/08/21 Previous Rx's Medication Instructions Recorded acetaminophen 325 mg tablet 650 mg PO Q6H PRN Fever/Mild Pain 05/18/21 (1-3) #30 tabs docusate sodium 100 mg capsule 200 mg PO DAILY #30 caps 05/18/21 ibuprofen 600 mg tablet 600 mg PO Q6H PRN Fever/Mild Pain 05/18/21 (1-3) #30 tabs ondansetron 4 mg disintegrating 4 mg PO Q4HR PRN Nausea And 05/18/21 tablet Vomiting #30 tabs oxycodone 5 mg tablet 5 mg PO Q4H PRN Pain, Moderate 05/18/21 (4-6) #30 tabs lamotrigine 100 mg tablet See Rx Instructions .Route 06/30/22 .COMPLEX #60 tabs Allergies Allergy/AdvReac Type Severity Reaction Status Date / Time minocycline Allergy Intermediate Vomiting Verified 07/08/22 15:48 sulfamethoxazole AdvReac Intermediate nausea, Verified 07/08/22 15:48 [From Bactrim] vomiting, dizziness trimethoprim [From Bactrim] AdvReac Intermediate nausea, Verified 07/08/22 15:48 vomiting, dizziness Review of Systems <Gosia Cuellar PA-C - Last Filed: 07/08/22 20:28> Review of Systems ROS Unobtainable: All systems reviewed & are unremarkable except as noted in HPI and below Constitutional Constitutional: Denies chills, Denies fatigue, Denies fever(s), Denies frequent falls, Reports headache(s), Denies lethargy and Denies weakness Eyes Eyes: Denies change in vision, Denies eye discharge, Denies irritation and Denies loss of vision ENT Ears, Nose, Mouth, and Throat: Denies change in voice, Denies dizziness, Reports otalgia, Reports headache(s), Denies neck pain, Denies sore throat and Denies throat swelling Cardiovascular Cardiovascular: Denies chest pain, Denies irregular heart rhythm, Denies lightheadedness, Denies palpitations, Denies dyspnea, Denies dyspnea on exertion and Denies orthopnea Respiratory Respiratory: Denies cough, Denies dyspnea, Denies dyspnea on exertion and Denies wheezing Gastrointestinal Gastrointestinal: Denies abdominal pain, Denies change in bowel habits, Denies d iarrhea, Reports nausea and Denies vomiting Genitourinary Genitourinary: Denies hematuria, Denies flank pain, Denies urinary incontinence and Denies urinary urgency Musculoskeletal Musculoskeletal: Denies back pain, Denies muscle weakness, Denies neck pain, Denies numbness and Denies tingling Integumentary/Breasts Skin/Breast: Denies pruritus, Denies erythema, Denies rash and Denies wounds Neurologic Neurologic: Denies behavioral changes, Denies confusion, Denies dizziness, Denies frequent falls, Reports headache(s), Denies loss of vision, Denies numbness, Denies tingling and Denies weakness Psychiatric Psychiatric: Denies anxiety, Denies behavioral changes, Denies confusion, Denies depression, Denies homicidal ideation and Denies suicidal ideation Endocrine Endocrine: Denies fatigue, Denies flushing and Denies palpitations Hematologic/Lymphatic Hematologic/Lymphatic: Denies easy bruising Allergic/Immunologic Allergic/Immunologic: Denies urticaria, Denies throat swelling and Denies wheezing Patient History <Gosia Cuellar PA-C - Last Filed: 07/08/22 20:28> Medical History (Updated 07/08/22 @ 20:25 by Gosia Cuellar PA-C) Asthma Bipolar disorder Dermatitis H/O transfusion of whole blood (~10/2018) Pneumonia (~2014) Right hip pain (~2018) Seasonal allergic rhinitis Surgical History (Updated 12/11/20 @ 08:47 by Evie Collazo MD) S/P (~11/04/18) [place] teeth extracted (~06/2019) Family History (Updated 10/08/20 @ 13:00 by Rhiannon Grimm RN) Mother Asthma Father Diabetes mellitus Type 1 diabetes Cardiac anomaly Neuropathy Grandmother No problems noted. Grandfather History of being hospitalized Grandmother Unknown whether patient has any health problems Grandfather Unknown whether patient has any health problems Family estrangement Family/Other Hypertension CVA (cerebral vascular accident) Family/Other CVA (cerebral vascular accident) Brother No problems noted. Sister Eczema Social History marital status: number of children: 1 household members: spouse and children lives independently: Yes pets and animals: Yes (X 2 dogs) education level: college (some College) occupational status: employed current occupational exposures/hazards: Yes (Follows close guidlines re Covid) Previous occupational history: Vocational Rehab special melissa needs: No Smoking Status: Never smoker second hand exposure: No alcohol intake: never substance use type: does not use Smoking Status: Never smoker alcohol intake frequency: 0-2 drinks per day Substance Use Type: does not use Exam <Gosia Cuellar PA-C - Last Filed: 07/08/22 20:28> Narrative Exam Narrative: Const General:?cooperative, healthy appearing and comfortable [facility] Head:?normal to inspection Ears:?hearing grossly normal bilaterally; bilateral tympanum normal Nose:?external nose normal Face and sinus:?normal facial exam and sinuses nontender Mouth:?oral mucosae normal Throat:?posterior oropharynx normal Eyes General:?appearance normal, both eyes and all related structures Neck Neck:?normal visual inspection and no lymphadenopathy noted Resp Effort & Inspection:?normal respiratory effort Auscultation:?clear to auscultation bilaterally Cardio Rate:?regular rate Rhythm:?regular rhythm Neuro General:?patient alert, patient awake and patient oriented x3; PERRLA, CN 1 through 12 intact bilaterally; gait normal Initial Vital Signs Initial Vital Signs: Vital Signs Temperature 98.2 F 07/08/22 15:48 Pulse Rate 80 07/08/22 15:48 Respiratory Rate 18 07/08/22 15:48 Blood Pressure 106/61 07/08/22 15:48 Pulse Oximetry 98 07/08/22 15:48 Oxygen Delivery Method 07/08/22 15:48 <Kd Ceron DO - Last Filed: 07/09/22 01:35> Initial Vital Signs Initial Vital Signs: Vital Signs Temperature 98.2 F 07/08/22 15:48 Pulse Rate 80 07/08/22 15:48 Respiratory Rate 18 07/08/22 15:48 Blood Pressure 106/61 07/08/22 15:48 Pulse Oximetry 98 07/08/22 15:48 Oxygen Delivery Method 07/08/22 15:48 Course <Gosia Cuellar PA-C - Last Filed: 07/08/22 20:28> Orders Ordered: Discontinued Medications Acetaminophen (Acetaminophen 325 Mg Tablet) 975 mg PO NOW ONE Stop: 07/08/22 19:10 Last Admin: 07/08/22 19:28 Dose: 975 mg Documented By: CRYSTAL Diphenhydramine HCl (Diphenhydramine 50 Mg/Ml Vial) 50 mg IV NOW ONE Stop: 07/08/22 19:10 Last Admin: 07/08/22 19:29 Dose: 25 mg Documented By: CRYSTAL Sodium Chloride (Normal Saline 0.9%) 1,000 mls @ 1,000 mls/hr IV BOLUS ONE Stop: 07/08/22 20:08 Last Infusion: 07/08/22 20:28 Dose: 0 mls/hr Documented By: Admin: 07/08/22 19:27 Dose: 1,000 mls/hr Documented By: CRYSTAL Ketorolac Tromethamine (Ketorolac 30 Mg/Ml Vial) 15 mg IV NOW ONE Stop: 07/08/22 19:10 Last Admin: 07/08/22 19:28 Dose: 15 mg Documented By: CRYSTAL Metoclopramide HCl (Metoclopramide 10 Mg/2 Ml Inj) 10 mg IV NOW ONE Stop: 07/08/22 19:10 Last Admin: 07/08/22 19:27 Dose: 10 mg Documented By: BS Vital Signs Vital signs: Vital Signs - 8 hr 07/08/22 19:51 07/08/22 19:52 07/08/22 19:52 Pulse Rate 61 64 Blood Pressure 123/83 Pulse Oximetry 100 100 Oxygen Delivery Method 07/08/22 20:00 07/08/22 20:00 07/08/22 20:30 Pulse Rate 68 Blood Pressure 126/81 112/73 Pulse Oximetry 100 Oxygen Delivery Method 07/08/22 20:30 Pulse Rate 60 Blood Pressure Pulse Oximetry 97 Oxygen Delivery Method Room Air <Kd Ceron DO - Last Filed: 07/09/22 01:35> Orders Ordered: Discontinued Medications Acetaminophen (Acetaminophen 325 Mg Tablet) 975 mg PO NOW ONE Stop: 07/08/22 19:10 Last Admin: 07/08/22 19:28 Dose: 975 mg Documented By: BS Diphenhydramine HCl (Diphenhydramine 50 Mg/Ml Vial) 50 mg IV NOW ONE Stop: 07/08/22 19:10 Last Admin: 07/08/22 19:29 Dose: 25 mg Documented By: BS Sodium Chloride (Normal Saline 0.9%) 1,000 mls @ 1,000 mls/hr IV BOLUS ONE Stop: 07/08/22 20:08 Last Infusion: 07/08/22 20:28 Dose: 0 mls/hr Documented By: Admin: 07/08/22 19:27 Dose: 1,000 mls/hr Documented By: CRYSTAL Ketorolac Tromethamine (Ketorolac 30 Mg/Ml Vial) 15 mg IV NOW ONE Stop: 07/08/22 19:10 Last Admin: 07/08/22 19:28 Dose: 15 mg Documented By: CRYSTAL Metoclopramide HCl (Metoclopramide 10 Mg/2 Ml Inj) 10 mg IV NOW ONE Stop: 07/08/22 19:10 Last Admin: 07/08/22 19:27 Dose: 10 mg Documented By: CRYSTAL Vital Signs Vital signs: Vital Signs - 8 hr 07/08/22 19:51 07/08/22 19:52 07/08/22 19:52 Pulse Rate 61 64 Blood Pressure 123/83 Pulse Oximetry 100 100 Oxygen Delivery Method 07/08/22 20:00 07/08/22 20:00 07/08/22 20:30 Pulse Rate 68 Blood Pressure 126/81 112/73 Pulse Oximetry 100 Oxygen Delivery Method 07/08/22 20:30 Pulse Rate 60 Blood Pressure Pulse Oximetry 97 Oxygen Delivery Method Room Air MDM - Nausea/Vomiting/Diarrhea <Gosia Cuellar PA-C - Last Filed: 07/08/22 20:28> Lab Data Labs: Lab Results 07/08/22 Range/Units 15:54 SARS-CoV-2 (PCR) Positive H (Negative) Influenza A (RT-PCR) Flu a negative (NEGATIVE) Influenza B (RT-PCR) Flu b negative (NEGATIVE) RSV (PCR) Negative (Negative) MDM Narrative Medical decision making narrative: 26-year-old female with past medical history bipolar disorder, anxiety presents to the ED with 4 days of headache, nausea, ear pressure. Concern for viral syndrome versus primary headache versus other. Will obtain respiratory swab. Patient tested positive for COVID-19. Will treat headache with Toradol, Tylenol, Reglan, Benadryl, IV fluids. Will reassess. Likely discharge home. Patient's headache went from 6/10 to 2/10 with the medications. Supportive care at home discussed with hydration, Tylenol, ibuprofen. ED return precautions were discussed with patient. Patient verbalized understanding. Medical records reviewed: Yes <Kd Ceron DO - Last Filed: 07/09/22 01:35> Lab Data Labs: Lab Results 07/08/22 Range/Units 15:54 SARS-CoV-2 (PCR) Positive H (Negative) Influenza A (RT-PCR) Flu a negative (NEGATIVE) Influenza B (RT-PCR) Flu b negative (NEGATIVE) RSV (PCR) Negative (Negative) Discharge Plan Departure Patient Disposition: Home Clinical Impression: COVID-19, Headache Instructions: DI for Headache, COVID-19 Activity Restrictions/Additional Instructions: You were evaluated in the ED today for headache, nausea, fatigue, ear pressure. You tested positive for COVID-19 in the ED today. Your symptoms are likely due to the COVID-19 infection. Your headache was treated with Tylenol, Toradol, Reglan, Benadryl, IV fluids. Your headache significantly improved with the medications. You may continue to take Tylenol, ibuprofen at home for your symptoms. Return to the ED if you experience any chest pain or shortness of breath. Prescriptions: No Action lamotrigine 100 mg tablet See Rx Instructions .ROUTE .COMPLEX Qty: 60 0RF Dose Instruction: TAKE 1 TABLET(100 MG) BY MOUTH EVERY NIGHT FOR 1 WEEK THEN TAKE 2 TABLETS BY MOUTH EVERY NIGHT Rx Instructions: TAKE 1 TABLET(100 MG) BY MOUTH EVERY NIGHT FOR 1 WEEK THEN TAKE 2 TABLETS BY MOUTH EVERY NIGHT prenat.vits,zack,[id number] Tablet 1 tab PO DAILY fluticasone propionate 50 mcg/actuation spray,suspension 1 spray NASAL DAILY PRN (Reason: allergy symptoms) acetaminophen 325 mg Tablet 650 mg PO Q6H PRN (Reason: Fever/Mild Pain (1-3)) Qty: 30 0RF docusate sodium 100 mg Capsule 200 mg PO DAILY Qty: 30 0RF ibuprofen 600 mg Tablet 600 mg PO Q6H PRN (Reason: Fever/Mild Pain (1-3)) Qty: 30 0RF ondansetron 4 mg Tablet,Disintegrating 4 mg PO Q4HR PRN (Reason: Nausea And Vomiting) Qty: 30 0RF oxycodone 5 mg Tablet 5 mg PO Q4H PRN (Reason: Pain, Moderate (4-6)) Qty: 30 0RF Referrals: Evie Collazo MD [Primary Care Provider] - Stand Alone Forms: Patient Portal/API <Kd Ceron DO - Last Filed: 07/09/22 01:35> Cosign ED Attending Cosignature Attestation: I was immediately available in the department for consultation. This documentation has been reviewed and I agree with assessment and plan. Supervised by Kd Ceron DO
[2022-07-08] MEDS: METOCLOPRAMIDE 10 MG/2 ML INJ IV (19:27)
[2022-07-08] MEDS: SODIUM CHLORIDE 0.9% 1,000 ML 1000 ML IV (19:27)
[2022-07-08] MEDS: ACETAMINOPHEN 325 MG TABLET 975 MG PO (19:28)
[2022-07-08] MEDS: KETOROLAC 30 MG/ML VIAL 15 MG IV (19:28)
[2022-07-08] MEDS: diphenhydrAMINE 50 MG/ML VIAL IV (19:29)
[2022-07-08 19:51] VITALS: PULSE 61; O2SAT 100
[2022-07-08 19:52] VITALS: BP 123/83; PULSE 64; O2SAT 100
[2022-07-08 20:00] VITALS: BP 126/81; PULSE 68; O2SAT 100
[2022-07-08 20:30] VITALS: BP 112/73; PULSE 60; O2SAT 97
== END 2022-07-08 20:38 | disposition home or self-care (01) ==
PROVIDERS: Emergency Medicine; Emergency Provider Student in an Organized Health Care Education/Training Program; PCP Family Medicine
DX: U07.1 COVID-19 (principal); R51.9 Headache, unspecified
CPT/HCPCS: 0241U; 36415; 96361; 96374; 96375; 99284; J1200; J1885; J2765

== ENCOUNTER 2023-06-17 12:04 | Emergency (ER) | payer OTHER, SELFPAY ==
[2023-06-17 12:11] VITALS: BP 107/59; PULSE 95; RESP 22; TEMP 36.8; O2SAT 99; BMI 26.5
--- NOTE | 2023-06-17 12:12 | DI.US.S_ITS ---
PROCEDURE: US OB <= 14 WEEKS FETUS INDICATIONS: 9 wk with bleeding. OUTSIDE/PRIOR DATING DATA: Last menstrual period (LMP): April 15, 2023. LMP-based estimated date of delivery (CHAD): January 20, 2024. First dating scan (date and location): June 17, 2023. Estimated date of delivery (CHAD) from first dating scan: January 16, 2024 TECHNIQUE: Real-time scanning was performed of the fetus and maternal pelvic organs, with image documentation. Endovaginal scanning was also performed to better visualize the fetus and maternal ovaries. COMPARISON: [facility], , US OB <= 14 WEEKS FETUS, 03/31/2018, 14:56. FINDINGS: Embryo: There is a single live intrauterine gestation which measures 2.8 cm in diameter for a gestational age of 9 weeks, 4 days. Heart rate: 175 Maternal organs: Ovaries have a normal sonographic appearance. There is a right corpus luteal cyst. IMPRESSION: Single live intrauterine gestation with a gestational age of 9 weeks 4 days by crown-rump length. We strive to produce accurate, complete, and clear reports of imaging services. To assist us in improving patient care, this report was composed using standard report templates and voice recognition software. Therefore, it may contain abnormal punctuation, insertions and/or omissions. Occasional wrong-word or sound-alike substitutions may occur. Though we review the report and make efforts to correct it, we do recommend that the report be read carefully in proper context to recognize any text inaccuracies. Dictated by: Crystal Liao M.D. on 06/17/2023 at 13:18 Approved by: Crystal Liao M.D. on 06/17/2023 at 13:21
--- NOTE | 2023-06-17 12:25 | PC.NURSE ---
cancelled heart tones due to 9 week and patient went straight to ultrasound to defer to their reading.
[2023-06-17 12:31] LABS: Appearance Urine UA CLEAR; Bilirubin Urine UA NEGATIVE (NEGATIVE); Color Urine UA YELLOW; Glucose Urine UA NEGATIVE (Negative); Ketones Urine UA NEGATIVE (NEGATIVE); Leukocyte Esterase Urine UA NEGATIVE (NEGATIVE); Nitrite Urine UA NEGATIVE (Negative); Occult Blood Urine UA 3+ (Negative); Protein Urine UA NEGATIVE (Negative); Specific Gravity Urine UA 1.015 (1.000-1.035); Urobilinogen Urine UA 0.2 E.U./dL (0.2)
[2023-06-17 12:34] LABS: pH Urine UA 6.5 (4.5-8.0)
[2023-06-17 12:39] LABS: RBC Urine 10-30/HPF (0-5/HPF); WBC Urine 0-1/HPF (0-5/HPF)
[2023-06-17 12:40] LABS: Bacteria Urine Few (2-10); Culture Indicated Urine Cult Not Indicated; Mucus Urine 1+ (Negative); Squamous Epithelial Cell Urine 1-5 /HPF (0-5/HPF)
--- NOTE | 2023-06-17 13:11 | ED_ITS ---
HPI - <JT Quintana-Steph - Last Filed: 06/17/23 19:39> General Chief complaint: Vaginal Bleeding Stated complaint: 9 weeks , bleeding Time Seen by Provider: 06/17/23 12:16 Source: patient and family Mode of arrival: Ambulatory Limitations: no limitations History of Present Illness HPI Narrative: This is a generally healthy 27-year-old female who is 9 weeks who presents with her with concern for vaginal bleeding that began this morning around 9 or 10:00 a.m. patient states that she slept in this morning and when she got out of bed and went to the bathroom she found that there was blood in her underwear. She says it was bright red and it was ?coating the bottom of my underwear? but had not soaked through. Since then she has used two panty liners which she has changed when she has gone to the bathroom. She states that the blood continues to be bright red appearing but has not become heavy, she has not had any clots. She denies any cramping or abdominal or pelvic pain. She does state that she has been having some low back pains that are bilateral and above her tailbone for the past 3 nights but only at night when she is lying flat. She also endorses that she sometimes has some sharp twinging type pains at the location of her scar in the front for the past few weeks but these only happen when she twists or moves and are brief intermittent pains. She currently has no pain and also denies fevers, chills, nausea, vomiting, dysuria, flank pain, dizziness, lightheadedness, palpitations, chest pain, shortness of breath, or any other symptoms. She has been eating and drinking normally and states that this feels the same as her previous 2 pregnancies thus far. She sees Dr. Collazo and is scheduled to have her 1st OB visit on June 26 in 9 days' time. She states her previous 2 pregnancies were without complication she did have C-sections both times at term. She last gave and had a 2 years ago. Patient also shares that she had her Apple watch tell her last night that she had a heart rate up to 120 briefly while she was at rest. Patient states she did not notice this happening and had no associated symptoms she was only aware of it because the watch advised her. Related Data Home Medications Medication Instructions Recorded Confirmed fluticasone propionate 50 1 spray intranasal DAILY PRN 03/22/18 06/10/23 mcg/actuation nasal allergy symptoms spray,suspension prenat.vits,zack,oqe-jjkq-nmlus 1 tab PO DAILY 10/08/20 06/10/23 Previous Rx's Medication Instructions Recorded lamotrigine 100 mg tablet See Rx Instructions .Route 03/12/23 .COMPLEX #60 tabs Allergies Allergy/AdvReac Type Severity Reaction Status Date / Time minocycline AdvReac Intermediate Vomiting Verified 06/10/23 08:06 sulfamethoxazole AdvReac Intermediate nausea, Verified 06/10/23 08:06 [From Bactrim] vomiting, dizziness trimethoprim [From Bactrim] AdvReac Intermediate nausea, Verified 06/10/23 08:06 vomiting, dizziness Review of Systems <Ludy Mccoy PA-C - Last Filed: 06/17/23 19:39> Review of Systems Narrative: See HPI Exam <Ludy Mccoy PA-C - Last Filed: 06/17/23 19:39> Narrative Exam Narrative: GENERAL: [27] year old patient appears stated age. Well-developed patient, in mild distress. HEAD: Atraumatic. Normocephalic. EYES: Pupils equal round and reactive. Extraocular motions intact. No scleral icterus. No injection or drainage. ENT: Nose without bleeding, purulent drainage. Airway patent. NECK: Trachea midline. Non tender CARDIOVASCULAR: Regular rate and rhythm without murmurs, gallops, or rubs. RESPIRATORY: Clear to auscultation. Breath sounds equal bilaterally. No wheezes, rales, or rhonchi. GASTROINTESTINAL: Abdomen soft, non-tender, nondistended, slightly protuberant. EXTREMITIES: No edema or joint tenderness. BACK: Nontender without deformity or crepitance. No flank tenderness, no CVA tenderness. NEURO: AOx3. SKIN: No rash or erythema of visible areas Initial Vital Signs Initial Vital Signs: Vital Signs Temperature 98.2 F 06/17/23 12:11 Pulse Rate 95 H 06/17/23 12:11 Respiratory Rate 22 06/17/23 12:11 Blood Pressure 107/59 L 06/17/23 12:11 Pulse Oximetry 99 06/17/23 12:11 Oxygen Delivery Method Room Air 06/17/23 12:11 <Cele Park DO - Last Filed: 06/18/23 07:15> Initial Vital Signs Initial Vital Signs: Vital Signs Temperature 98.2 F 06/17/23 12:11 Pulse Rate 95 H 06/17/23 12:11 Respiratory Rate 22 06/17/23 12:11 Blood Pressure 107/59 L 06/17/23 12:11 Pulse Oximetry 99 06/17/23 12:11 Oxygen Delivery Method Room Air 06/17/23 12:11 Course <Ludy Mccoy PA-C - Last Filed: 06/17/23 19:39> Orders Ordered: ED Orders 06/17/23 12:12 US OB <= 14 weeks fetus Stat 06/17/23 12:20 Urinalysis and Microscopic Stat 06/17/23 12:50 Complete Blood Count AUTO DIFF Stat Comprehensive Metabolic Panel Stat HCG Quantitative /Beta subunit Stat Type and Screen Stat Vital Signs Vital signs: Vital Signs - 8 hr 06/17/23 12:11 06/17/23 13:41 06/17/23 14:28 Temperature 98.2 F 98.9 F Pulse Rate 95 H 70 Respiratory Rate 22 18 Blood Pressure 107/59 L 92/54 L 94/58 L Pulse Oximetry 99 99 Oxygen Delivery Method Room Air Room Air 06/17/23 15:30 06/17/23 15:31 Temperature 98.2 F Pulse Rate 76 78 Respiratory Rate 18 18 Blood Pressure 98/60 98/60 Pulse Oximetry 98 98 Oxygen Delivery Method Room Air Room Air <Cele Park DO - Last Filed: 06/18/23 07:15> Orders Ordered: ED Orders 06/17/23 12:12 US OB <= 14 weeks fetus Stat 06/17/23 12:20 Urinalysis and Microscopic Stat 06/17/23 12:50 Complete Blood Count AUTO DIFF Stat Comprehensive Metabolic Panel Stat HCG Quantitative /Beta subunit Stat Type and Screen Stat Vital Signs Vital signs: Vital Signs - 8 hr 06/17/23 12:11 06/17/23 13:41 06/17/23 14:28 Temperature 98.2 F 98.9 F Pulse Rate 95 H 70 Respiratory Rate 22 18 Blood Pressure 107/59 L 92/54 L 94/58 L Pulse Oximetry 99 99 Oxygen Delivery Method Room Air Room Air 06/17/23 15:30 06/17/23 15:31 Temperature 98.2 F Pulse Rate 76 78 Respiratory Rate 18 18 Blood Pressure 98/60 98/60 Pulse Oximetry 98 98 Oxygen Delivery Method Room Air Room Air MDM - OB/Uterine Contractions <Ludy Mccoy PA-C - Last Filed: 06/17/23 19:39> Differential Diagnosis Differential diagnosis: Likely other (vaginal bleeding in first trimester, threatened ) Lab Data Attestation: I reviewed the patient's lab results. 06/17/23 12:50 06/17/23 12:50 Labs: Lab Results 06/17/23 06/17/23 Range/Units 12:20 12:50 WBC 9.2 (4.5-11.0) X10^3/uL RBC 4.48 (4.0-5.2) X10^6/uL Hgb 12.2 (12.0-16.0) g/dL Hct 36.1 (36-46) % MCV 80.5 (80-100) fL MCH 27.2 (26-34) PG MCHC 33.7 (30-36) % RDW 13.0 (11.6-14.8) % Plt Count 283 (150-400) X10^3/uL Neut % (Auto) 78.1 H (50-75) % Lymph % (Auto) 15.4 L (25-40) % [place] % (Auto) 5.0 (3-14) % Eos % (Auto) 0.7 L (2-4) % Baso % (Auto) 0.8 (0-2) % Neut # (Auto) 7200 H (0908-3856) /uL Lymph # (Auto) 1400 (9354-6715) /uL [place] # (Auto) 500 (0-900) /uL Eos # (Auto) 100 (0-450) /uL Baso # (Auto) 100 (0-100) /uL Sodium 136 L (137-145) mmol/L Potassium 3.8 (3.4-5.1) mmol/L Chloride 104 (98-107) mmol/L Carbon Dioxide 23 (22-32) mmol/L BUN 7 (7-17) mg/dL Creatinine 0.61 (0.52-1.04) mg/dL Estimated GFR > 60 (>60) mL/min BUN/Creatinine Ratio 11.5 (6-22) Glucose 93 (70-100) mg/dL Calcium 9.5 (8.4-10.2) mg/dL Total Bilirubin 0.6 (0.2-1.3) mg/dL AST 20 (14-36) IU/L ALT 17 (<35) IU/L Alkaline Phosphatase 46 (38-126) U/L Total Protein 7.7 (6.3-8.2) g/dL Albumin 4.5 (3.5-5.0) g/dL Globulin 3.2 (1.7-4.1) g/dL Albumin/Globulin Ratio 1.4 (1.0-2.8) HCG, Quant 562448 mIU/mL Urine Color Yellow Urine Appearance Clear Urine pH 6.5 (4.5-8.0) Ur Specific [place] 1.015 (1.000-1.035) Urine Protein Negative (Negative) Urine Glucose (UA) Negative (Negative) g/dL Urine Ketones Negative (NEGATIVE) Urine Occult Blood 3+ H (Negative) Urine Nitrate Negative (Negative) Urine Bilirubin Negative (NEGATIVE) Urine Urobilinogen 0.2 (0.2) E.U./dL Ur Leukocyte Esterase Negative (NEGATIVE) Urine RBC 10-30/hpf H (0-5/HPF) Urine WBC 0-1/hpf (0-5/HPF) Ur Squamous Epith Cells 1-5 /hpf (0-5/HPF) Urine Bacteria Few (2-10) H (None) Urine Mucus 1+ H (Negative) Ur Culture Indicated? Cult not indicated Blood Type AB Positive Antibody Screen Negative Imaging Data US : My Impression: Agree with Radiology interpretation Radiologist's Impression: [address] [address] Ultrasound Report Signed Patient: Kyleigh Medina MR#: [id number] : 1995 Acct:[id number] Age/Sex: 27 / F Date of Service: 06/17/23 Loc: ED Accession Number: [id number] Procedure: US OB <= 14 weeks fetus Ordering Provider: Ludy Mccoy P.A-C PROCEDURE: US OB <= 14 WEEKS FETUS INDICATIONS: 9 wk with bleeding. OUTSIDE/PRIOR DATING DATA: Last menstrual period (LMP): April 15, 2023. LMP-based estimated date of delivery (CHAD): January 20, 2024. First dating scan (date and location): June 17, 2023. Estimated date of delivery (CHAD) from first dating scan: January 16, 2024 TECHNIQUE: Real-time scanning was performed of the fetus and maternal pelvic organs, with image documentation. Endovaginal scanning was also performed to better visualize the fetus and maternal ovaries. COMPARISON: [facility], US, US OB <= 14 WEEKS FETUS, 03/31/2018, 14:56. FINDINGS: Embryo: There is a single live intrauterine gestation which measures 2.8 cm in diameter for a gestational age of 9 weeks, 4 days. Heart rate: 175 Maternal organs: Ovaries have a normal sonographic appearance. There is a right corpus luteal cyst. IMPRESSION: Single live intrauterine gestation with a gestational age of 9 weeks 4 days by crown-rump length. We strive to produce accurate, complete, and clear reports of imaging services. To assist us in improving patient care, this report was composed using standard report templates and voice recognition software. Therefore, it may contain abnormal punctuation, insertions and/or omissions. Occasional wrong-word or sound-alike substitutions may occur. Though we review the report and make efforts to correct it, we do recommend that the report be read carefully in proper context to recognize any text inaccuracies. Dictated by: Crystal Liao M.D. on 06/17/2023 at 13:18 Approved by: Crystal Liao M.D. on 06/17/2023 at 13:21 Treatment and disposition Shared decision making:: Shared decision-making was used in determining plan for evaluation in the emergency department and plan for outpatient follow-up MDM Narrative Medical decision making narrative: This is a generally healthy 27-year-old woman with history of anxiety and bipolar with 2 previous C-sections at term, currently 9 weeks LMP April 15, 2023 who presents to the ER with her with concern for vaginal bleeding since this morning. Patient's bleeding has been fairly light, she has gone through 2 panty liners in the 3-4 hours since the bleeding began but describes it as ?heavier than spotting?. Labs are obtained as well as a OB pelvic ultrasound and her labs are unremarkable, do not suggest acute blood loss or infectious process, she also is not having any symptoms except for the bleeding. Ultrasound returned showing a live IUP at 9 weeks 4 days with a heart rate of 175, no concerning findings noted on ultrasound, her hCG returns in the normal range for her stage of at [id number]. Discussed possibly performing a pelvic exam today however given normal ultrasound and patient is not having any pain, clotting or other abnormal discharge patient declines this, which I feel is reasonable. Patient is counseled she should have a repeat hCG blood test in 48-72 hours time, follow up closely with her OB provider by phone today to discuss the findings and see if she wants to get in to be seen sooner. Currently she is scheduled to be seen in 9 days' time as an outpatient with her OB. Her urine does not suggest UTI. Advise the patient that while her labs and ultrasound today look good, she will need to monitor symptoms over the next few days and get the repeat hCG lab done to evaluate which direction things are going in terms of the status of her . She is counseled specifically regarding monitoring for developing pain, fevers, chills, increasing bleeding or persistent bleeding and advised to return to the ER or seek immediate evaluation if these arise. She is also advised she may want to take it a little easy over the next few days. She is in understanding and agreement. Return precautions and follow up plan discussed, all questions answered. <Cele Park, DO - Last Filed: 06/18/23 07:15> Lab Data Labs: Lab Results 06/17/23 06/17/23 Range/Units 12:20 12:50 WBC 9.2 (4.5-11.0) X10^3/uL RBC 4.48 (4.0-5.2) X10^6/uL Hgb 12.2 (12.0-16.0) g/dL Hct 36.1 (36-46) % MCV 80.5 (80-100) fL MCH 27.2 (26-34) PG MCHC 33.7 (30-36) % RDW 13.0 (11.6-14.8) % Plt Count 283 (150-400) X10^3/uL Neut % (Auto) 78.1 H (50-75) % Lymph % (Auto) 15.4 L (25-40) % [place] % (Auto) 5.0 (3-14) % Eos % (Auto) 0.7 L (2-4) % Baso % (Auto) 0.8 (0-2) % Neut # (Auto) 7200 H (3030-4496) /uL Lymph # (Auto) 1400 (5361-4348) /uL [place] # (Auto) 500 (0-900) /uL Eos # (Auto) 100 (0-450) /uL Baso # (Auto) 100 (0-100) /uL Sodium 136 L (137-145) mmol/L Potassium 3.8 (3.4-5.1) mmol/L Chloride 104 (98-107) mmol/L Carbon Dioxide 23 (22-32) mmol/L BUN 7 (7-17) mg/dL Creatinine 0.61 (0.52-1.04) mg/dL Estimated GFR > 60 (>60) mL/min BUN/Creatinine Ratio 11.5 (6-22) Glucose 93 (70-100) mg/dL Calcium 9.5 (8.4-10.2) mg/dL Total Bilirubin 0.6 (0.2-1.3) mg/dL AST 20 (14-36) IU/L ALT 17 (<35) IU/L Alkaline Phosphatase 46 (38-126) U/L Total Protein 7.7 (6.3-8.2) g/dL Albumin 4.5 (3.5-5.0) g/dL Globulin 3.2 (1.7-4.1) g/dL Albumin/Globulin Ratio 1.4 (1.0-2.8) HCG, Quant 606125 mIU/mL Urine Color Yellow Urine Appearance Clear Urine pH 6.5 (4.5-8.0) Ur Specific [place] 1.015 (1.000-1.035) Urine Protein Negative (Negative) Urine Glucose (UA) Negative (Negative) g/dL Urine Ketones Negative (NEGATIVE) Urine Occult Blood 3+ H (Negative) Urine Nitrate Negative (Negative) Urine Bilirubin Negative (NEGATIVE) Urine Urobilinogen 0.2 (0.2) E.U./dL Ur Leukocyte Esterase Negative (NEGATIVE) Urine RBC 10-30/hpf H (0-5/HPF) Urine WBC 0-1/hpf (0-5/HPF) Ur Squamous Epith Cells 1-5 /hpf (0-5/HPF) Urine Bacteria Few (2-10) H (None) Urine Mucus 1+ H (Negative) Ur Culture Indicated? Cult not indicated Blood Type AB Positive Antibody Screen Negative Discharge Plan Departure Patient Disposition: Home Clinical Impression: Vaginal bleeding before 22 weeks gestation Activity Restrictions/Additional Instructions: *You have been diagnosed with [ vaginal bleeding in 1st trimester] *What to do: *Please continue to take your regular medications as directed. [ ] New medication prescriptions sent to your pharmacy: [ ] [ ] New medication written as a paper prescription [X ] No new medications given *Please follow up with your primary care provider in 2-3 days, call for an appointment. Let them know you were seen in the Emergency Department and that we ask that you be seen in follow up. We will electronically transmit a record of today's note if your PCP is in our system. HCG level today by blood draw is [id number]. We performed labs today as well as an ultrasound and exam. We checked her labs including hCG and did an ultrasound today hCG level as above is in the normal range for your stage of . The ultrasound obtained today does show a live within the uterus dated at 9 weeks and 4 days with a heart rate of 175. There were no abnormalities noted on the ultrasound to explain your recent bleeding. We did discuss possibly performing a pelvic exam however this was not performed today. Your bleeding has been relatively light but it is very important to monitor carefully for persistent bleeding or heavier bleeding or passing of clots, or if you develop any pelvic pain or abdominal pain or other symptoms such as dizziness lightheadedness or syncope it is extremely important you seek re-evaluation immediately. If your bleeding lightens or does not worsen over the next couple of days and you do not develop any other symptoms it is reasonable to simply follow up with your OB provider in the next 2-3 days, at minimum you need to have a lab draw to recheck her hCG levels by blood and talk to your OB on the phone about your visit today she may want to see you sooner than the given your current symptoms. While the labs and ultrasound were encouraging today it is important to know that a recheck of your hCG levels and how your symptoms progress over the next few days will be very important in determining what is going on with your . *If you do not have a primary care provider please contact [facility] Resource line at [phone]. They will ask some questions about your medical history and help get you set up with a doctor in the community. *Return to Emergency Department if you should have any new, worsening or concerning symptoms, such as [fever greater than 101 F, shaking chills, worsening pain, persistent vomiting or other bothersome symptoms] Prescriptions: No Action lamotrigine 100 mg tablet See Rx Instructions .ROUTE .COMPLEX Qty: 60 3RF Dose Instruction: TAKE 2 TABLETS BY MOUTH EVERY NIGHT Rx Instructions: TAKE 2 TABLETS BY MOUTH EVERY NIGHT prenat.vits,zack,nwb-vmdm-mwxog Tablet 1 tab PO DAILY fluticasone propionate 50 mcg/actuation spray,suspension 1 spray NASAL DAILY PRN (Reason: allergy symptoms) Referrals: Evie Collazo MD [Primary Care Provider] - Stand Alone Forms: Patient Portal/API ED Sign-out <Cele Park DO - Last Filed: 06/18/23 07:15> Cosign ED Attending Coshusseinature Attestation: I was immediately available in the department for consultation.
[2023-06-17 13:27] LABS: Add Manual Diff / Slide Review NO; Basophils Absolute Auto 100 /uL (0-100); Basophils Percent Auto 0.8 % (0-2); Eosinophils Absolute Auto 100 /uL (0-450); Eosinophils Percent Auto 0.7 % (2-4); Hematocrit 36.1 % (36-46); Hemoglobin 12.2 g/dL (12.0-16.0); Lymphocytes Absolute Auto 1400 /uL (1100-4500); Lymphocytes Percent Auto 15.4 % (25-40); Mean Corpuscular HGB Conc 33.7 % (30-36); Mean Corpuscular Hemoglobin 27.2 PG (26-34); Mean Corpuscular Volume 80.5 fL (80-100); Monocytes Absolute Auto 500 /uL (0-900); Neutrophils Absolute Auto 7200 /uL (1500-7000); Neutrophils Percent Auto 78.1 % (50-75); Platelet Count 283 X10^3/uL (150-400); Red Blood Cell Count 4.48 X10^6/uL (4.0-5.2); White Blood Cell Count 9.2 X10^3/uL (4.5-11.0)
[2023-06-17 13:41] VITALS: BP 92/54; PULSE 70; RESP 18; TEMP 37.2; O2SAT 99
[2023-06-17 13:48] LABS: Alanine Aminotransferase 17 IU/L (<35); Albumin 4.5 g/dL (3.5-5.0); Albumin Globulin Ratio 1.4 (1.0-2.8); Alkaline Phosphatase 46 U/L (38-126); Aspartate Aminotransferase 20 IU/L (14-36); BUN Creatinine Ratio 11.5 (6-22); Bilirubin Total 0.6 mg/dL (0.2-1.3); Blood Urea Nitrogen 7 mg/dL (7-17); Calcium 9.5 mg/dL (8.4-10.2); Carbon Dioxide 23 mmol/L (22-32); Chloride 104 mmol/L (98-107); Estimated Glomerular Filt Rate > 60 mL/min (>60); Globulin 3.2 g/dL (1.7-4.1); Glucose 93 mg/dL (70-100); HEMOLYSIS < 15 (0-50); Potassium 3.8 mmol/L (3.4-5.1); Sodium 136 mmol/L (137-145); Total Protein 7.7 g/dL (6.3-8.2)
[2023-06-17 14:28] VITALS: BP 94/58
[2023-06-17 14:40] LABS: HCG Quantitative /Beta subunit 169040 mIU/mL
[2023-06-17 15:30] VITALS: BP 98/60; PULSE 76; RESP 18; O2SAT 98
[2023-06-17 15:31] VITALS: BP 98/60; PULSE 78; RESP 18; TEMP 36.8; O2SAT 98
== END 2023-06-17 15:32 | disposition home or self-care (01) ==
PROVIDERS: Emergency Provider Student in an Organized Health Care Education/Training Program; PCP Family Medicine
DX: O20.9 Hemorrhage in early pregnancy, unspecified (principal); Z3A.09 9 weeks gestation of pregnancy
CPT/HCPCS: 36415; 76801; 80053; 81001; 84702; 85025; 86850; 86900; 86901; 99283; 99284

== ENCOUNTER → 2023-06-19 07:38 | Outpatient (CLI) | payer OTHER, SELFPAY ==
[2023-06-19 09:57] LABS: HCG Quantitative /Beta subunit 153270 mIU/mL
== END ==
LOC: LAB 07:38
PROVIDERS: PCP Family Medicine; Referring Provider Family Medicine; Visit Provider Family Medicine
DX: Z34.80 Encounter for supervision of other normal pregnancy, unspecified trimester (principal); O20.9 Hemorrhage in early pregnancy, unspecified
CPT/HCPCS: 36415; 84702

== ENCOUNTER → 2023-06-26 12:36 | Outpatient (CLI) | payer OTHER, SELFPAY ==
[2023-06-26 13:07] LABS: Specimen Label NATERA
[2023-06-26 13:22] LABS: Appearance Urine UA CLEAR; Bilirubin Urine UA NEGATIVE (NEGATIVE); Color Urine UA YELLOW; Glucose Urine UA NEGATIVE (Negative); Ketones Urine UA TRACE (NEGATIVE); Leukocyte Esterase Urine UA NEGATIVE (NEGATIVE); Nitrite Urine UA NEGATIVE (Negative); Occult Blood Urine UA NEGATIVE (Negative); Protein Urine UA NEGATIVE (Negative); Specific Gravity Urine UA 1.015 (1.000-1.035); Urobilinogen Urine UA 0.2 E.U./dL (0.2)
[2023-06-26 13:25] LABS: pH Urine UA 6.5 (4.5-8.0)
[2023-06-26 14:10] LABS: Add Manual Diff / Slide Review NO; Basophils Absolute Auto 100 /uL (0-100); Basophils Percent Auto 0.7 % (0-2); Eosinophils Absolute Auto 200 /uL (0-450); Eosinophils Percent Auto 1.5 % (2-4); Lymphocytes Absolute Auto 2100 /uL (1100-4500); Lymphocytes Percent Auto 18.3 % (25-40); Mean Corpuscular HGB Conc 33.3 % (30-36); Mean Corpuscular Hemoglobin 26.7 PG (26-34); Mean Corpuscular Volume 80.1 fL (80-100); Monocytes Absolute Auto 400 /uL (0-900); Monocytes Percent Auto 3.9 % (3-14); Neutrophils Absolute Auto 8700 /uL (1500-7000); Neutrophils Percent Auto 75.6 % (50-75); Platelet Count 306 X10^3/uL (150-400); Red Blood Cell Count 4.49 X10^6/uL (4.0-5.2); Red Cell Distribution Width 13.1 % (11.6-14.8); White Blood Cell Count 11.5 X10^3/uL (4.5-11.0)
[2023-06-27 04:44] LABS: RPR Screen Non Reactive (Non Reactive)
[2023-06-27 09:30] LABS: Varicella IgG Antibody 1573 index (Immune >165)
[2023-06-29 15:48] LABS: Hepatitis B Surface Antigen NEGATIVE s/c (NEGATIVE); Rubella Antibody IgG 18.9 IU/mL (>15)
[2023-06-29 16:14] LABS: HIV 1 & 2 Ab/Ag 4th Gen Combo NEGATIVE (NEGATIVE); Hep C Virus Ab w/Reflex Quant NEGATIVE s/c (NEGATIVE)
== END ==
LOC: LAB 12:37
PROVIDERS: PCP Family Medicine; Referring Provider Family Medicine; Visit Provider Family Medicine
DX: Z34.80 Encounter for supervision of other normal pregnancy, unspecified trimester (principal)
CPT/HCPCS: 36415; 80055; 81003; 86787; 86803; 86850; 86900; 86901; 87086; 87389

== ENCOUNTER → 2023-09-14 06:56 | Outpatient (CLI) | payer OTHER, SELFPAY ==
--- NOTE | 2023-09-14 06:57 | DI.US.S_ITS ---
PROCEDURE: US OB >= 14 WEEKS FETUS INDICATIONS: ANATOMY OUTSIDE/PRIOR DATING DATA: Last menstrual period (LMP): 04/15/2023. LMP-based estimated date of delivery (CHAD): 01/20/2024. First dating scan (date and location): 06/17/2023. Estimated date of delivery (CHAD) from first dating scan: 01/16/2024. The calculations are made using the clinical CHAD of 01/20/2024. TECHNIQUE: Real-time scanning was performed of the fetus, with image documentation and biometric measurements. Endovaginal scanning: Not performed. COMPARISON: [facility], OB <= 14 WEEKS FETUS, 06/17/2023, 12:26. [facility], OB >= 14 WEEKS FETUS, 12/25/2020, 10:21. FINDINGS: General: A single living intrauterine gestation is present. Presentation: Breech. Placenta: Placental position is posterior, without previa. Amniotic fluid index: 13.6 cm, normal range is 5-24 cm. Single deepest vertical pocket is 4.6 cm. heart rate: 140 beats per minute. Maternal cervical canal: 3.4 cm long. Normal lower limit is 2.5 cm. biometrics: Biparietal diameter: 5.4 cm, 22 weeks 3 days Head circumference: 20.6 cm, 22 weeks 5 days Abdominal circumference: 17.6 cm, 22 weeks 4 days Femur length: 3.9 cm, 22 weeks 3 days Clinically estimated gestational age: 21 weeks 5 days Composite gestational age from present scan: 22 weeks 4 days Estimated weight and percentile: 510 g, 83rd percentile. Anatomic survey: Neuro: Ventricles are non-dilated at less than 10 mm. Cisterna magna is normal at 3-11 mm. Cerebellum is normal in size and morphology. Nuchal skin fold: Normal at less than 6 mm between 14-21 weeks gestational age. Face: Profile not well seen due to lie. Nose and lips are normal. Spine: No evidence for spina bifida. Heart: 4-chambered heart is present, with normal ventricular outflow tracts. Diaphragm: Diaphragm is intact. Stomach: Left-sided stomach is present. Kidneys: No hydronephrosis. Normal is less than 5 mm in 2nd trimester, less than 7 mm in 3rd trimester. Cord: 3-vessel cord has orthotopic insertion. Bladder: Normal in size. Extremities: All 4 extremities identified. IMPRESSION: 1. [place] living intrauterine at 22 weeks 4 days based on today's ultrasound. Fetus is in the 83rd percentile for weight. 2. Normal placenta and amniotic fluid. 3. profile is not well seen due to lie. Otherwise normal anatomic survey. Consider follow-up OB ultrasound. We strive to produce accurate, complete, and clear reports of imaging services. To assist us in improving patient care, this report was composed using standard report templates and voice recognition software. Therefore, it may contain abnormal punctuation, insertions and/or omissions. Occasional wrong-word or sound-alike substitutions may occur. Though we review the report and make efforts to correct it, we do recommend that the report be read carefully in proper context to recognize any text inaccuracies. Dictated by: Afshin Montoya M.D. on 09/17/2023 at 9:38 Approved by: Afshin Montoya M.D. on 09/17/2023 at 9:44
== END ==
LOC: US 06:56
PROVIDERS: PCP Family Medicine; Referring Provider Family Medicine; Visit Provider Family Medicine
DX: Z34.82 Encounter for supervision of other normal pregnancy, second trimester (principal); Z3A.22 22 weeks gestation of pregnancy
CPT/HCPCS: 76811

== ENCOUNTER → 2023-10-19 08:58 | Outpatient (CLI) | payer OTHER, SELFPAY ==
--- NOTE | 2023-10-19 09:00 | DI.US.S_ITS ---
PROCEDURE: US OB FOLLOW UP INDICATIONS: unable to see all structures, face OUTSIDE/PRIOR DATING DATA: Last menstrual period (LMP): 04/15/2023. LMP-based estimated date of delivery (CHAD): 01/20/2024. First dating scan (date and location): 06/17/2023. Estimated date of delivery (CHAD) from first dating scan: 01/16/2024. The calculations are made using the working CHAD of 01/20/2024. TECHNIQUE: Real-time scanning was performed of the fetus, with image documentation. Endovaginal scanning: Not performed COMPARISON: [facility], OB >= 14 WEEKS FETUS, 09/14/2023, 7:11. FINDINGS: A single living intrauterine gestation is present. Presentation: Breech. Placenta: Placental position is posterior, without previa. Amniotic fluid index: 16.7 cm, normal range is 5-24 cm. Single deepest vertical pocket is 5.2 cm. heart rate: 150 beats per minute. Maternal cervical canal: 2.7 cm long. Normal lower limit is 2.5 cm. Clinically estimated gestational age: 26 weeks 5 days Other: Facial profile well seen, within normal limits. Upper limits of normal, but not abnormally dilated bilateral renal pelves, measuring 6.1 mm on the right and 6.0 mm on the left. IMPRESSION: 1. Normal facial profile. 2. Normal facial profile. 3. Upper limits of normal bilateral renal pelves. Dictated by: Jose Kirk M.D. on 10/19/2023 at 10:28 Approved by: Jose Kirk M.D. on 10/19/2023 at 10:35
[2023-10-19 10:29] LABS: Add Manual Diff / Slide Review NO; Basophils Absolute Auto 100 /uL (0-100); Basophils Percent Auto 0.7 % (0-2); Eosinophils Absolute Auto 200 /uL (0-450); Eosinophils Percent Auto 1.5 % (2-4); Hemoglobin 10.3 g/dL (12.0-16.0); Lymphocytes Absolute Auto 1800 /uL (1100-4500); Lymphocytes Percent Auto 14.2 % (25-40); Mean Corpuscular HGB Conc 33.4 % (30-36); Mean Corpuscular Hemoglobin 26.4 PG (26-34); Mean Corpuscular Volume 79.1 fL (80-100); Monocytes Absolute Auto 600 /uL (0-900); Monocytes Percent Auto 4.7 % (3-14); Neutrophils Absolute Auto 10300 /uL (1500-7000); Neutrophils Percent Auto 78.9 % (50-75); Platelet Count 277 X10^3/uL (150-400); Red Blood Cell Count 3.91 X10^6/uL (4.0-5.2); Red Cell Distribution Width 13.3 % (11.6-14.8)
[2023-10-19 11:45] LABS: GTT (PREG) 1 Hour PP 50gm Dose 106 mg/dL (76-139)
== END ==
PROVIDERS: PCP Family Medicine; Referring Provider Family Medicine; Visit Provider Family Medicine
DX: Z34.82 Encounter for supervision of other normal pregnancy, second trimester (principal); Z3A.26 26 weeks gestation of pregnancy
CPT/HCPCS: 36415; 76816; 82950; 85025; 86850

== ENCOUNTER 2023-11-17 16:36 | Observation (INO) | payer OTHER, SELFPAY ==
[2023-11-17] MEDS: LACTATED RINGERS 1,000 ML 1000 ML IV (17:14)
[2023-11-17] MEDS: ONDANSETRON 4 MG/2 ML INJ IV (17:27)
== END 2023-11-17 18:40 | disposition home or self-care (01) ==
LOC: LABOR 16:42
PROVIDERS: Admitting Provider Student in an Organized Health Care Education/Training Program; PCP Family Medicine; Referring Provider Student in an Organized Health Care Education/Training Program; Visit Provider Student in an Organized Health Care Education/Training Program
DX: O26.893 Other specified pregnancy related conditions, third trimester (principal); R51.9 Headache, unspecified; Z3A.30 30 weeks gestation of pregnancy
CPT/HCPCS: 59025; 96360; G0378; G0379; J2405

== ENCOUNTER → 2023-11-30 17:08 | Outpatient (CLI) | payer OTHER, SELFPAY ==
[2023-11-30 17:34] LABS: Add Manual Diff / Slide Review NO; Basophils Absolute Auto 100 /uL (0-100); Basophils Percent Auto 0.9 % (0-2); Eosinophils Absolute Auto 300 /uL (0-450); Eosinophils Percent Auto 2.2 % (2-4); Hematocrit 28.4 % (36-46); Hemoglobin 9.4 g/dL (12.0-16.0); Lymphocytes Absolute Auto 2200 /uL (1100-4500); Lymphocytes Percent Auto 17.7 % (25-40); Mean Corpuscular HGB Conc 33.1 % (30-36); Mean Corpuscular Hemoglobin 24.4 PG (26-34); Mean Corpuscular Volume 73.6 fL (80-100); Monocytes Absolute Auto 800 /uL (0-900); Neutrophils Absolute Auto 8800 /uL (1500-7000); Neutrophils Percent Auto 72.2 % (50-75); Platelet Count 301 X10^3/uL (150-400); Red Blood Cell Count 3.86 X10^6/uL (4.0-5.2); Red Cell Distribution Width 13.9 % (11.6-14.8); White Blood Cell Count 12.2 X10^3/uL (4.5-11.0)
== END ==
PROVIDERS: PCP Family Medicine; Referring Provider Family Medicine; Visit Provider Family Medicine
DX: Z34.80 Encounter for supervision of other normal pregnancy, unspecified trimester (principal)
CPT/HCPCS: 36415; 85025

== ENCOUNTER → 2023-12-11 08:43 | Outpatient (CLI) | payer OTHER, SELFPAY ==
--- NOTE | 2023-12-11 08:44 | DI.US.S_ITS ---
PROCEDURE: US OB LIMITED INDICATIONS: growth for size < dates OUTSIDE/PRIOR DATING DATA: Last menstrual period (LMP): 04/15/2023. LMP-based estimated date of delivery (CHAD): 01/20/2024. First dating scan (date and location): 06/17/2023. Estimated date of delivery (CHAD) from first dating scan: 01/16/2024. The calculations are made using the clinical CHAD of 01/20/2024. TECHNIQUE: Real-time scanning was performed of the fetus, with image documentation and biometric measurements. Endovaginal scanning: None COMPARISON: 10/19/2023 FINDINGS: General: A single living intrauterine gestation is present. Presentation: Vertex. Placenta: Placental position is posterior , without previa. Amniotic fluid index: 16.4 cm, normal range is 5-24 cm. Single deepest vertical pocket is 6.3 cm. heart rate: 152 beats per minute. Maternal cervical canal: 3.1 cm long. Normal lower limit is 2.5 cm. biometrics: Biparietal diameter: 9 cm, 36 weeks 2 days Head circumference: 32.5 cm, 36 weeks 6 days Abdominal circumference: 32.4 cm, 36 weeks 2 days Femur length: 6.6 cm, 34 weeks 1 day Clinically estimated gestational age: 34 weeks 2 days Composite gestational age from present scan: 35 weeks 6 days Estimated weight and percentile: 2765 g, 85th percentile Other: Not applicable. IMPRESSION: Single living intrauterine at 34 weeks 2 days, CHAD of 01/20/2024. Estimated weight of 2765 g, 85th percentile. We strive to produce accurate, complete, and clear reports of imaging services. To assist us in improving patient care, this report was composed using standard report templates and voice recognition software. Therefore, it may contain abnormal punctuation, insertions and/or omissions. Occasional wrong-word or sound-alike substitutions may occur. Though we review the report and make efforts to correct it, we do recommend that the report be read carefully in proper context to recognize any text inaccuracies. Dictated by: Kelton Yee M.D. on 12/11/2023 at 10:49 Approved by: Kelton Yee M.D. on 12/11/2023 at 10:51
== END ==
PROVIDERS: PCP Family Medicine; Referring Provider Family Medicine; Visit Provider Family Medicine
DX: Z34.83 Encounter for supervision of other normal pregnancy, third trimester (principal); Z3A.34 34 weeks gestation of pregnancy
CPT/HCPCS: 76815

== ENCOUNTER → 2023-12-28 15:43 | Outpatient (CLI) | payer OTHER, SELFPAY ==
[2023-12-28 17:44] LABS: Basophils Absolute Auto 100 /uL (0-100); Basophils Percent Auto 0.6 % (0-2); Eosinophils Absolute Auto 100 /uL (0-450); Eosinophils Percent Auto 0.8 % (2-4); Hematocrit 27.3 % (36-46); Hemoglobin 8.8 g/dL (12.0-16.0); Lymphocytes Absolute Auto 1900 /uL (1100-4500); Lymphocytes Percent Auto 15.8 % (25-40); Mean Corpuscular HGB Conc 32.2 % (30-36); Mean Corpuscular Hemoglobin 22.3 PG (26-34); Mean Corpuscular Volume 69.4 fL (80-100); Monocytes Absolute Auto 700 /uL (0-900); Monocytes Percent Auto 5.7 % (3-14); Neutrophils Absolute Auto 9400 /uL (1500-7000); Neutrophils Percent Auto 77.1 % (50-75); Platelet Count 253 X10^3/uL (150-400); Red Blood Cell Count 3.93 X10^6/uL (4.0-5.2); Red Cell Distribution Width 15.3 % (11.6-14.8); White Blood Cell Count 12.1 X10^3/uL (4.5-11.0)
[2023-12-28 17:46] LABS: Add Manual Diff / Slide Review SLIDE REVIEW
[2023-12-28 18:06] LABS: Anisocytosis 1+; Hypochromasia 1+; Microcytosis 2+
[2023-12-29 13:22] LABS: Strep Grp B PCR NEG for Grp B Strep
== END ==
PROVIDERS: PCP Family Medicine; Referring Provider Family Medicine; Visit Provider Family Medicine
DX: Z34.80 Encounter for supervision of other normal pregnancy, unspecified trimester (principal); D64.9 Anemia, unspecified
CPT/HCPCS: 36415; 85025; 87653

== ENCOUNTER 2024-01-10 01:21 | Inpatient (IN) | payer OTHER, SELFPAY ==
--- NOTE | 2024-01-10 02:04 | P.HPOB_ITS ---
OB HPI Date/Time Date of admission: 01/10/24 Date Patient Seen: 01/10/24 Time Patient Seen: 02:05 History of Present Condition Chief complaint: SROM with h/o prior CS x2 : 3 Para: 2 Estimated Date of Delivery: 01/16/24 Estimated Gestational Age (weeks): 39w1d Narrative: Kyleigh Medina is a 28 year old female at 39w3d D=8wk US with h/o prior CS x2 who presents to labor and delivery following gross rupture of clear fluid at midnight tonight. Pt states she was not experiencing any cramping or contractions prior to rupture however is now starting to feel increasing lower back pain as well as some mild cramping. Follows with Dr. Collazo, regular routine PNC throughout current gestation. course complicated by chronic maternal anemia non-compliant with iron supplementation, h/o maternal mood disorder (bipolar) stable on lamotrigine and started on high-dose folic acid with . Normal DI-FAS at 20wga, PNL reviewed and as below. +FM, denies VB. Anxious in anticipation that Dr. 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 Indications Operative indications ( section): previous uterine surgery (h/o prior CS x2) History of Present care: good care Dating criteria: LMP confirmed by 1st trimester US Ultrasounds: normal 1st trimester US and normal mid trimester US Obstetrical complications: other (maternal chronic anemia ) Medical complications: psychiatric (bipolar, stable on lamotrigine) Preadmission Labs Blood type: AB (+) positive -: Antibody screen: negative, GBS status: negative, HBsAG: negative, HIV: negative, HSV 1: negative, HSV 2: negative and RPR/VDLR: negative -: Chlamydia screen: not detected and Gonorrhea screen: not detected -: Rubella: immune and Varicella: immune HCT: 27.3 HCAB: negative Quad screen: Normal 1 hr GTT: 109 Prior (ies) History: G1 - failed operative delivery (forceps), primary CS G2 - RCS G3 - current Evaluation Evaluation Baseline heart rate: 135 Variability: Moderate (11-25) monitor accelerations: Present Monitor Decelerations: Absent Contraction Frequency (minutes): 10 Category of Tracing: Reactive Status: Category l Comments: gross rupture confirmed on arrival per amn[facility] Medical History (Updated 07/02/23 @ 00:01 by ) COVID-19 Right hip pain (~2018) Dermatitis Seasonal allergic rhinitis Pneumonia (~2014) H/O transfusion of whole blood (~10/2018) Asthma Bipolar disorder Surgical History (Updated 06/10/23 @ 08:09 by Andra Benítez, RN) Myra teeth extracted (~06/2019) S/P (~11/04/18) Family History (Updated 06/10/23 @ 08:15 by Andra Benítez, [place]) Mother Asthma Father Diabetes mellitus Type 1 diabetes Cardiac anomaly Neuropathy Grandmother Stroke Grandfather No problems noted. Grandmother Parkinson's disease Grandfather Unknown whether patient has any health problems Family estrangement Family/Other Hypertension Stroke Aunt Stroke Brother No problems noted. Sister Eczema Social History marital status: number of children: 2 household members: spouse and children lives independently: Yes caregiver/support person: Yes housing: house pets and animals: Yes (dog) education level: college (some college) occupational status: employed current occupational exposures/hazards: No Previous occupational history: Vocational Rehab special melissa needs: No travel history: recent (domestic only) seatbelt use: always helmet use: Yes water heater temp set < 120 deg: Yes working smoke detector in home: Yes fire extinguisher in home: Yes carbon monox detector in home: Yes firearms in home: Yes firearms unloaded and locked: Yes Smoking Status: Never smoker second hand exposure: No alcohol intake: never substance use type: does not use during the past year weight has: remained stable well-balanced diet: rarely or never daily servings fruits/ve-1 caffeine: Yes (1-2 cups coffee) Type(s) of exercise: walking and bicycling Meds Home Medications and Allergies Home Medications Medication Instructions Recorded Confirmed Type fluticasone propionate 50 1 spray intranasal DAILY PRN 03/22/18 01/04/24 History mcg/actuation nasal allergy symptoms spray,suspension prenat.vits,zack,kfr-ipxy-ddqgl 1 tab PO DAILY 10/08/20 01/04/24 History lamotrigine 100 mg tablet 200 mg (2 x 100 mg) PO QPM #60 tabs 12/15/23 01/04/24 Rx Allergies Allergy/AdvReac Type Severity Reaction Status Date / Time minocycline AdvReac Intermediate Vomiting Verified 01/04/24 10:53 sulfamethoxazole AdvReac Intermediate nausea, Verified 01/04/24 10:53 [From Bactrim] vomiting, dizziness trimethoprim [From Bactrim] AdvReac Intermediate nausea, Verified 01/04/24 10:53 vomiting, dizziness Review of Systems Review of Systems ROS: Yes All systems reviewed with the patient and are negative except as otherwise documented OB Exam Vital signs Blood Pressure: 117/59 Pulse Rate: 90 Respiratory Rate: 20 Temperature: 97.7 F Narrative Exam Narrative: anxious appearing, NAD HENMT Head: normal to inspection Eyes General: appearance normal, both eyes and all related structures Resp Effort & Inspection: normal respiratory effort Cardio Rate: regular rate Extremities Lower extremity: Yes normal to inspection GI Inspection: normal to inspection Palpation: Yes soft Other: gravid, size c/w dates zach 8-8.5# Other: exam deferred per shared decision making with patient Objective Labs Labs: T&S, CBC ordered on admission, pending Assessment and Plan Assessment and Plan Assessment and Plan narrative: 28yo at 39w1d D=8wk US presents to labor and delivery following SROM prior to arrival, h/o prior CS x2 with indication for repeat now in early latent labor Term rupture, h/o prior CS x2 Gross rupture confirmed per amnisure on arrival Irregular contraction pattern, on-call OR team notified per RN coordinator, peds notified per RN Cat 1 tracing, maternal VSS/afebrile PNL as above, GBS negative 2g IV ancef + 500mg IV azithromycin ordered CBC, T&S on admission - crossmatch 2u h/o maternal chronic anemia set up 2u pRBC pt amenable to blood transfusion as medically indicated anticipate continuation of FeSO4 supplementation at discharge h/o maternal mood disorder (bipolar) stable on lamotrigine, addition of high dose folic acid in continue home medications high risk PPD, anticipate close f/u per primary OB Patient is consented for repeat section. Patient additionally consents to transfusion of blood products as medically indicated. Risks benefits and alternatives to procedure were reviewed including increased risk of scar tissue and injury to adjacent structures in the setting of repeat surgical procedure. Patient verbalized understanding and desires to proceed Dispo: admit for repeat section Time-Based Coding :: [25min spent with patient and on the chart (including review of chart, obtaining history, exam, reviewing outside data, placing orders, documenting exam and treatment plan, and counseling patient) on [01/10/24].
[2024-01-10 02:23] VITALS: BP 117/59; PULSE 90; RESP 20; TEMP 36.5
[2024-01-10 02:28] LABS: Add Manual Diff / Slide Review NO; Basophils Absolute Auto 100 /uL (0-100); Basophils Percent Auto 0.7 % (0-2); Eosinophils Absolute Auto 100 /uL (0-450); Eosinophils Percent Auto 1.2 % (2-4); Hematocrit 25.7 % (36-46); Hemoglobin 8.2 g/dL (12.0-16.0); Lymphocytes Absolute Auto 2300 /uL (1100-4500); Lymphocytes Percent Auto 20.8 % (25-40); Mean Corpuscular HGB Conc 31.8 % (30-36); Mean Corpuscular Hemoglobin 21.8 PG (26-34); Mean Corpuscular Volume 68.5 fL (80-100); Monocytes Absolute Auto 600 /uL (0-900); Monocytes Percent Auto 5.2 % (3-14); Neutrophils Absolute Auto 8000 /uL (1500-7000); Neutrophils Percent Auto 72.1 % (50-75); Platelet Count 202 X10^3/uL (150-400); Red Blood Cell Count 3.75 X10^6/uL (4.0-5.2); Red Cell Distribution Width 16.6 % (11.6-14.8)
[2024-01-10] MEDS: CITRIC ACID/SODIUM CITRATE 15 ML SOLUTION 30 ML PO (02:44)
--- NOTE | 2024-01-10 02:49 | PM.PREOP ---
Pre-operative Note Interval Note History & Physical reviewed/Exam performed by Physician: Yes Changes to H&P: No
[2024-01-10 02:53] LABS: Anisocytosis 2+; Hypochromasia 1+; Microcytosis 2+
[2024-01-10] MEDS: LACTATED RINGERS 1,000 ML 42 ML IV (02:55)
[2024-01-10] MEDS: CEFAZOLIN 2 GM/100 ML PREMIX 100 ML IV (03:17)
[2024-01-10] MEDS: AZITHROMYCIN 500 MG in DEXTROSE 5% IN WATER 250 ML 250 MG IV (03:22)
[2024-01-10] MEDS: TRANEXAMIC ACID 1,000 MG VIAL 1000 MG (03:39)
--- NOTE | 2024-01-10 03:45 | SUR.OPER ---
Viable baby boy born at 0337. Cord blood and placenta given to OB RN Rafiq Mckenna.
[2024-01-10] MEDS: ACETAMINOPHEN IV 1,000 MG/100 ML VIAL 400 MG IV (03:48)
--- NOTE | 2024-01-10 04:12 | PM.OBCS.1 ---
Operative Date/Time/Diagnoses Date of procedure: 01/10/24 Time of procedure: 03:20 Pre-op diagnosis: 38w4d gestation GBS negative Rh positive SROM Bipolar disorder Anemia Hx of prior Post-op diagnosis: same Procedure & Clinicians Procedure: Repeat Same procedure as scheduled: Yes Indications: Hx of prior , SROM Surgeon: Evie Collazo Editor Greeting Card: Eda Fernandez Anesthesia Type: Spinal Operative Notes Findings: Normal uterus, ovaries, and tubes Closure Type: primary Specimen(s): cord blood Intraoperative meds administered: Ketorolac, Pitocin and Tranexamic acid Applied: Catheter Estimated Blood Loss (mL): 600 Blood products transfused: none Procedure in detail: OPERATIVE COURSE: The patient was taken to the operating room where spinal anesthesia was placed. She was then prepared and draped in the normal sterile fashion in the dorsal supine position with a leftward tilt. Anesthesia was tested and found to be adequate. A Pfannensteil skin incision was then made with the scalpel and carried through to the underlying layer of fascia with the scalpel. The fascia was incised in the midline and the incision extended laterally with the Montero scissors. The superior aspect of the fascial incision was then grasped with Vineet clamps, elevated with the help of the surgical garment fitter, and the underlying rectus muscles dissected off bluntly and sharply where needed. Attention was then turned to the inferior aspect of the incision which, in a similar fashion, was grasped, tented up with Vineet clamps, and the rectus muscle dissected off bluntly and sharply with Montero scissors. The rectus muscles were then in the midline, and the peritoneum was identified and entered bluntly. The peritoneal incision was then extended with good visualization of the bladder. Retraction was provided by the surgical garment fitter. The bladder blade was then inserted and the vesicouterine peritoneum identified, grasped with pick-ups and entered sharply with the Metzenbaum scissors. The incision was then extended laterally and the bladder flap created digitally. The bladder blade was then reinserted and the lower uterine segment incised in a transverse fashion with the scalpel, with the surgical garment fitter providing suction. The uterine incision was then extended superolaterally by pulling superolaterally on both sides. Membranes were ruptured and fluid was clear. The bladder blade was removed the 's head was flexed out of LOT position and delivered atraumatically, with fundal pressure by the surgical garment fitter. The nose and mouth were suctioned with bulb suction and the cord was clamped and cut. The infant was handed off to the waiting nursing staff. Cord blood was collected for Rh status. The placenta was then delivered with gentle cord traction. The uterus was then exteriorized and cleared of all clots and debris. The uterine incision was repaired with 1-Chromic in a running, locked fashion. A second layer of O-Vicryl was used for imbrication. A single mqipvg-jd-epnrv as completed on the left side of the incision with O-Vicryl for excellent hemostasis. Due to initially poor tone, TXA was given in addition to the usual pitocin. The uterus was returned to the abdomen. The gutters were cleared of all clots. Hysterotomy was investigated and found to be hemostatic. Permaclot was placed in an inverted T-shape over the hysterotomy. The fascia was reapproximated with 1-Vicryl in a running fashion. The skin was closed with 4-O Monocryl. The surgical garment fitter helped with retraction during closures. SPONGE AND NEEDLE COUNTS: Correct x3. DRESSING: Aquacel ANTICOAGULATION: SCDs applied prior to Surgery Preop antibiotics given (see MAR). The patient was taken to recovery room having tolerated procedure well. Complications: none Baby 1: Infant Gender: Male Presentation: vertex Position: Left Occiput Transverse Placental Delivery Description: Spontaneous Cord Vessel Description: 3 Vessels score (1 min): 9 score (5 min): 9 weight: 8 lb 11.015 oz Post-operative Condition: stable Disposition: PACU Aftercare: routine postop
[2024-01-10 04:27] VITALS: BP 99/56; PULSE 79; RESP 14; TEMP 36.2; O2SAT 96
[2024-01-10 04:31] VITALS: BP 103/62; PULSE 82; RESP 15; O2SAT 96
[2024-01-10 04:37] VITALS: BP 102/61; PULSE 84; RESP 15; O2SAT 96
[2024-01-10 04:41] VITALS: BP 89/56; PULSE 81; RESP 14; O2SAT 95
[2024-01-10 05:29] VITALS: BP 117/59
[2024-01-10] MEDS: OXYCODONE IR 5 MG TABLET PO (05:48)
[2024-01-10] MEDS: ONDANSETRON 4 MG/2 ML INJ IV ×2 (06:53→11:23)
[2024-01-10] MEDS: METOCLOPRAMIDE 10 MG/2 ML INJ IV (07:26)
[2024-01-10 09:52] LABS: Add Manual Diff / Slide Review NO; Basophils Absolute Auto 0 /uL (0-100); Basophils Percent Auto 0.2 % (0-2); Eosinophils Absolute Auto 0 /uL (0-450); Hemoglobin 7.6 g/dL (12.0-16.0); Lymphocytes Absolute Auto 800 /uL (1100-4500); Lymphocytes Percent Auto 5.4 % (25-40); Mean Corpuscular HGB Conc 31.5 % (30-36); Mean Corpuscular Hemoglobin 21.5 PG (26-34); Mean Corpuscular Volume 68.2 fL (80-100); Monocytes Absolute Auto 300 /uL (0-900); Monocytes Percent Auto 2.2 % (3-14); Neutrophils Absolute Auto 13600 /uL (1500-7000); Neutrophils Percent Auto 92.2 % (50-75); Platelet Count 192 X10^3/uL (150-400); Red Blood Cell Count 3.52 X10^6/uL (4.0-5.2); Red Cell Distribution Width 15.9 % (11.6-14.8); White Blood Cell Count 14.7 X10^3/uL (4.5-11.0)
[2024-01-10] MEDS: KETOROLAC 30 MG/ML VIAL IV ×3 (10:22→23:15)
[2024-01-10 10:54] LABS: Anisocytosis 1+; Hypochromasia 1+; Microcytosis 1+
[2024-01-10] MEDS: ACETAMINOPHEN 325 MG TABLET 650 MG PO ×2 (17:01→23:16)
[2024-01-10] MEDS: lamoTRIgine 100 MG TABLET 200 MG PO (21:21)
[2024-01-10] MEDS: IRON SUCROSE 300 MG in SODIUM CHLORIDE 0.9% 250 ML 176.667 MG IV (22:13)
[2024-01-11] MEDS: IBUPROFEN 600 MG TABLET PO (05:50)
[2024-01-11] MEDS: ACETAMINOPHEN 325 MG TABLET 650 MG PO (05:50)
[2024-01-11 08:00] VITALS: BP 105/65; PULSE 90; RESP 15; TEMP 36.2
[2024-01-11 10:28] LABS: Appearance Urine UA CLEAR; Bilirubin Urine UA NEGATIVE (NEGATIVE); Color Urine UA YELLOW; Glucose Urine UA NEGATIVE (Negative); Ketones Urine UA NEGATIVE (NEGATIVE); Leukocyte Esterase Urine UA NEGATIVE (NEGATIVE); Nitrite Urine UA NEGATIVE (Negative); Occult Blood Urine UA 3+ (Negative); Protein Urine UA NEGATIVE (Negative); Specific Gravity Urine UA <=1.005 (1.000-1.035); Urobilinogen Urine UA 0.2 E.U./dL (0.2)
[2024-01-11 10:29] LABS: pH Urine UA 6.5 (4.5-8.0)
[2024-01-11 10:36] LABS: Bacteria Urine None Seen; Culture Indicated Urine Cult Not Indicated; RBC Urine 10-30/HPF (0-5/HPF); Squamous Epithelial Cell Urine 5-10 /HPF (0-5/HPF); Urine Volume 10mL (spun); WBC Urine 1-5/HPF (0-5/HPF)
--- NOTE | 2024-01-11 10:51 | PM.OBDS.1 ---
Discharge Providers Provider Date of admission: 01/10/24 01:21 Discharge Date: 01/11/24 Primary care physician: Evie Collazo MD Consults: 01/10/24 05:03 Consult to Assembler [employer] Routine Comment: Discharge provider: Evie Collazo MD Summary Hospital Course Date Patient Seen: 01/11/24 Diagnoses: 38w4d gestation GBS negative Rh positive SROM Bipolar disorder Anemia, acute blood loss on chronic Hx of prior Hospital Course: The pt presented in early labor with SROM at home. She underwent repeat without complications, and delivered a viable baby boy. , the pt had significant dizziness and mild hypotension. Her blood count was noted to be 7.6. She received an IVF bolus and IV iron, and her symptoms resolved. There were no additional complications. At the time of discharge she was voiding, ambulating, and passing flatus without difficulty. Her lochia was decreasing appropriately. Her pain was well controlled. She was with good latch, and supplementing with small amounts of formula as well. She will f/u in 1 week for incision check. Peripartum Data Infant Delivery Method: Section Procedures: Repeat Row[place] 1: Gender: Male Disposition of : home Time Spent with Patient Time attestation: Total time spent providing and/or coordinating discharge services: Objective Labs 01/10/24 09:46 Labs: Laboratory Results - last 24 hr 01/10/24 01/11/24 09:46 09:45 RBC Morphology See below Hypochromasia 1+ H Anisocytosis 1+ H Microcytosis 1+ H Urine Color Yellow Urine Appearance Clear Urine pH 6.5 Ur Specific [place] <=1.005 Urine Protein Negative Urine Glucose (UA) Negative Urine Ketones Negative Urine Occult Blood 3+ H Urine Nitrate Negative Urine Bilirubin Negative Urine Urobilinogen 0.2 Ur Leukocyte Esterase Negative Urine RBC 10-30/hpf H Urine WBC 1-5/hpf Ur Squamous Epith Cells 5-10 /hpf H Urine Bacteria None seen Ur Culture Indicated? Cult not indicated Vol Urine Centrifuged 10ml (spun) Exam Vital Signs (past 8 hours): Oxygen Delivery Method Room Air Resp Auscultation: clear to auscultation bilaterally Cardio Rate: regular rate Rhythm: regular rhythm Heart Sounds: S1 normal, S2 normal and no murmurs GI Inspection: non-distended and incision (dressing c/d/i) Palpation: soft, No guarding and tender (appropriately tender) Auscultation: normal bowel sounds Other: fundus firm and below the umbilicus Extrem Right upper extremity: no edema Discharge Plan Discharge Plan Patient Disposition: Home Discharge orders & Medications Prescriptions: New acetaminophen 325 mg Tablet 650 mg PO Q6H Qty: 60 0RF docusate sodium 100 mg Capsule 100 mg PO DAILY Qty: 30 0RF ferrous sulfate 325 mg (65 mg iron) Tablet 325 mg PO DAILY Qty: 30 0RF ibuprofen 600 mg Tablet 600 mg PO Q6H Qty: 60 0RF oxycodone 5 mg Tablet 5 mg PO Q4H PRN (Reason: Pain, Moderate (4-6)) Qty: 30 0RF Continued lamotrigine 100 mg tablet 200 mg PO QPM Qty: 60 0RF prenat.vits,zack,baj-gour-adoqr Tablet 1 tab PO DAILY fluticasone propionate 50 mcg/actuation spray,suspension 1 spray NASAL DAILY PRN (Reason: allergy symptoms) Follow up/Referrals: Evie Collazo MD [Primary Care Provider] - (1 week Incision check w/ Dr. Collazo: January 18 @ 10:45am) Diet/Activity/Treatments Diet: Diet as Tolerated and Regular Skin/Wound/Dressing Care Report to your healthcare provider any signs of infection, such as:: chills, fever, increased pain and unusual drainage Visit Report/Discharge Packet Instructions: Depression, DI for Stand Alone Forms: Discharge: Care, Patient Portal/API, Stroke Signs & Symptoms Discharge Data Primary Care Provider: Evie Collazo Discharges patient from system. Discharge Date/Time: 01/11/24 11:01
== END 2024-01-11 11:01 | disposition home or self-care (01) | DRG 787 ==
PROVIDERS: Admitting Provider Obstetrics & Gynecology; PCP Family Medicine; Referring Provider Obstetrics & Gynecology; Visit Provider Obstetrics & Gynecology
PROC: 10D00Z1 Extraction of Products of Conception, Low, Open Approach (ICD-10-PCS; CPT 59514; principal; 2024-01-10 03:00)
DX: O34.211 Maternal care for low transverse scar from previous cesarean delivery (principal); D62 Acute posthemorrhagic anemia; O99.03 Anemia complicating the puerperium; Z3A.38 38 weeks gestation of pregnancy; Z37.0 Single live birth
CPT/HCPCS: 36415; 59050; 81001; 85025; 86850; 86900; 86901; G0379; J0136; J0690; J1100; J1756; J1885; J2274; J2405; J2765

== ENCOUNTER → 2024-01-19 11:21 | Outpatient (CLI) | payer OTHER, SELFPAY | PROVIDERS: PCP Family Medicine; Visit Provider Family Medicine | DX: R39.9 Unspecified symptoms and signs involving the genitourinary system (principal); R30.0 Dysuria | CPT/HCPCS: 87086 ==

== ENCOUNTER → 2024-02-24 10:23 | Outpatient (CLI) | payer OTHER, SELFPAY ==
--- NOTE | 2024-02-24 10:24 | DI.US.S_ITS ---
PROCEDURE: US PELVIC COMPLETE INDICATIONS: POST BLEEDING TECHNIQUE: Real-time scanning was performed of the pelvic organs, with image documentation. Additional endovaginal scanning was necessary due to incomplete visualization of the adnexal and endometrial structures by transabdominal scanning. COMPARISON: [facility], PELVIC COMPLETE, 02/17/2020, 16:28. [facility], , US OB LIMITED, 12/11/2023, 9:12. [facility], , PELVIC COMPLETE, 08/23/2020, 16:25. FINDINGS: Uterus: 8.1 x 5 x 6.7 cm. Endometrium is 8 mm thick, without definite retained products or focal vascularity. However, there is a 3.6 x 5.1 cm collection versus mass anterior to the scar. Ovaries: Nonenlarged bilaterally. These are only seen on transabdominal imaging. Other: No other pathologic free fluid. IMPRESSION: Anterior to the scar, there is a 5.1 x 3.6 cm complicated appearing lesion that may represent a hematoma. Differential includes a mass such as fibroid, although no fibroid of this size was seen on more remote pelvic ultrasounds. No obvious endometrial retained products are identified. Clinical follow-up with surveillance imaging suggested depending on clinical context with ultrasound or MRI. Dictated by: Manny Dietz M.D. on 02/24/2024 at 10:56 Approved by: Manny Dietz M.D. on 02/24/2024 at 11:00
== END ==
PROVIDERS: PCP Family Medicine; Referring Provider Family Medicine; Visit Provider Family Medicine
DX: N93.9 Abnormal uterine and vaginal bleeding, unspecified (principal); L98.8 Other specified disorders of the skin and subcutaneous tissue
CPT/HCPCS: 76830; 76856

== ENCOUNTER 2024-06-24 19:24 | Emergency (ER) | payer OTHER, SELFPAY ==
[2024-06-24 19:30] VITALS: BP 89/59; PULSE 121; RESP 22; TEMP 36.9; BMI 23.0
[2024-06-24] MEDS: ONDANSETRON 4 MG/2 ML INJ IV (20:17)
--- NOTE | 2024-06-24 21:20 | ED_ITS ---
HPI - Nausea/Vomiting/Diarrhea General Chief complaint: Nausea/Vomiting/Diarrhea Stated complaint: nausea vomiting diarrhea Time Seen by Provider: 06/24/24 19:40 Source: patient Mode of arrival: Ambulatory History of Present Illness HPI Narrative: 28-year-old female presents by private vehicle from home for evaluation of nausea, vomiting, diarrhea for 1 day. Reports that child at home seen in the ER several days prior for similar symptoms and diagnosed with gastroenteritis. She states that she has the exact same symptoms but she was also feeling generally fatigued with low back pain. She is on her menstrual cycle and states that low back pain with her cycles isn't common. No medications taken at home prior to symptoms. Related Data Home Medications Medication Instructions Recorded Confirmed fluticasone propionate 50 1 spray intranasal DAILY PRN 03/22/18 02/24/24 mcg/actuation nasal allergy symptoms spray,suspension prenat.vits,zack,ino-mrwg-peike 1 tab PO DAILY 10/08/20 02/24/24 Previous Rx's Medication Instructions Recorded acetaminophen 325 mg tablet 650 mg (2 x 325 mg) PO Q6H #60 tabs 01/11/24 docusate sodium 100 mg capsule 100 mg PO DAILY #30 caps 01/11/24 ferrous sulfate 325 mg (65 mg 325 mg PO DAILY #30 tabs 01/11/24 iron) tablet ibuprofen 600 mg tablet 600 mg PO Q6H #60 tabs 01/11/24 oxycodone 5 mg tablet 5 mg PO Q4H PRN Pain, Moderate 01/11/24 (4-6) #30 tabs tranexamic acid 650 mg tablet 1,300 mg (2 x 650 mg) PO TID #30 02/24/24 tabs lamotrigine 100 mg tablet 200 mg (2 x 100 mg) PO QPM #60 tabs 04/05/24 ondansetron 4 mg disintegrating 4 mg PO Q8H PRN nausea and 06/24/24 tablet vomiting #30 tabs Allergies Allergy/AdvReac Type Severity Reaction Status Date / Time minocycline AdvReac Intermediate Vomiting Verified 02/24/24 09:43 sulfamethoxazole AdvReac Intermediate nausea, Verified 02/24/24 09:43 [From Bactrim] vomiting, dizziness trimethoprim [From Bactrim] AdvReac Intermediate nausea, Verified 02/24/24 09:43 vomiting, dizziness Patient History Medical History COVID-19 Right hip pain (~2018) Dermatitis Seasonal allergic rhinitis Pneumonia (~2014) H/O transfusion of whole blood (~10/2018) Asthma Bipolar disorder Surgical History [place] teeth extracted (~06/2019) S/P (~11/04/18) Family History Mother Asthma Father Diabetes mellitus Type 1 diabetes Cardiac anomaly Neuropathy Grandmother Stroke Grandfather No problems noted. Grandmother Parkinson's disease Grandfather Unknown whether patient has any health problems Family estrangement Family/Other Hypertension Stroke Aunt Stroke Brother No problems noted. Sister Eczema Social History marital status: number of children: 2 household members: spouse and children lives independently: Yes caregiver/support person: Yes housing: house pets and animals: Yes (dog) education level: college (some college) occupational status: employed current occupational exposures/hazards: No Previous occupational history: Vocational [employer] special melissa needs: No travel history: recent (domestic only) seatbelt use: always helmet use: Yes water heater temp set < 120 deg: Yes working smoke detector in home: Yes fire extinguisher in home: Yes carbon monox detector in home: Yes firearms in home: Yes firearms unloaded and locked: Yes Smoking Status: Never smoker second hand exposure: No alcohol intake: never substance use type: does not use during the past year weight has: remained stable well-balanced diet: rarely or never daily servings fruits/ve-1 caffeine: Yes (1-2 cups coffee) Type(s) of exercise: walking and bicycling Smoking Status: Never smoker alcohol intake frequency: 0-2 drinks per day Exam Initial Vital Signs Initial Vital Signs: Vital Signs Temperature 98.4 F 06/24/24 19:30 Pulse Rate 121 H 06/24/24 19:30 Respiratory Rate 22 06/24/24 19:30 Blood Pressure 89/59 L 06/24/24 19:30 Oxygen Delivery Method Room Air 06/24/24 19:30 Const: Awake, alert, no acute distress, nontoxic appearing Cardiac: tachycardia, regular rhythm RESP: unlabored, clear bilaterally, no wheezing GI: Soft, nontender, nondistended, no rebound, no guarding Skin: Warm, Dry, intact, no rashes Neuro: AO x3, CN II-XII grossly intact, moves all extremities Course Orders Ordered: ED Orders 06/24/24 19:40 CBC Auto Diff [Complete Blood Count AUTO DIFF] Stat CMP [Comprehensive Metabolic Panel] Stat Lipase Stat Discontinued Medications Ketorolac Tromethamine (Ketorolac 30 Mg/Ml Vial) 15 mg IV NOW ONE Stop: 06/24/24 21:20 Last Admin: 06/24/24 21:29 Dose: 15 mg Documented By: SANDRA Ondansetron HCl (Ondansetron 4 Mg/2 Ml Inj) 4 mg IV NOW PRN PRN Reason: Nausea And Vomiting Last Admin: 06/24/24 20:17 Dose: 4 mg Documented By: CHRISTY Ondansetron HCl (Ondansetron 4 Mg Odt) 4 mg SL NOW PRN PRN Reason: Nausea And Vomiting Vital Signs Vital signs: Vital Signs - 8 hr 06/24/24 19:30 06/24/24 21:55 Temperature 98.4 F 98.6 F Pulse Rate 121 H 98 H Respiratory Rate 22 18 Blood Pressure 89/59 L 88/51 L Pulse Oximetry 98 Oxygen Delivery Method Room Air Room Air MDM - Nausea/Vomiting/Diarrhea Differential Diagnosis Differential diagnosis: Likely traveler's diarrhea, food poisoning and gastroenteritis Lab Data 06/24/24 19:40 06/24/24 19:40 Labs: Lab Results 06/24/24 Range/Units 19:40 WBC 13.7 H (4.5-11.0) X10^3/uL RBC 5.56 H (4.0-5.2) X10^6/uL Hgb 13.6 (12.0-16.0) g/dL Hct 41.9 (36-46) % MCV 75.4 L (80-100) fL MCH 24.5 L (26-34) PG MCHC 32.5 (30-36) % RDW 16.4 H (11.6-14.8) % Plt Count 337 (150-400) X10^3/uL Neut % (Auto) 95.1 H (50-75) % Lymph % (Auto) 1.9 L (25-40) % Prentiss % (Auto) 2.3 L (3-14) % Eos % (Auto) 0.3 L (2-4) % Baso % (Auto) 0.4 (0-2) % Neut # (Auto) 76830 H (5139-0795) /uL Lymph # (Auto) 300 L (3565-0952) /uL Prentiss # (Auto) 300 (0-900) /uL Eos # (Auto) 0 (0-450) /uL Baso # (Auto) 100 (0-100) /uL Sodium 137 (137-145) mmol/L Potassium 3.8 (3.4-5.1) mmol/L Chloride 106 (98-107) mmol/L Carbon Dioxide 18 L (22-32) mmol/L BUN 16 (7-17) mg/dL Creatinine 0.95 (0.52-1.04) mg/dL Estimated GFR > 60 (>60) mL/min BUN/Creatinine Ratio 16.8 (6-22) Glucose 134 H (70-100) mg/dL Calcium 9.7 (8.4-10.2) mg/dL Total Bilirubin 1.2 (0.2-1.3) mg/dL AST 29 (14-36) IU/L ALT 29 (<35) IU/L Alkaline Phosphatase 63 (38-126) U/L Total Protein 8.8 H (6.3-8.2) g/dL Albumin 5.3 H (3.5-5.0) g/dL Globulin 3.5 (1.7-4.1) g/dL Albumin/Globulin Ratio 1.5 (1.0-2.8) Lipase 79 (23-300) U/L [facility] Narrative Medical decision making narrative: Well-appearing patient with symptoms consistent with gastroenteritis. She states that the reason she came in is because she was feeling ?shaky? at home. Initially tachycardic on arrival with borderline low blood pressure. Record review shows that patient has consistent low blood pressures and this is not too far off her baseline. Abdomen soft, no reproducible tenderness to light or deep palpation. Symptoms has been ongoing for less than 12 hours. Based on family members with similar symptoms and otherwise benign exam no indication for imaging at this time. Blood work ordered shows no anemia, electrolyte abnormalities. Patient given medications for nausea and pain with improvement in symptoms. She was able to tolerate p.o.. Patient is prescription for Zofran sent to pharmacy of choice. Recommended supportive care measures for home. Discharge Plan Departure Patient Disposition: Home Clinical Impression: Gastroenteritis Instructions: DI for Viral Gastroenteritis -- Adult Activity Restrictions/Additional Instructions: Your laboratory work shows no electrolyte abnormalities. You may take Tylenol and ibuprofen as needed for discomfort. Use the Zofran prescribed for nausea and vomiting. Follow a light diet over the next several days. The back pain may be related to either the gastroenteritis or your menstrual cycle, but should resolve with time. Prescriptions: New ondansetron 4 mg tablet,disintegrating 4 mg PO Q8H PRN (Reason: nausea and vomiting) Qty: 30 0RF No Action tranexamic acid 650 mg tablet 1,300 mg PO TID Qty: 30 0RF lamotrigine 100 mg tablet 200 mg PO QPM Qty: 60 2RF prenat.vits,zack,ayb-mzxl-ignbv Tablet 1 tab PO DAILY fluticasone propionate 50 mcg/actuation spray,suspension 1 spray NASAL DAILY PRN (Reason: allergy symptoms) acetaminophen 325 mg Tablet 650 mg PO Q6H Qty: 60 0RF docusate sodium 100 mg Capsule 100 mg PO DAILY Qty: 30 0RF ferrous sulfate 325 mg (65 mg iron) Tablet 325 mg PO DAILY Qty: 30 0RF ibuprofen 600 mg Tablet 600 mg PO Q6H Qty: 60 0RF oxycodone 5 mg Tablet 5 mg PO Q4H PRN (Reason: Pain, Moderate (4-6)) Qty: 30 0RF Referrals: Evie Collazo MD [Primary Care Provider] - Stand Alone Forms: Patient Portal/API/Survey
[2024-06-24] MEDS: KETOROLAC 30 MG/ML VIAL 15 MG IV (21:29)
[2024-06-24 21:31] LABS: Add Manual Diff / Slide Review NO; Basophils Absolute Auto 100 /uL (0-100); Basophils Percent Auto 0.4 % (0-2); Eosinophils Absolute Auto 0 /uL (0-450); Eosinophils Percent Auto 0.3 % (2-4); Hematocrit 41.9 % (36-46); Hemoglobin 13.6 g/dL (12.0-16.0); Lymphocytes Absolute Auto 300 /uL (1100-4500); Lymphocytes Percent Auto 1.9 % (25-40); Mean Corpuscular HGB Conc 32.5 % (30-36); Mean Corpuscular Hemoglobin 24.5 PG (26-34); Mean Corpuscular Volume 75.4 fL (80-100); Monocytes Absolute Auto 300 /uL (0-900); Monocytes Percent Auto 2.3 % (3-14); Neutrophils Absolute Auto 13000 /uL (1500-7000); Neutrophils Percent Auto 95.1 % (50-75); Platelet Count 337 X10^3/uL (150-400); Red Blood Cell Count 5.56 X10^6/uL (4.0-5.2); Red Cell Distribution Width 16.4 % (11.6-14.8); White Blood Cell Count 13.7 X10^3/uL (4.5-11.0)
[2024-06-24 21:37] LABS: Alanine Aminotransferase 29 IU/L (<35); Albumin 5.3 g/dL (3.5-5.0); Albumin Globulin Ratio 1.5 (1.0-2.8); Alkaline Phosphatase 63 U/L (38-126); Aspartate Aminotransferase 29 IU/L (14-36); BUN Creatinine Ratio 16.8 (6-22); Bilirubin Total 1.2 mg/dL (0.2-1.3); Blood Urea Nitrogen 16 mg/dL (7-17); Calcium 9.7 mg/dL (8.4-10.2); Carbon Dioxide 18 mmol/L (22-32); Chloride 106 mmol/L (98-107); Estimated Glomerular Filt Rate > 60 mL/min (>60); Globulin 3.5 g/dL (1.7-4.1); Glucose 134 mg/dL (70-100); HEMOLYSIS < 15 (0-50); Lipase 79 U/L (23-300); Potassium 3.8 mmol/L (3.4-5.1); Sodium 137 mmol/L (137-145); Total Protein 8.8 g/dL (6.3-8.2)
[2024-06-24 21:55] VITALS: BP 88/51; PULSE 98; RESP 18; TEMP 37; O2SAT 98
== END 2024-06-24 21:56 | disposition home or self-care (01) ==
PROVIDERS: Emergency Provider Emergency Medicine; PCP Family Medicine
DX: K52.9 Noninfective gastroenteritis and colitis, unspecified (principal); R11.2 Nausea with vomiting, unspecified
CPT/HCPCS: 80053; 83690; 85025; 96374; 96375; 99283; 99284; J1885; J2405